=== PATIENT | female | born 1970 | race Hispanic/Latino ===

== ENCOUNTER 2017-08-30 21:19 | Emergency (ER) | payer SELFPAY ==
--- NOTE | 2017-08-30 22:02 | CT ---
CT HEAD WITHOUT IV CONTRAST 08/30/17 HISTORY: Slurred speech and headache. COMPARISON: 05/24/17 FINDINGS: There is no evidence of an acute infarction, hemorrhage, mass effect, or midline shift. Ventricular system is normal in size, shape and position. There has been no interval change from prior study. IMPRESSION: 1. No acute intracranial abnormality is demonstrated. 2. Above findings discussed with Dr. Marie in the Emergency Department on 08/30/17 at [address] POS: [facility]
[2017-08-30 22:06] LABS: Hematocrit 44.3 % (36.0-47.0); Mean Platelet Volume 7.4 fL (7.4-10.4); White Blood Cell (WBC) Count 9.4 thou/uL (4.8-10.8)
[2017-08-30 22:07] LABS: #Eosinphils 0.9 thou/uL (0.0-0.7); #Lymphocytes 4.4 thou/uL (1.20-3.40); #Monocytes 0.5 thou/uL (0.11-0.59); #Neutrophils 3.5 thou/uL (1.40-6.50); %Basophils 0.3 % (0.0-1.0); %Eosinophils 9.2 % (0.0-10.0); %Lymphocytes 47.3 % (21.0-51.0); %Monocytes 5.6 % (0.0-10.0)
[2017-08-30 22:15] LABS: PTT 26.3 SEC (22.9-36.1); Prothrombin Time 15.9 SEC (12.0-14.7)
[2017-08-30 23:18] LABS: Bilirubin Small (Negative); Blood, Urine Negative (Negative); Glucose, Urine (Dipstick) 500 mg/dL (Negative); Ketone, Urine Negative (Negative); Nitrite Negative (Negative); Protein, Urine (Dipstick) 30 mg/dL (Neg-Trace); Urobilinogen 0.2 mg/dL (0.2-1.0)
[2017-08-30 23:20] LABS: Bacteria/HPF 2+ HPF (None Seen); Hyaline Casts/LPF 4-6 HYALINE CAST LPF (0-3 Hyaline)
[2017-08-30 23:27] LABS: Amphetamine Not Detected (NotDetected); Methadone Not Detected (NotDetected); Methamphetamine Not Detected (NotDetected)
[2017-08-31 00:31] LABS: ALT (SGPT) 116 U/L (8-55); AST (SGOT) 52 U/L (5-34); Alkaline Phosphatase 203 U/L (40-150); Anion Gap 13 mmol/L (10-20); BUN (Urea Nitrogen) 14 mg/dL (7.0-18.7); Bilirubin, Total 0.4 mg/dL (0.2-1.2); Calc. Creatinine Clearance 0 mL/min (70-130); Calcium 9.8 mg/dL (7.8-10.44); Carbon Dioxide 30 mmol/L (22-29); Chloride 96 mmol/L (98-107); Estimated GFR-MDRD 76; Globulin 3.8 g/dL (2.4-3.5); Protein, Total 7.6 g/dL (6.0-8.3)
[2017-08-31 00:35] LABS: Troponin I Less than 0.010 ng/mL (< 0.028)
== END 2017-08-30 23:40 | disposition home or self-care (01) ==
LOC: ERS 21:19
DX: R53.83 Other fatigue (principal); R47.81 Slurred speech; E11.9 Type 2 diabetes mellitus without complications; M06.9 Rheumatoid arthritis, unspecified; F41.9 Anxiety disorder, unspecified; F32.9 Major depressive disorder, single episode, unspecified; Z79.01 Long term (current) use of anticoagulants; Z79.4 Long term (current) use of insulin; Z79.899 Other long term (current) drug therapy
CPT/HCPCS: 36415; 36416; 70450; 80053; 80306; 81003; 81015; 82553; 84484; 85025; 85610; 85730; 93005

== ENCOUNTER 2017-10-18 11:06 | Emergency (ER) | payer SELFPAY | END 2017-10-18 15:29 | disposition home or self-care (01) | LOC: ERS 11:06 | DX: T42.6X1A Poisoning by other antiepileptic and sedative-hypnotic drugs, accidental (unintentional), initial encounter (principal); T48.1X1A Poisoning by skeletal muscle relaxants [neuromuscular blocking agents], accidental (unintentional), initial encounter; T40.2X1A Poisoning by other opioids, accidental (unintentional), initial encounter; K04.7 Periapical abscess without sinus; E11.9 Type 2 diabetes mellitus without complications; M19.90 Unspecified osteoarthritis, unspecified site; F41.9 Anxiety disorder, unspecified; F32.9 Major depressive disorder, single episode, unspecified; M06.9 Rheumatoid arthritis, unspecified | CPT/HCPCS: 93005 ==

== ENCOUNTER 2017-11-09 15:42 | Emergency (ER) | payer SELFPAY | END 2017-11-09 17:40 | disposition home or self-care (01) | LOC: ERS 15:42 | DX: E11.65 Type 2 diabetes mellitus with hyperglycemia (principal); K02.9 Dental caries, unspecified; F41.9 Anxiety disorder, unspecified; F32.9 Major depressive disorder, single episode, unspecified; E78.00 Pure hypercholesterolemia, unspecified; M19.90 Unspecified osteoarthritis, unspecified site; M06.9 Rheumatoid arthritis, unspecified | CPT/HCPCS: 36416; 99284 ==

== ENCOUNTER 2020-02-08 18:24 | Emergency (ER) | payer SELFPAY ==
--- NOTE | 2020-02-08 19:16 | RAD ---
EXAM: Single view of the chest HISTORY: Hypoglycemia with cough and fever COMPARISON: 05/22/2017 FINDINGS: Single view of the chest shows a normal sized cardiomediastinal silhouette. There is no daniel dence of consolidation, mass, or pleural effusion. The bones are unremarkable. IMPRESSION: No evidence of acute cardiopulmonary disease
[2020-02-08 19:30] LABS: Bilirubin Negative (Negative); Blood, Urine Negative (Negative); Clarity Clear (Clear); Glucose, Urine (Dipstick) 500 mg/dL (Negative); Leukocyte 25 Leu/uL (Negative); Mucous/LPF Rare LPF (<2+); Nitrite Negative (Negative); Protein, Urine (Dipstick) 20 mg/dL (Neg-Trace); RBC/HPF 0-3 HPF (0-3); Urobilinogen Normal mg/dL (Less than 2)
[2020-02-08 19:32] LABS: Bacteria/HPF 1+ HPF (None Seen)
[2020-02-08 19:38] LABS: WBC/HPF 0-3 HPF (0-3)
[2020-02-08 20:29] LABS: #Basophils 0.1 thou/uL (0.0-0.2); #Eosinphils 0.5 thou/uL (0.0-0.7); #Lymphocytes 4.8 thou/uL (1.20-3.40); #Monocytes 0.5 thou/uL (0.11-0.59); #Neutrophils 5.6 thou/uL (1.40-6.50); %Basophils 0.9 % (0.0-1.0); %Eosinophils 4.6 % (0.0-10.0); %Lymphocytes 41.5 % (21.0-51.0); %Monocytes 4.4 % (0.0-10.0); %Neutrophils 48.7 % (42.0-75.0); Hemoglobin 13.9 g/dL (12.0-16.0); Mean Corpuscular HGB CONC 33.6 g/dL (32.0-36.0); Mean Corpuscular Hemoglobin 31.7 pg (27.0-31.0); Mean Corpuscular Volume 94.5 fL (78.0-98.0); Mean Platelet Volume 6.8 fL (7.4-10.4); Platelet Count 349 thou/uL (130-400); RBC Distribution Width 11.3 % (11.5-14.5); Red Blood Cell (RBC) Count 4.38 mill/uL (4.20-5.40); White Blood Cell (WBC) Count 11.6 thou/uL (4.8-10.8)
[2020-02-08 20:57] LABS: ALT (SGPT) 27 U/L (8-55); AST (SGOT) 21 U/L (5-34); Albumin 4.1 g/dL (3.5-5.0); Alkaline Phosphatase 152 U/L (40-110); Anion Gap 14 mmol/L (10-20); BUN (Urea Nitrogen) 10 mg/dL (7.0-18.7); Bilirubin, Total 0.3 mg/dL (0.2-1.2); Calc. Creatinine Clearance 0 mL/min (70-130); Calcium 9.6 mg/dL (7.8-10.44); Carbon Dioxide 23 mmol/L (22-29); Chloride 108 mmol/L (98-107); Estimated GFR-MDRD 75; Globulin 3.3 g/dL (2.4-3.5); Glucose 102 mg/dL (70-105); Potassium 3.9 mmol/L (3.5-5.1); Protein, Total 7.4 g/dL (6.0-8.3); Sodium 141 mmol/L (136-145)
[2020-02-08] MEDS ORDERED: Acetaminophen 500 MG TAB ONE (22:29)
== END 2020-02-09 00:11 | disposition home or self-care (01) ==
LOC: ERS 18:24
DX: E11.649 Type 2 diabetes mellitus with hypoglycemia without coma (principal); B37.3 Candidiasis of vulva and vagina; E78.00 Pure hypercholesterolemia, unspecified; F41.9 Anxiety disorder, unspecified; F32.9 Major depressive disorder, single episode, unspecified
CPT/HCPCS: 36415; 36416; 71045; 80053; 81003; 81015; 85025; 96360; 96361

== ENCOUNTER 2020-08-22 01:27 | Emergency (ER) | payer BC, OTHER ==
[2020-08-22 12:12] LABS: SARS-CoV-2 MS2 Positive; SARS-CoV-2 N Gene Negative; SARS-CoV-2 S Gene Negative; SARS-CoV-2 by NAA Not Detected (NotDetected); SARS-CoV-2 orf1ab Negative
--- NOTE | 2020-08-22 13:09 | RAD ---
PORTABLE CHEST: HISTORY: Fever and cough. COMPARISON: 02/08/2020 exam. FINDINGS: Heart size and mediastinum are within normal limits. The lungs appear clear of any infiltrative proc ess. IMPRESSION: No active intrathoracic disease. POS: [facility]
== END 2020-08-22 03:02 | disposition home or self-care (01) ==
LOC: ERS 01:27
DX: R50.9 Fever, unspecified (principal); R05 Cough; Z20.828 Contact with and (suspected) exposure to other viral communicable diseases; E11.9 Type 2 diabetes mellitus without complications; E78.5 Hyperlipidemia, unspecified; M79.7 Fibromyalgia; F41.9 Anxiety disorder, unspecified; F31.9 Bipolar disorder, unspecified; Z79.4 Long term (current) use of insulin; Z79.899 Other long term (current) drug therapy
CPT/HCPCS: 36416; 71045; 87635; U0003

== ENCOUNTER 2020-10-05 12:50 | Emergency (ER) | payer BC | END 2020-10-05 15:43 | disposition home or self-care (01) | LOC: ERS 12:50 | DX: M79.652 Pain in left thigh (principal); R20.2 Paresthesia of skin; E11.9 Type 2 diabetes mellitus without complications; E78.00 Pure hypercholesterolemia, unspecified; F41.9 Anxiety disorder, unspecified; F31.9 Bipolar disorder, unspecified; Z79.899 Other long term (current) drug therapy; Z79.4 Long term (current) use of insulin | CPT/HCPCS: 51798 ==

== ENCOUNTER 2020-11-22 18:32 | Emergency (ER) | payer BC ==
--- NOTE | 2020-11-22 19:56 | RAD ---
EXAM: CHEST ONE VIEW HISTORY: Generalized malaise, nausea, diarrhea, and cough. COMPARISON: 08/22/2020 FINDINGS: The cardiac silhouette and pulmonary vasculature are within normal limits. The lungs are clear. The o sseous structures are intact. Chest is stable compared to prior exam. IMPRESSION: No acute cardiopulmonary process.
[2020-11-23 02:08] LABS: SARS-CoV-2 MS2 Positive; SARS-CoV-2 N Gene Negative; SARS-CoV-2 S Gene Negative; SARS-CoV-2 by NAA Not Detected (NotDetected); SARS-CoV-2 orf1ab Negative
== END 2020-11-22 20:05 | disposition home or self-care (01) ==
LOC: ERS 18:32
DX: R53.81 Other malaise (principal); R19.7 Diarrhea, unspecified; R05 Cough; Z20.822 Contact with and (suspected) exposure to COVID-19; E11.9 Type 2 diabetes mellitus without complications; E78.00 Pure hypercholesterolemia, unspecified; Z79.4 Long term (current) use of insulin; Z79.899 Other long term (current) drug therapy
CPT/HCPCS: 71045; 87635; 87804; U0003

== ENCOUNTER 2020-12-27 17:43 | Emergency (ER) | payer BC ==
--- NOTE | 2020-12-27 18:43 | RAD ---
PORTABLE CHEST ONE VIEW: Date: 12-27-2020 Time: 6:38 p.m. History: Fever. Comparison: 11-22-2020 FINDINGS: The heart size is normal. No lobar consolidation, pneumothoraces, or pleural effusions are seen. IMPRESSION: No acute process. POS: [facility]
[2020-12-27 19:56] LABS: Hemoglobin 15.3 g/dL (12.0-16.0); Mean Corpuscular HGB CONC 33.2 g/dL (32.0-36.0); Mean Corpuscular Hemoglobin 31.6 pg (27.0-31.0); Mean Corpuscular Volume 95.4 fL (78.0-98.0); Platelet Count 435 thou/uL (130-400); RBC Distribution Width 12.4 % (11.5-14.5); Red Blood Cell (RBC) Count 4.84 mill/uL (4.20-5.40); White Blood Cell (WBC) Count 15.5 thou/uL (4.8-10.8)
[2020-12-27 20:08] LABS: Eosinophils 5 % (0-10); Lymphocytes 62 % (21-51); MDiff Complete? YES; Monocytes 2 % (0-10); Neutrophil 31 % (42-75); Platelet Morphology Comment Appears Increased; RBC Morphology Normal
[2020-12-27 21:10] LABS: ALT (SGPT) 12 U/L (8-55); AST (SGOT) 19 U/L (5-34); Albumin 4.1 g/dL (3.5-5.0); Alkaline Phosphatase 121 U/L (40-110); Anion Gap 20 mmol/L (10-20); BUN (Urea Nitrogen) 12 mg/dL (7.0-18.7); Bilirubin, Total 0.2 mg/dL (0.2-1.2); Calc. Creatinine Clearance 0 mL/min (70-130); Calcium 9.3 mg/dL (7.8-10.44); Carbon Dioxide 16 mmol/L (22-29); Chloride 108 mmol/L (98-107); Globulin 3.6 g/dL (2.4-3.5); Protein, Total 7.7 g/dL (6.0-8.3); Sodium 139 mmol/L (136-145)
[2020-12-27 21:24] LABS: Glucose 58 mg/dL (70-105)
[2020-12-27 23:33] LABS: Bilirubin Negative (Negative); Blood, Urine Negative (Negative); Clarity Clear (Clear); Glucose, Urine (Dipstick) 30 mg/dL (Negative); Ketone, Urine Negative (Negative); Leukocyte Negative Leu/uL (Negative); Nitrite Negative (Negative); Protein, Urine (Dipstick) Negative (Neg-Trace); Specific Gravity, Urine 1.013 (1.002-1.036); Urobilinogen Normal mg/dL (Less than 2)
[2020-12-28 04:56] LABS: SARS-CoV-2 PCR by NAA Not Detected (NotDetected)
== END 2020-12-27 23:52 | disposition home or self-care (01) ==
LOC: ERS 17:43
DX: B00.9 Herpesviral infection, unspecified (principal); E11.9 Type 2 diabetes mellitus without complications; E78.00 Pure hypercholesterolemia, unspecified; Z79.899 Other long term (current) drug therapy; Z79.4 Long term (current) use of insulin; Z20.822 Contact with and (suspected) exposure to COVID-19
CPT/HCPCS: 36415; 36416; 71045; 80053; 81003; 83690; 84484; 85025; 87086; 87635; 87804; 93005; U0003; U0005

== ENCOUNTER 2021-01-05 15:46 | Observation (INO) | payer BC ==
[~2021-01-05 15:46] MED LIST: Iopamidol-370 76% 500 ML 1 ML ONE
[2021-01-05] MEDS ORDERED: Morphine 2 MG/ML VIAL ONE ×2 (16:21→19:23)
[2021-01-05] MEDS ORDERED: Promethazine HCl 25 MG/ML VIAL ONE ×2 (16:23→19:23)
--- NOTE | 2021-01-05 17:14 | RAD ---
PORTABLE CHEST:: Indications: Shortness of breath. Comparison: 12-27-2020 FINDINGS: Lungs appear clear. No infiltrate identified. Heart and mediastinum unremarkable. IMPRESSION: No acute process. POS: [facility]
[2021-01-05 17:27] LABS: #Eosinphils 0.5 thou/uL (0.0-0.7); #Lymphocytes 3.9 thou/uL (1.20-3.40); #Monocytes 0.5 thou/uL (0.11-0.59); #Neutrophils 6.7 thou/uL (1.40-6.50); %Basophils 0.4 % (0.0-1.0); %Lymphocytes 33.7 % (21.0-51.0); %Monocytes 4.1 % (0.0-10.0); %Neutrophils 57.8 % (42.0-75.0); Hemoglobin 13.1 g/dL (12.0-16.0); Mean Corpuscular HGB CONC 32.9 g/dL (32.0-36.0); Mean Corpuscular Hemoglobin 31.5 pg (27.0-31.0); Mean Corpuscular Volume 95.7 fL (78.0-98.0); Mean Platelet Volume 6.6 fL (7.4-10.4); Platelet Count 347 thou/uL (130-400); RBC Distribution Width 12.6 % (11.5-14.5); Red Blood Cell (RBC) Count 4.17 mill/uL (4.20-5.40); White Blood Cell (WBC) Count 11.6 thou/uL (4.8-10.8)
[2021-01-05 17:52] LABS: ALT (SGPT) 16 U/L (8-55); AST (SGOT) 17 U/L (5-34); Albumin 4.1 g/dL (3.5-5.0); Alkaline Phosphatase 121 U/L (40-110); Anion Gap 15 mmol/L (10-20); BUN (Urea Nitrogen) 14 mg/dL (7.0-18.7); Bilirubin, Total 0.3 mg/dL (0.2-1.2); Calc. Creatinine Clearance 0 mL/min (70-130); Calcium 10.2 mg/dL (7.8-10.44); Carbon Dioxide 24 mmol/L (22-29); Chloride 107 mmol/L (98-107); Globulin 3.1 g/dL (2.4-3.5); Lipase 22 U/L (8-78); Magnesium 1.5 mg/dL (1.6-2.6); Potassium 3.7 mmol/L (3.5-5.1); Protein, Total 7.2 g/dL (6.0-8.3); Sodium 142 mmol/L (136-145)
[2021-01-05 18:03] LABS: Glucose 42 mg/dL (70-105)
[2021-01-05 20:06] LABS: SARS-CoV-2 NAA Rapid Test Not Detected (NotDetected)
[2021-01-05] MEDS ORDERED: Dextrose 50% Abboject 50 ML SYRINGE ONE (21:11)
--- NOTE | 2021-01-05 21:15 | CT ---
CTA CHEST WITH CONTRAST: Axial tomograms obtained following angio protocol with multiplanar reconstruction and 3D post process ing. Indications: Cough. Mental status change. Chest pain. FINDINGS: Pulmonary arteries are adequately enhanced although peripheral pulmonary arteries are degraded due to loss of enhancement and motion artifact. No evidence of proximal pulmonary embolus to the segmental level. Mediastinum unremarkable. No adenopathy. Thoracic aorta unremarkable. Lung justice appear clear of infiltrate. No effusion. Images through the upper abdomen again reveal a right adrenal nodule which has increased in size when compared to 2017. It measures 2.2 cm today where it previously measured 1.3 cm. It does have low att enuation and may represent benign adenoma but cannot be adequately characterized on this single phase study. The cyst mass in the left upper abdomen which was previously described as probable pancreatic in orig in is again seen and measures 3.4 cm today. This cystic mass is also increased in size when compared to 2017 at which time it measured approximately 2.4 cm. IMPRESSION: 1. No evidence of proximal pulmonary embolus. 2. No acute lung process 3. Enlarging right adrenal nodule. 4. Enlarging cystic mass in the left upper quadrant which has previously been described as proba aspen pancreatic origin. Enlargement of this mass is concerning for cystic pancreatic neoplasm although it was noted on the CT abdomen in 2016, but has significantly increased. The right adrenal nodule bloom s increased and was previously described as probable adenoma. 5. Recommend follow up elective CT abdomen with and without contrast following adrenal protocol. Both of these masses can be re-evaluated at that time. POS: [facility]
[2021-01-05] MEDS ORDERED: Dexamethasone 10 MG/ML VIAL ONE (21:20)
[2021-01-05] MEDS ORDERED: Dextrose 5% in Water 1,000 ML IV PRN (23:48)
[2021-01-05] MEDS ORDERED: Dextrose 50% Abboject 50 ML SYRINGE SLOW IVP PRN (23:48)
--- NOTE | 2021-01-06 00:06 | PDOC.HHP ---
Hospitalist HPI Confusion History of Present Illness: This is a 50-year-old female patient with a history of diabetes mellitus and ob esity who presents with ongoing confusion Allergies/Adverse Reactions: Allergy/AdvReac Type Severity Reaction Status Date / Time gabapentin Allergy Severe Verified 02/07/20 12:13 metoclopramide HCl Allergy Severe panic Verified 02/07/20 12:13 [From Reglan] attacks - severe penicillin G Allergy Severe swelling Verified 02/07/20 12:13 pregabalin [From Lyrica] Allergy Severe Verified 02/07/20 12:13 ketorolac tromethamine Allergy Intermediate Swollen Verified 02/07/20 12:13 [From Toradol] Lips prochlorperazine edisylate Allergy Intermediate Severe Verified 02/07/20 12:13 [From Compazine] Hives prochlorperazine maleate Allergy Intermediate Severe Verified 02/07/20 12:13 [From Compazine] Hives ondansetron Allergy Mild Verified 02/07/20 12:13 [From Zofran (as hydrochloride)] tramadol Allergy Mild Swollen Verified 02/07/20 12:13 Lips doxycycline Allergy Verified 02/07/20 12:13 NSAIDS (Non-Steroidal Allergy Swollen Verified 02/07/20 12:13 Anti-Inflamma Lips Home Medications: Medication Instructions Recorded Confirmed Type Atorvastatin Calcium [Lipitor] 40 mg PO HS 01/14/14 09/22/17 History Zolpidem Tartrate [Ambien] 12.5 mg PO HS 01/14/14 09/22/17 History Pantoprazole [Protonix] 40 mg PO BID 03/01/17 09/22/17 History Promethazine [Phenergan] 25 mg PO Q4HR PRN 04/08/17 09/22/17 History diphenhydrAMINE [Benadryl] 25 mg PO Q4HR PRN 04/08/17 09/22/17 History Cholecalciferol [Vitamin D3] 2,000 units PO HS #30 tab 04/10/17 09/22/17 Rx ALPRAZolam [Xanax] 2 mg PO BID 05/23/17 09/22/17 History HYDROcodone Bit/APAP 10/325 [[place]] 2 tab PO Q4HR PRN 05/23/17 09/22/17 History Pregabalin [Lyrica] 150 mg PO TID 05/23/17 09/22/17 History FLUoxetine HCl [Prozac] 40 mg PO DAILY 09/22/17 09/22/17 History Insulin Regular, Human [Humulin R 20 unit SQ ASDIR 09/22/17 09/22/17 History U-500 Kwikpen] Rivaroxaban [Xarelto] 20 mg PO DAILY 09/22/17 09/22/17 History Past History: PMHx: PSHx: FHx: Social: Hospitalist Results Result Diagrams: 01/05/21 17:06 01/05/21 17:06 Lab results: Laboratory Last Values WBC 11.6 thou/uL (4.8-10.8) H 01/05/21 17:06 RBC 4.17 mill/uL (4.20-5.40) L 01/05/21 17:06 Hgb 13.1 g/dL (12.0-16.0) 01/05/21 17:06 Hct 39.9 % (36.0-47.0) 01/05/21 17:06 MCV 95.7 fL (78.0-98.0) 01/05/21 17:06 MCH 31.5 pg (27.0-31.0) H 01/05/21 17:06 MCHC 32.9 g/dL (32.0-36.0) 01/05/21 17:06 RDW 12.6 % (11.5-14.5) 01/05/21 17:06 Plt Count 347 thou/uL (130-400) 01/05/21 17:06 MPV 6.6 fL (7.4-10.4) L 01/05/21 17:06 Neutrophils % 57.8 % (42.0-75.0) 01/05/21 17:06 Lymphocytes % 33.7 % (21.0-51.0) 01/05/21 17:06 Monocytes % 4.1 % (0.0-10.0) 01/05/21 17:06 Eosinophils % 4.0 % (0.0-10.0) 01/05/21 17:06 Basophils % 0.4 % (0.0-1.0) 01/05/21 17:06 Neutrophils # 6.7 thou/uL (1.40-6.50) H 01/05/21 17:06 Lymphocytes # 3.9 thou/uL (1.20-3.40) H 01/05/21 17:06 Monocytes # 0.5 thou/uL (0.11-0.59) 01/05/21 17:06 Eosinophils # 0.5 thou/uL (0.0-0.7) 01/05/21 17:06 Basophils # 0.0 thou/uL (0.0-0.2) 01/05/21 17:06 D-Dimer 1.06 *mcg/mL (0.27-0.43) H 01/05/21 17:06 Sodium 142 mmol/L (136-145) 01/05/21 17:06 Potassium 3.7 mmol/L (3.5-5.1) 01/05/21 17:06 Chloride 107 mmol/L (98-107) 01/05/21 17:06 Carbon Dioxide 24 mmol/L (22-29) 01/05/21 17:06 Anion Gap 15 mmol/L (10-20) 01/05/21 17:06 BUN 14 mg/dL (7.0-18.7) 01/05/21 17:06 Creatinine 0.77 mg/dL (0.6-1.1) 01/05/21 17:06 Estimated GFR (MDRD) 80 01/05/21 17:06 Glucose 42 mg/dL (70-105) L* 01/05/21 17:06 POC Glucose 97 mg/dL (70-100) 01/05/21 19:37 Lactic Acid 1.2 mmol/L (0.5-2.2) 01/05/21 17:06 Calcium 10.2 mg/dL (7.8-10.44) 01/05/21 17:06 Magnesium 1.5 mg/dL (1.6-2.6) L 01/05/21 17:06 Total Bilirubin 0.3 mg/dL (0.2-1.2) 01/05/21 17:06 AST 17 U/L (5-34) 01/05/21 17:06 ALT 16 U/L (8-55) 01/05/21 17:06 Alkaline Phosphatase 121 U/L (40-110) H 01/05/21 17:06 Troponin I Less than 0.010 ng/mL (< 0.028) 01/05/21 17:06 B-Natriuretic Peptide Less than 10.0 pg/mL (0-100) 01/05/21 17:06 Serum Total Protein 7.2 g/dL (6.0-8.3) 01/05/21 17:06 Albumin 4.1 g/dL (3.5-5.0) 01/05/21 17:06 Globulin 3.1 g/dL (2.4-3.5) 01/05/21 17:06 Albumin/Globulin Ratio 1.3 g/dL (1.2-2.2) 01/05/21 17:06 Lipase 22 U/L (8-78) 01/05/21 17:06 Influenza A RNA INAAT Not Detected (NotDetected) 01/05/21 19:09 Influenza B RNA INAAT Not Detected (NotDetected) 01/05/21 19:09 SARS-CoV-2 Rap RNA(RT-PCR) Not Detected (NotDetected) 01/05/21 19:09 Hospitalist H&P A/P Plan: This is a 50-year-old male patient with a history of diabetes mellitus who presents with worsening confusion noted to be ulcerations of hypoglycemia. She also has incidental enlarging pancreatic as well as adrenal glands. Hypoglycemia Unclear etiology possibly from insulin use Also concerns for pancreatic tumor We will have surgery assess for biopsy to characterize. Acute hypoxic respiratory failure Patient intubated for airway protection C3 of. We appreciate pulmonology input and management. Possible sepsis patient Patient has mild leukocytosis altered mental state No source currently noted however will cover with antibiotics We will continue monitoring. VT prophylaxis Lovenox CODE STATUSfull code
[2021-01-06] MEDS ORDERED: Acetaminophen 325 MG TAB ONE (01:34)
[2021-01-06] MEDS ORDERED: Zolpidem Tartrate 5 MG TAB PO PRN (01:57)
[2021-01-06] MEDS ORDERED: Gabapentin 400 MG CAP PO SCH (02:00)
[2021-01-06] MEDS ORDERED: Lithium Carbonate ER 450 mg Tablet PO SCH ×2 (02:00→08:00)
--- NOTE | 2021-01-06 02:16 | PDOC.HHP ---
Hospitalist HPI Altered mental status History of Present Illness: This is a 50-year-old female patient with a history of diabetes mellitus and obesity who presents with confusion. She notes having had episodes of cough and fever however those have improved and not worsened. She was feeling a bit confused alongside the symptoms however brought in by her family for further assessment. Patient notes that she was at home when she started feeling funny and generally confused. She also had some cough and diarrhea stools. Patient notes that most of her family members had Covid recently. She notes that her cough has been nonproductive however she admits to fever. She denies any chest pain wheezing. She denies any frequency and dysuria. On presentation blood pressure was 111/77, pulse 107, respirate 17 saturation 98% on room air. Labs showed WBC of 11.6, hemoglobin 13.1 and platelets 347. Chemistry showed hypoglycemia of 42 with magnesium at 1.5 and alkaline phosphatase 121. Lactate was 1.2. D-dimer was elevated at 1.06 Covid test was negative. Chest x-ray revealed no significant lab abnormalities and CTA revealed no pulmonary embolism. An enlarged cystic mass of the left upper quadrant was however noticed. Concerns may be from pancreatic origin.. Right adrenal gland also increased in size from previous probable adenoma. Follow-up abdominal imaging recommended. In the ED she was given ondansetron and dexamethasone and dextrose 50%. Also received Phenergan morphine and 1 L normal saline. Hospitalist team was consulted for admission. Allergies/Adverse Reactions: Allergy/AdvReac Type Severity Reaction Status Date / Time gabapentin Allergy Severe Verified 02/07/20 12:13 metoclopramide HCl Allergy Severe panic Verified 02/07/20 12:13 [From Reglan] attacks - severe penicillin G Allergy Severe swelling Verified 02/07/20 12:13 pregabalin [From Lyrica] Allergy Severe Verified 02/07/20 12:13 ketorolac tromethamine Allergy Intermediate Swollen Verified 02/07/20 12:13 [From Toradol] Lips prochlorperazine edisylate Allergy Intermediate Severe Verified 02/07/20 12:13 [From Compazine] Hives prochlorperazine maleate Allergy Intermediate Severe Verified 02/07/20 12:13 [From Compazine] Hives ondansetron Allergy Mild Verified 02/07/20 12:13 [From Zofran (as hydrochloride)] tramadol Allergy Mild Swollen Verified 02/07/20 12:13 Lips doxycycline Allergy Verified 02/07/20 12:13 NSAIDS (Non-Steroidal Allergy Swollen Verified 02/07/20 12:13 Anti-Inflamma Lips Home Medications: Medication Instructions Recorded Confirmed Type Atorvastatin Calcium [Lipitor] 40 mg PO HS 01/14/14 09/22/17 History Zolpidem Tartrate [Ambien] 12.5 mg PO HS 01/14/14 09/22/17 History Pantoprazole [Protonix] 40 mg PO BID 03/01/17 09/22/17 History Promethazine [Phenergan] 25 mg PO Q4HR PRN 04/08/17 09/22/17 History diphenhydrAMINE [Benadryl] 25 mg PO Q4HR PRN 04/08/17 09/22/17 History Cholecalciferol [Vitamin D3] 2,000 units PO HS #30 tab 04/10/17 09/22/17 Rx ALPRAZolam [Xanax] 2 mg PO BID 05/23/17 09/22/17 History HYDROcodone Bit/APAP 10/325 [[place]] 2 tab PO Q4HR PRN 05/23/17 09/22/17 History Pregabalin [Lyrica] 150 mg PO TID 05/23/17 09/22/17 History FLUoxetine HCl [Prozac] 40 mg PO DAILY 09/22/17 09/22/17 History Insulin Regular, Human [Humulin R 20 unit SQ ASDIR 09/22/17 09/22/17 History U-500 Kwikpen] Rivaroxaban [Xarelto] 20 mg PO DAILY 09/22/17 09/22/17 History Past History: PMHx: Diabetes mellitus, obesity PSHx:Cholecystectomy nephrectomy FHx: None of significance Social: Lives with family She does not drink smoke or use illicit drugs. Hospitalist RENETTA MCINTOSH Constitutional: reports: fever. denies: chills, sweats, weakness Respiratory: reports: cough. denies: shortness of breath, hemoptysis, SOB with excertion Cardiovascular: denies: chest pain, palpitations, orthopnea, paroxysmal noc. dyspnea Gastrointestinal: denies: nausea, vomiting, abdominal pain, diarrhea Genitourinary: denies: dysuria, frequency, incontinence Musculoskeletal: reports: back pain. denies: neck pain, shoulder pain, arm pain Neurological: denies: weakness, numbness, incoordination, change in speech All other systems reviewed; all pertinent +/- noted in HPI/Subj Hospitalist Exam General Appearance: awake alert General - other findings: Obese in no Acute distress Eye: PERRL, anicteric sclera ENT: normocephalic atraumatic Neck: supple, symmetric, no JVD Heart: RRR, no murmur, no gallops, no rubs, normal peripheral pulses Respiratory: CTAB, no wheezes, no rales, no ronchi Gastrointestinal: soft, non-tender, non-distended, normal bowel sounds Extremities: no cyanosis, no clubbing, no edema Neurological: cranial nerve grossly intact, no weakness, no focal deficits Psychiatric: normal affect, normal behavior, A&O x 3 Hospitalist Results Result Diagrams: 01/05/21 17:06 01/05/21 17:06 Lab results: Laboratory Last Values WBC 11.6 thou/uL (4.8-10.8) H 01/05/21 17:06 RBC 4.17 mill/uL (4.20-5.40) L 01/05/21 17:06 Hgb 13.1 g/dL (12.0-16.0) 01/05/21 17:06 Hct 39.9 % (36.0-47.0) 01/05/21 17:06 MCV 95.7 fL (78.0-98.0) 01/05/21 17:06 MCH 31.5 pg (27.0-31.0) H 01/05/21 17:06 MCHC 32.9 g/dL (32.0-36.0) 01/05/21 17:06 RDW 12.6 % (11.5-14.5) 01/05/21 17:06 Plt Count 347 thou/uL (130-400) 01/05/21 17:06 MPV 6.6 fL (7.4-10.4) L 01/05/21 17:06 Neutrophils % 57.8 % (42.0-75.0) 01/05/21 17:06 Lymphocytes % 33.7 % (21.0-51.0) 01/05/21 17:06 Monocytes % 4.1 % (0.0-10.0) 01/05/21 17:06 Eosinophils % 4.0 % (0.0-10.0) 01/05/21 17:06 Basophils % 0.4 % (0.0-1.0) 01/05/21 17:06 Neutrophils # 6.7 thou/uL (1.40-6.50) H 01/05/21 17:06 Lymphocytes # 3.9 thou/uL (1.20-3.40) H 01/05/21 17:06 Monocytes # 0.5 thou/uL (0.11-0.59) 01/05/21 17:06 Eosinophils # 0.5 thou/uL (0.0-0.7) 01/05/21 17:06 Basophils # 0.0 thou/uL (0.0-0.2) 01/05/21 17:06 D-Dimer 1.06 *mcg/mL (0.27-0.43) H 01/05/21 17:06 Sodium 142 mmol/L (136-145) 01/05/21 17:06 Potassium 3.7 mmol/L (3.5-5.1) 01/05/21 17:06 Chloride 107 mmol/L (98-107) 01/05/21 17:06 Carbon Dioxide 24 mmol/L (22-29) 01/05/21 17:06 Anion Gap 15 mmol/L (10-20) 01/05/21 17:06 BUN 14 mg/dL (7.0-18.7) 01/05/21 17:06 Creatinine 0.77 mg/dL (0.6-1.1) 01/05/21 17:06 Estimated GFR (MDRD) 80 01/05/21 17:06 Glucose 42 mg/dL (70-105) L* 01/05/21 17:06 POC Glucose 135 mg/dL (70-100) H 01/06/21 00:16 Lactic Acid 1.2 mmol/L (0.5-2.2) 01/05/21 17:06 Calcium 10.2 mg/dL (7.8-10.44) 01/05/21 17:06 Magnesium 1.5 mg/dL (1.6-2.6) L 01/05/21 17:06 Total Bilirubin 0.3 mg/dL (0.2-1.2) 01/05/21 17:06 AST 17 U/L (5-34) 01/05/21 17:06 ALT 16 U/L (8-55) 01/05/21 17:06 Alkaline Phosphatase 121 U/L (40-110) H 01/05/21 17:06 Troponin I Less than 0.010 ng/mL (< 0.028) 01/05/21 17:06 B-Natriuretic Peptide Less than 10.0 pg/mL (0-100) 01/05/21 17:06 Serum Total Protein 7.2 g/dL (6.0-8.3) 01/05/21 17:06 Albumin 4.1 g/dL (3.5-5.0) 01/05/21 17:06 Globulin 3.1 g/dL (2.4-3.5) 01/05/21 17:06 Albumin/Globulin Ratio 1.3 g/dL (1.2-2.2) 01/05/21 17:06 Lipase 22 U/L (8-78) 01/05/21 17:06 Influenza A RNA INAAT Not Detected (NotDetected) 01/05/21 19:09 Influenza B RNA INAAT Not Detected (NotDetected) 01/05/21 19:09 SARS-CoV-2 Rap RNA(RT-PCR) Not Detected (NotDetected) 01/05/21 19:09 Hospitalist H&P A/P Plan: This is a 50-year-old female patient with a history of diabetes mellitus and obesity who presents with confusion and noted to have hypoglycemia and incidental enlarging pancreatic mass. Hypoglycemia Patient glucose has been low however she has diabetes. We will monitor overnight. This may be from the pancreatic mass Monitor glucose q. 1 Surgery evaluation and possible biopsy in a.m. Cough This is occasional We will monitor. Adrenal incidentaloma History of serial imaging Pancreatic mass Unclear whether malignancy benign Consult surgery for possible biopsy Diabetes mellitus Correctional insulin Monitor glucose. VT prophylaxisLovenox CODE STATUSfull code
[2021-01-06] MEDS ORDERED: Zolpidem Tartrate 5 MG TAB ONE (02:35)
[2021-01-06 07:17] LABS: #Lymphocytes 1.3 thou/uL (1.20-3.40); #Neutrophils 7.7 thou/uL (1.40-6.50); %Basophils 0.1 % (0.0-1.0); %Eosinophils 0.1 % (0.0-10.0); %Monocytes 0.4 % (0.0-10.0); %Neutrophils 85.3 % (42.0-75.0); Hemoglobin 13.8 g/dL (12.0-16.0); Mean Corpuscular HGB CONC 32.4 g/dL (32.0-36.0); Mean Corpuscular Hemoglobin 31.5 pg (27.0-31.0); Mean Corpuscular Volume 97.1 fL (78.0-98.0); Mean Platelet Volume 6.7 fL (7.4-10.4); Platelet Count 337 thou/uL (130-400); RBC Distribution Width 12.6 % (11.5-14.5); White Blood Cell (WBC) Count 9.1 thou/uL (4.8-10.8)
[2021-01-06 07:36] LABS: Anion Gap 17 mmol/L (10-20); BUN (Urea Nitrogen) 15 mg/dL (7.0-18.7); Calc. Creatinine Clearance 0 mL/min (70-130); Calcium 10.2 mg/dL (7.8-10.44); Carbon Dioxide 23 mmol/L (22-29); Chloride 103 mmol/L (98-107); Glucose 321 mg/dL (70-105); Potassium 4.5 mmol/L (3.5-5.1); Sodium 138 mmol/L (136-145)
[2021-01-06] MEDS ORDERED: HumaLOG 300 UNITS/3 ML VIAL ONE (10:12)
[2021-01-06] MEDS ORDERED: Morphine 4 MG/ML VIAL SLOW IVP ONE (10:18)
[2021-01-06] MEDS: HumaLOG 300 UNITS/3 ML VIAL SC PRN ×2 (10:23→18:15)
[2021-01-06] MEDS ORDERED: Enoxaparin Sodium 40 MG/0.4 ML SYRINGE ONE (10:25)
[2021-01-06] MEDS: Gabapentin 400 MG CAP PO SCH ×4 (11:33→23:20)
[2021-01-06] MEDS ORDERED: Benztropine 1 MG TAB PO SCH (11:45)
[2021-01-06] MEDS: Enoxaparin Sodium 40 MG/0.4 ML SYRINGE SC SCH (12:13)
[2021-01-06] MEDS ORDERED: Insulin Glargine 10 UNITS in Pre-Filled Syringe SC SCH (12:15)
[2021-01-06 16:11] VITALS: BMI 40.7
[2021-01-06] MEDS ORDERED: Metoclopramide HCl 10 MG/2 ML VIAL IVP PRN (18:24)
[2021-01-06] MEDS ORDERED: ACETAMINOPHEN WITH CODEINE PO PRN (18:25)
[2021-01-06] MEDS ORDERED: diphenhydrAMINE 25 MG CAP PO PRN (18:25)
--- NOTE | 2021-01-06 18:36 | PDOC.HOSPP ---
- Subjective Encounter Date: 01/06/21 Subjective: Patient is well-appearing does report pain in her right upper quadrant area - Objective Vital Signs & Weight: Vital Signs (12 hours) Temp Pulse Resp BP Pulse Ox 01/06/21 16:11 98.3 F 105 H 20 136/91 H 99 Weight Weight 230 lb Result Diagrams: 01/06/21 07:04 01/06/21 07:04 Additional Labs: Accuchecks 01/06/21 01/06/21 01/06/21 12:32 09:54 06:42 POC Glucose 259 H 315 H 290 H 01/06/21 01/06/21 01/06/21 05:13 04:14 02:42 POC Glucose 336 H 381 H 225 H 01/06/21 01/06/21 01/05/21 01:39 00:16 21:04 POC Glucose 214 H 135 H 61 L 01/05/21 01/05/21 19:37 18:35 POC Glucose 97 60 L Radiology Reviewed by me: Yes Hospitalist ROS - Medication Medications: Active Medications Generic Name Dose Route Start Last Admin Trade Name Freq PRN Reason Stop Dose Admin Enoxaparin Sodium 40 mg 01/06/21 09:00 01/06/21 12:13 Enoxaparin Sodium 40 Mg/0.4 Ml Syringe SC 40 mg 0900 HALI Administration Gabapentin 800 mg 01/06/21 09:00 01/06/21 16:42 Gabapentin 400 Mg Cap PO 800 mg QID HALI Administration Insulin Human Lispro 0 units 01/05/21 23:48 01/06/21 18:15 Humalog 300 Units/3 Ml Vial SC 4 unit .MILD SLIDING SCALE PRN Administration Mild Correctional Scale [place] Carbonate 450 mg 01/06/21 08:00 01/06/21 08:09 [place] Carbonate Er 450 Mg Tablet PO 450 mg QAM-WM HALI Administration Zolpidem Tartrate 10 mg 01/06/21 01:57 01/06/21 02:37 Zolpidem Tartrate 5 Mg Tab PO 10 mg HSPRN PRN Administration Insomnia Hospitalist Exam Vitals: Vital Signs (12 hours) Temp Pulse Resp BP Pulse Ox 01/06/21 16:11 98.3 F 105 H 20 136/91 H 99 Weight Weight 230 lb General Appearance: NAD, awake alert Eye: PERRL, anicteric sclera ENT: normocephalic atraumatic Neck: supple, symmetric, no JVD Heart: RRR, no murmur, no gallops, no rubs Respiratory: CTAB, no wheezes, no rales, no ronchi Gastrointestinal: no rigidity, tender to palpation Extremities: no cyanosis, no clubbing Skin: normal turgor Hosp A/P (1) Hypoglycemia Code(s): E16.2 - HYPOGLYCEMIA, UNSPECIFIED Status: Acute (2) Conversion disorder with abnormal movement, acute episode Code(s): F44.4 - CONVERSION DISORDER WITH MOTOR SYMPTOM OR DEFICIT Status: Acute (3) Hyperglycemia Code(s): R73.9 - HYPERGLYCEMIA, UNSPECIFIED Status: Acute (4) Abdominal mass, left upper quadrant Code(s): R19.02 - LEFT UPPER QUADRANT ABDOMINAL SWELLING, MASS AND LUMP Status: Chronic (5) Anxiety and depression Code(s): F41.9 - ANXIETY DISORDER, UNSPECIFIED; F32.9 - MAJOR DEPRESSIVE DISORDER, SINGLE EPISODE, UNSPECIFIED Status: Chronic (6) HTN (hypertension) Code(s): I10 - ESSENTIAL (PRIMARY) HYPERTENSION Status: Chronic (7) Morbid obesity with BMI of 40.0-44.9, adult Code(s): E66.01 - MORBID (SEVERE) OBESITY DUE TO EXCESS CALORIES; Z68.41 - BODY MASS INDEX [BMI]40.0-44.9, ADULT Status: Chronic - Plan Neuro--- patient has history of bipolar/depression we will continue with her current psychiatric medication including lithium, benztropine. GI----CAT scan did show an enlarging pancreatic mass and adrenal mass significantly bigger than when it was seen in 2016, patient follows with Dr. Blackman, I spoke with him and he said that the patient is not following with him on a regular basis, I did speak with with whom I curb sided consulted him, his recommendation is for her to go to a hepatobiliary clinic, I did call the transfer center and initiated the transfer request awaiting for them to call me back. Endocrinology----patient has a constant glycemic monitor, she has been on 65 units of Lantus twice a day and Humalog 40 units before each meal, she mentioned that she received a steroid injection which made her diabetes worse hence the increased dose of Lantus and Humalog, she does not know why she became hypoglycemic yesterday, there was no recent change in her dosages. For now we will start her on Lantus 25 twice a day and on our sliding scale and she how she does with that. Patient did exhibit some drug-seeking behavior she was asking for her Tylenol No. 4 and something for pain, for now I will start her on IV morphine on as-need ed basis since we do not have Tylenol No. 4, I really will resume her home regimen of Neurontin. For DVT prophylaxis should be on Lovenox. Addendum at 7:14 PM I received a call from the gastroenterology at [facility] and they accepted her to be transferred. She can go on her current medications, a communication order to the nurse was placed.
[2021-01-06] MEDS: Morphine 2 MG/ML VIAL SLOW IVP PRN ×2 (19:09→23:09)
[2021-01-06] MEDS ORDERED: Atorvastatin Calcium 20 MG TAB PO SCH (21:00)
[2021-01-06] MEDS ORDERED: Zolpidem Tartrate 5 MG TAB PO SCH (21:00)
[2021-01-06] MEDS ORDERED: Mirtazapine 30 MG TAB PO SCH (21:00)
[2021-01-06] MEDS ORDERED: Insulin Glargine 10 UNITS in Pre-Filled Syringe 1 EACH SC SCH (21:00)
[2021-01-06] MEDS: Promethazine 25 MG TAB PO PRN (22:22)
[2021-01-06] MEDS: Benztropine 1 MG TAB PO SCH (23:20)
[2021-01-06] MEDS: Cyclobenzaprine 10 MG TAB PO SCH (23:21)
[2021-01-07] MEDS ORDERED: Lithium Carbonate ER 450 mg Tablet PO SCH ×2 (00:15→09:00)
[2021-01-07] MEDS ORDERED: Acetaminophen/Codeine 30-300mg Tablet PO PRN (00:15)
[2021-01-07] MEDS ORDERED: HumaLOG 300 UNITS/3 ML VIAL SC PRN (00:17)
[2021-01-07] MEDS: Morphine 2 MG/ML VIAL SLOW IVP PRN ×3 (03:46→14:55)
[2021-01-07] MEDS: HumaLOG 300 UNITS/3 ML VIAL SC PRN ×2 (05:58→14:04)
[2021-01-07 06:38] LABS: ALT (SGPT) 13 U/L (8-55); AST (SGOT) 19 U/L (5-34); Albumin 3.4 g/dL (3.5-5.0); Alkaline Phosphatase 105 U/L (40-110); Anion Gap 17 mmol/L (10-20); BUN (Urea Nitrogen) 18 mg/dL (7.0-18.7); Bilirubin, Total 0.3 mg/dL (0.2-1.2); Calc. Creatinine Clearance 118 mL/min (70-130); Calcium 8.9 mg/dL (7.8-10.44); Carbon Dioxide 20 mmol/L (22-29); Chloride 105 mmol/L (98-107); Globulin 3.5 g/dL (2.4-3.5); Glucose 361 mg/dL (70-105); Potassium 4.5 mmol/L (3.5-5.1); Protein, Total 6.9 g/dL (6.0-8.3); Sodium 137 mmol/L (136-145)
[2021-01-07] MEDS: Cyclobenzaprine 10 MG TAB PO SCH (08:10)
[2021-01-07] MEDS: Gabapentin 400 MG CAP PO SCH ×3 (08:10→16:26)
[2021-01-07] MEDS: Benztropine 1 MG TAB PO SCH (08:12)
[2021-01-07] MEDS: Enoxaparin Sodium 40 MG/0.4 ML SYRINGE SC SCH (08:12)
[2021-01-07] MEDS: Promethazine 25 MG TAB PO PRN ×2 (08:23→15:00)
[2021-01-07] MEDS ORDERED: Insulin Glargine 20 UNITS in Pre-Filled Syringe 1 EACH SC SCH ×2 (09:00→21:00)
--- NOTE | 2021-01-07 10:44 | PDOC.DS.DS ---
Provider Date of Admission: 01/05/21 23:48 Date of Discharge: 01/07/21 Admitting Provider: Miki Baig MD Consultations: General Surgery Primary Care Physician: Ashish Reynolds MD Course Hospital Course: This is a 50-year-old female patient with a history of diabetes mellitus and obesity who presents with confusion. She notes having had episodes of cough and fever however those have improved and not worsened. She was feeling a bit confused alongside the symptoms however brought in by her family for further assessment. Patient notes that she was at home when she started feeling funny and generally confused. She also had some cough and diarrhea stools. Patient notes that most of her family members had Covid recently. She notes that her cough has been nonproductive however she admits to fever. She denies any chest pain wheezing. She denies any frequency and dysuria. On presentation blood pressure was 111/77, pulse 107, respirate 17 saturation 98% on room air. Labs showed WBC of 11.6, hemoglobin 13.1 and platelets 347. Chemistry showed hypoglycemia of 42 with magnesium at 1.5 and alkaline phosphatase 121. Lactate was 1.2. D-dimer was elevated at 1.06 Covid test was negative. Chest x-ray revealed no significant lab abnormalities and CTA revealed no pulmonary embolism. An enlarged cystic mass of the left upper quadrant was however noticed. Concerns may be from pancreatic origin.. Right adrenal gland also increased in size from previous probable adenoma. Follow-up abdominal imaging recommended. In the ED she was given ondansetron and dexamethasone and dextrose 50%. Also received Phenergan morphine and 1 L normal saline. Hospital course Neuro--- patient has history of bipolar/depression she was continued with her current psychiatric medication including lithium, benztropine. GI----CAT scan did show an enlarging pancreatic mass and adrenal mass significan tly bigger than when it was seen in 2016, patient follows with Dr. Blackman, I spoke with him and he said that the patient is not following with him on a regular basis, I did speak with with whom I curb sided consulted him, his recommendation is for her to go to a hepatobiliary clinic, I did call the transfer center and initiated the transfer request and today the patient was accepted to go to [facility]. Endocrinology----she was started on Lantus and the dose is being uptitrated. Patient did exhibit some drug-seeking behavior she was asking for her Tylenol No. 4 and something for pain, for now I will start her on IV morphine on as- needed basis since we do not have Tylenol No. 4, I really will resume her home regimen of Neurontin. For DVT prophylaxis should be on Lovenox. Patient was accepted at [facility] by the hospitalist and the gastroenterology service she will be transferred to [facility]. Resuscitation Status: 01/05/21 23:48 Resuscitation Status Routine Resuscitation Status: FULL: Full Resuscitation Lab Results: 01/06/21 07:04 01/07/21 05:49 Abnormal Lab Results - Last 48 hrs 01/05/21 17:06: Magnesium 1.5 L, Alkaline Phosphatase 121 H 01/05/21 17:06: D-Dimer 1.06 H 01/05/21 17:06: WBC 11.6 H, RBC 4.17 L, MCH 31.5 H, MPV 6.6 L, Neutrophils # 6.7 H, Lymphocytes # 3.9 H 01/06/21 07:04: MCH 31.5 H, MPV 6.7 L, Neutrophils % 85.3 H, Lymphocytes % 14.0 L, Neutrophils # 7.7 H, Monocytes # 0.0 L 01/06/21 09:52: [place] 0.697 L 01/07/21 05:49: Carbon Dioxide 20 L, Albumin 3.4 L, Albumin/Globulin Ratio 1.0 L Vitals: Vital Signs (12 hours) Temp Pulse Resp BP BP Pulse Ox 01/07/21 07:46 98.5 F 112 H 20 113/71 96 01/07/21 05:36 98.1 F 102 H 20 110/75 95 01/07/21 01:09 98.2 F 105 H 20 134/83 96 Weight Weight 230 lb Physical Exam: The patient was seen and examined on the day of discharge. General Appearance: NAD, awake alert Eye: PERRL, anicteric sclera ENT: normocephalic atraumatic Neck: supple, symmetric Respiratory: CTAB, no wheezes, no rales Cardiovascular: RRR, no murmur Problem (1) Hypoglycemia Code(s): E16.2 - HYPOGLYCEMIA, UNSPECIFIED Status: Acute (2) Conversion disorder with abnormal movement, acute episode Code(s): F44.4 - CONVERSION DISORDER WITH MOTOR SYMPTOM OR DEFICIT Status: Acute (3) Hyperglycemia Code(s): R73.9 - HYPERGLYCEMIA, UNSPECIFIED Status: Acute (4) Abdominal mass, left upper quadrant Code(s): R19.02 - LEFT UPPER QUADRANT ABDOMINAL SWELLING, MASS AND LUMP Status: Chronic (5) Anxiety and depression Code(s): F41.9 - ANXIETY DISORDER, UNSPECIFIED; F32.9 - MAJOR DEPRESSIVE DISORDER, SINGLE EPISODE, UNSPECIFIED Status: Chronic (6) HTN (hypertension) Code(s): I10 - ESSENTIAL (PRIMARY) HYPERTENSION Status: Chronic (7) Morbid obesity with BMI of 40.0-44.9, adult Code(s): E66.01 - MORBID (SEVERE) OBESITY DUE TO EXCESS CALORIES; Z68.41 - BODY MASS INDEX [BMI]40.0-44.9, ADULT Status: Chronic Time Spent in discharge related activities (mins): 45 Plan Home Medications: Medication Instructions Recorded Confirmed Type Acetaminophen With Codeine 1 tab PO Q4H PRN 01/06/21 01/06/21 History [Acetaminophen/Codeine #4] Atorvastatin Calcium [Lipitor] 20 mg PO HS 01/06/21 01/06/21 History Cyclobenzaprine [Flexeril] 10 mg PO BID 01/06/21 01/06/21 History [place] Carbonate [[place] 450 mg PO BID 01/06/21 01/06/21 History Carbonate ER] Lurasidone HCl [Latuda] 40 mg PO HS 01/06/21 01/06/21 History Mirtazapine [Remeron] 50 mg PO HS 01/06/21 01/06/21 History Pantoprazole [Protonix] 40 mg PO BID 01/06/21 01/06/21 History Promethazine [Phenergan] 25 mg PO Q4HR PRN 01/06/21 01/06/21 History diphenhydrAMINE [Benadryl] 50 mg PO HS PRN 01/06/21 01/06/21 History hydrOXYzine HCl [Hydroxyzine HCl] 100 mg PO QID 01/06/21 01/06/21 History Acetaminophen W/ Codeine 1 tab PO Q4H PRN tab 01/07/21 Rx [Acetaminophen/Codeine #3] Enoxaparin Sodium [Lovenox] 40 mg SC 0900 syringe 01/07/21 Rx Gabapentin [Neurontin] 800 mg PO QID cap 01/07/21 Rx Insulin Glargine [Lantus Vial] 20 units SC QAM vial 01/07/21 Rx Insulin Glargine [Lantus] 20 units SC HS vial 01/07/21 Rx Morphine 2 mg SLOW IVP Q4H PRN vial 01/07/21 Rx Zolpidem Tartrate [Ambien] 10 mg PO HSPRN PRN tab 01/07/21 Rx Allergies: gabapentin Allergy (Severe, Verified 02/07/20 12:13) closes her throat metoclopramide HCl [From Reglan] Allergy (Severe, Verified 02/07/20 12:13) panic attacks - severe penicillin G Allergy (Severe, Verified 02/07/20 12:13) swelling Pt reports intubation after reaction pregabalin [From Lyrica] Allergy (Severe, Verified 02/07/20 12:13) STATED IT CAUSES KETOACIDOSIS ketorolac tromethamine [From Toradol] Allergy (Intermediate, Verified 02/07/20 12:13) Swollen Lips prochlorperazine edisylate [From Compazine] Allergy (Intermediate, Verified 02/07/20 12:13) Severe Hives prochlorperazine maleate [From Compazine] Allergy (Intermediate, Verified 02/07/20 12:13) Severe Hives ondansetron [From Zofran (as hydrochloride)] Allergy (Mild, Verified 02/07/20 12:13) PT STATES TO GIVE BENADRYL FIRST AND SHE WILL DO FINE tramadol Allergy (Mild, Verified 02/07/20 12:13) Swollen Lips doxycycline Allergy (Verified 02/07/20 12:13) SWOLLEN NSAIDS (Non-Steroidal Anti-Inflamma Allergy (Verified 02/07/20 12:13) Swollen Lips Referrals: Ashish Reynolds MD [Primary Care Provider] - Disposition: OTHER HOSPITAL INPT Quality CORE MEASURES:: N/A
[2021-01-07 11:32] VITALS: TEMP 98.4
[2021-01-07 16:32] VITALS: BP 135/83
--- NOTE | 2021-01-09 15:54 | EKG ---
Test Reason : Blood Pressure : / mmHG Vent. Rate : 105 BPM Atrial Rate : 105 BPM P-R Int : 162 ms QRS Dur : 088 ms QT Int : 322 ms P-R-T Axes : 031 -04 038 degrees QTc Int : 425 ms Sinus tachycardia Cannot rule out Anterior infarct , age undetermined Abnormal ECG Confirmed by JANICE BUSTAMANTE ([id number]), supervising editor news reel NENITA PATHAK ([id number]) on 01/09/2021 3:54:16 PM Referred By: Confirmed By:JANICE BUSTAMANTE
== END 2021-01-07 16:50 | disposition short-term general hospital (02) ==
LOC: ERS 15:46 → ERHOLD 23:48 → T4-A 01-06 16:04
PROVIDERS: ADMIT Student in an Organized Health Care Education/Training Program; ATTEND Internal Medicine
DX: E11.649 Type 2 diabetes mellitus with hypoglycemia without coma (principal); R05 Cough; K86.89 Other specified diseases of pancreas; E27.8 Other specified disorders of adrenal gland; E78.00 Pure hypercholesterolemia, unspecified; M79.7 Fibromyalgia; F41.9 Anxiety disorder, unspecified; F31.9 Bipolar disorder, unspecified; F43.10 Post-traumatic stress disorder, unspecified; F44.4 Conversion disorder with motor symptom or deficit; I10 Essential (primary) hypertension; E11.65 Type 2 diabetes mellitus with hyperglycemia; E66.01 Morbid (severe) obesity due to excess calories; Z68.41 Body mass index [BMI] 40.0-44.9, adult; Z79.01 Long term (current) use of anticoagulants; Z79.4 Long term (current) use of insulin; Z79.899 Other long term (current) drug therapy; Z88.0 Allergy status to penicillin; Z88.1 Allergy status to other antibiotic agents; Z88.5 Allergy status to narcotic agent; Z88.6 Allergy status to analgesic agent; Z88.8 Allergy status to other drugs, medicaments and biological substances; Z20.822 Contact with and (suspected) exposure to COVID-19
CPT/HCPCS: 0240U; 36415; 36416; 71045; 71275; 80048; 80053; 80178; 83605; 83690; 83735; 83880; 84484; 85025; 85379; 93005; 96365; 96372; 96375; 96376; G0378; J1100; J1650; J1815; J2270; J2550; Q0169; Q9967

== ENCOUNTER 2021-02-01 15:57 | Emergency (ER) | payer BC ==
[2021-02-01] MEDS ORDERED: Promethazine HCl 25 MG/ML VIAL ONE (17:16)
[2021-02-01 17:55] LABS: #Eosinphils 0.4 thou/uL (0.0-0.7); #Lymphocytes 2.6 thou/uL (1.20-3.40); #Monocytes 0.5 thou/uL (0.11-0.59); #Neutrophils 8.4 thou/uL (1.40-6.50); %Basophils 0.4 % (0.0-1.0); %Eosinophils 3.7 % (0.0-10.0); %Lymphocytes 21.9 % (21.0-51.0); %Monocytes 4.2 % (0.0-10.0); %Neutrophils 69.9 % (42.0-75.0); Hemoglobin 13.6 g/dL (12.0-16.0); Mean Corpuscular HGB CONC 33.3 g/dL (32.0-36.0); Mean Corpuscular Hemoglobin 32.5 pg (27.0-31.0); Mean Corpuscular Volume 97.7 fL (78.0-98.0); Platelet Count 297 thou/uL (130-400); RBC Distribution Width 12.4 % (11.5-14.5); Red Blood Cell (RBC) Count 4.17 mill/uL (4.20-5.40)
[2021-02-01 18:14] LABS: ALT (SGPT) 13 U/L (8-55); AST (SGOT) 17 U/L (5-34); Alkaline Phosphatase 136 U/L (40-110); Anion Gap 15 mmol/L (10-20); BUN (Urea Nitrogen) 8 mg/dL (7.0-18.7); Bilirubin, Total 0.4 mg/dL (0.2-1.2); CK (CPK) 31 U/L (29-168); Calc. Creatinine Clearance 0 mL/min (70-130); Calcium 9.1 mg/dL (7.8-10.44); Carbon Dioxide 24 mmol/L (22-29); Chloride 105 mmol/L (98-107); Globulin 3.1 g/dL (2.4-3.5); Glucose 118 mg/dL (70-105); Potassium 3.9 mmol/L (3.5-5.1); Protein, Total 7.1 g/dL (6.0-8.3); Sodium 140 mmol/L (136-145)
== END 2021-02-01 19:15 | disposition home or self-care (01) ==
LOC: ERS 15:57
DX: E11.649 Type 2 diabetes mellitus with hypoglycemia without coma (principal); R11.2 Nausea with vomiting, unspecified; E78.00 Pure hypercholesterolemia, unspecified; Z79.899 Other long term (current) drug therapy; Z79.4 Long term (current) use of insulin
CPT/HCPCS: 36415; 36416; 80053; 82550; 84484; 85025; 93005; 96372; J2550

== ENCOUNTER 2021-02-07 21:04 | Emergency (ER) | payer BC ==
[2021-02-07] MEDS ORDERED: Fluconazole 100 MG TAB PO SCH (22:15)
== END 2021-02-07 22:47 | disposition home or self-care (01) ==
LOC: ERS 21:04
DX: E11.649 Type 2 diabetes mellitus with hypoglycemia without coma (principal); B37.2 Candidiasis of skin and nail; L30.8 Other specified dermatitis; Z79.899 Other long term (current) drug therapy; Z79.4 Long term (current) use of insulin; E78.00 Pure hypercholesterolemia, unspecified
CPT/HCPCS: 36416; 99284

== ENCOUNTER 2021-02-21 20:38 | Emergency (ER) | payer BC | END 2021-02-21 23:50 | disposition home or self-care (01) | LOC: ERS 20:38 | DX: E11.649 Type 2 diabetes mellitus with hypoglycemia without coma (principal); E78.00 Pure hypercholesterolemia, unspecified; M79.7 Fibromyalgia; Z79.4 Long term (current) use of insulin; Z79.899 Other long term (current) drug therapy | CPT/HCPCS: 36416; 99285 ==

== ENCOUNTER 2021-02-28 03:28 | Emergency (ER) | payer BC, SELFPAY ==
[2021-02-28 04:50] LABS: #Basophils 0.1 thou/uL (0.0-0.2); #Eosinphils 0.6 thou/uL (0.0-0.7); #Lymphocytes 4.3 thou/uL (1.20-3.40); #Monocytes 0.6 thou/uL (0.11-0.59); #Neutrophils 6.9 thou/uL (1.40-6.50); %Basophils 0.8 % (0.0-1.0); %Eosinophils 4.9 % (0.0-10.0); %Lymphocytes 34.5 % (21.0-51.0); %Neutrophils 54.8 % (42.0-75.0); Mean Corpuscular HGB CONC 32.9 g/dL (32.0-36.0); Mean Corpuscular Hemoglobin 32.6 pg (27.0-31.0); Mean Corpuscular Volume 99.1 fL (78.0-98.0); Mean Platelet Volume 6.9 fL (7.4-10.4); Platelet Count 335 thou/uL (130-400); Red Blood Cell (RBC) Count 3.98 mill/uL (4.20-5.40); White Blood Cell (WBC) Count 12.5 thou/uL (4.8-10.8)
[2021-02-28 05:13] LABS: ALT (SGPT) 21 U/L (8-55); AST (SGOT) 12 U/L (5-34); Albumin 3.6 g/dL (3.5-5.0); Alkaline Phosphatase 145 U/L (40-110); Anion Gap 14 mmol/L (10-20); BUN (Urea Nitrogen) 11 mg/dL (7.0-18.7); Bilirubin, Total 0.2 mg/dL (0.2-1.2); Calc. Creatinine Clearance 0 mL/min (70-130); Carbon Dioxide 24 mmol/L (22-29); Chloride 107 mmol/L (98-107); Globulin 3.3 g/dL (2.4-3.5); Lipase 13 U/L (8-78); Potassium 3.7 mmol/L (3.5-5.1); Protein, Total 6.9 g/dL (6.0-8.3); Sodium 141 mmol/L (136-145)
[2021-02-28] MEDS ORDERED: Acetaminophen 500 MG TAB ONE (05:27)
[2021-02-28 05:31] LABS: Glucose 57 mg/dL (70-105)
== END 2021-02-28 07:03 | disposition home or self-care (01) ==
LOC: ERS 03:28
DX: E11.649 Type 2 diabetes mellitus with hypoglycemia without coma (principal); E78.00 Pure hypercholesterolemia, unspecified; Z79.4 Long term (current) use of insulin; Z79.899 Other long term (current) drug therapy
CPT/HCPCS: 36415; 36416; 71045; 80053; 83690; 84484; 85025; 93005

== ENCOUNTER 2021-03-01 20:52 | Emergency (ER) | payer BC ==
[2021-03-01] MEDS ORDERED: Promethazine 25 MG TAB ONE (21:19)
== END 2021-03-01 21:24 | disposition home or self-care (01) ==
LOC: ERS 20:52
DX: E11.649 Type 2 diabetes mellitus with hypoglycemia without coma (principal); E78.00 Pure hypercholesterolemia, unspecified; Z79.899 Other long term (current) drug therapy; Z79.4 Long term (current) use of insulin
CPT/HCPCS: 36416; 99285; Q0169

== ENCOUNTER 2021-03-11 14:42 | Emergency (ER) | payer BC ==
[~2021-03-11 14:42] MED LIST changes: +Iopamidol 370 76% 100 ML VIAL ONE; -Iopamidol-370 76% 500 ML 1 ML ONE
[2021-03-11] MEDS ORDERED: Ondansetron PF 4 MG/2 ML Vial ONE (16:26)
[2021-03-11 16:38] LABS: #Basophils 0.1 thou/uL (0.0-0.2); #Eosinphils 0.4 thou/uL (0.0-0.7); #Lymphocytes 2.6 thou/uL (1.20-3.40); #Monocytes 0.4 thou/uL (0.11-0.59); #Neutrophils 9.3 thou/uL (1.40-6.50); %Basophils 0.5 % (0.0-1.0); %Eosinophils 3.3 % (0.0-10.0); %Lymphocytes 20.3 % (21.0-51.0); %Monocytes 3.4 % (0.0-10.0); %Neutrophils 72.6 % (42.0-75.0); Hemoglobin 12.2 g/dL (12.0-16.0); Mean Corpuscular Hemoglobin 31.5 pg (27.0-31.0); Mean Corpuscular Volume 98.4 fL (78.0-98.0); Mean Platelet Volume 6.7 fL (7.4-10.4); Platelet Count 363 thou/uL (130-400); RBC Distribution Width 11.9 % (11.5-14.5); Red Blood Cell (RBC) Count 3.86 mill/uL (4.20-5.40); White Blood Cell (WBC) Count 12.8 thou/uL (4.8-10.8)
[2021-03-11] MEDS ORDERED: Promethazine HCl 25 MG/ML VIAL ONE (16:58)
[2021-03-11] MEDS ORDERED: Fentanyl 100 MCG/2 ML VIAL ONE (16:58)
[2021-03-11 17:01] LABS: ALT (SGPT) 8 U/L (8-55); AST (SGOT) 11 U/L (5-34); Albumin 3.6 g/dL (3.5-5.0); Alkaline Phosphatase 152 U/L (40-110); Anion Gap 14 mmol/L (10-20); BUN (Urea Nitrogen) 10 mg/dL (7.0-18.7); Bilirubin, Total 0.4 mg/dL (0.2-1.2); Calc. Creatinine Clearance 0 mL/min (70-130); Calcium 9.5 mg/dL (7.8-10.44); Carbon Dioxide 24 mmol/L (22-29); Chloride 104 mmol/L (98-107); Globulin 3.4 g/dL (2.4-3.5); Glucose 204 mg/dL (70-105); Lipase 7 U/L (8-78); Magnesium 1.7 mg/dL (1.6-2.6); Potassium 3.9 mmol/L (3.5-5.1); Sodium 138 mmol/L (136-145)
[2021-03-11 19:08] LABS: Bilirubin Negative (Negative); Blood, Urine Negative (Negative); Clarity Clear (Clear); Glucose, Urine (Dipstick) Normal (Negative); Ketone, Urine Negative (Negative); Leukocyte Negative Leu/uL (Negative); Nitrite Negative (Negative); Protein, Urine (Dipstick) Negative (Neg-Trace); Urobilinogen Normal mg/dL (Less than 2); pH, Urine 6.5 (5.0-9.0)
[2021-03-11 19:09] LABS: Specific Gravity, Urine 1.043 (1.002-1.036)
== END 2021-03-11 19:57 | disposition home or self-care (01) ==
LOC: ERS 14:42
DX: R07.89 Other chest pain (principal); E11.649 Type 2 diabetes mellitus with hypoglycemia without coma; E78.00 Pure hypercholesterolemia, unspecified; Z79.4 Long term (current) use of insulin; Z79.899 Other long term (current) drug therapy
CPT/HCPCS: 36416; 71045; 71275; 80053; 81003; 83690; 83735; 84484; 85025; 85379; 93005; 96374; 96375; J2405; J2550; J3010; Q9967

== ENCOUNTER 2021-04-30 00:44 | Emergency (ER) | payer BC ==
[2021-04-30 02:04] LABS: #Eosinphils 0.5 thou/uL (0.0-0.7); #Lymphocytes 2.9 thou/uL (1.20-3.40); #Monocytes 0.6 thou/uL (0.11-0.59); #Neutrophils 8.6 thou/uL (1.40-6.50); %Basophils 0.1 % (0.0-1.0); %Eosinophils 4.2 % (0.0-10.0); %Lymphocytes 22.9 % (21.0-51.0); %Monocytes 4.7 % (0.0-10.0); %Neutrophils 68.1 % (42.0-75.0); Hemoglobin 12.8 g/dL (12.0-16.0); Mean Corpuscular HGB CONC 33.6 g/dL (32.0-36.0); Mean Corpuscular Hemoglobin 32.8 pg (27.0-31.0); Mean Corpuscular Volume 97.4 fL (78.0-98.0); Mean Platelet Volume 6.9 fL (7.4-10.4); Platelet Count 296 thou/uL (130-400); RBC Distribution Width 11.8 % (11.5-14.5); Red Blood Cell (RBC) Count 3.91 mill/uL (4.20-5.40); White Blood Cell (WBC) Count 12.7 thou/uL (4.8-10.8)
[2021-04-30 02:22] LABS: ALT (SGPT) 10 U/L (8-55); AST (SGOT) 11 U/L (5-34); Albumin 3.6 g/dL (3.5-5.0); Alkaline Phosphatase 118 U/L (40-110); Anion Gap 11 mmol/L (10-20); BUN (Urea Nitrogen) 13 mg/dL (7.0-18.7); Bilirubin, Total 0.2 mg/dL (0.2-1.2); Calc. Creatinine Clearance 0 mL/min (70-130); Calcium 9.3 mg/dL (7.8-10.44); Carbon Dioxide 25 mmol/L (22-29); Chloride 107 mmol/L (98-107); Globulin 3.3 g/dL (2.4-3.5); Glucose 78 mg/dL (70-105); Lipase 16 U/L (8-78); Potassium 3.3 mmol/L (3.5-5.1); Protein, Total 6.9 g/dL (6.0-8.3); Sodium 140 mmol/L (136-145)
== END 2021-04-30 03:19 | disposition home or self-care (01) ==
LOC: ERS 00:44
DX: E11.649 Type 2 diabetes mellitus with hypoglycemia without coma (principal); R11.10 Vomiting, unspecified; R10.11 Right upper quadrant pain; Z79.899 Other long term (current) drug therapy; Z79.4 Long term (current) use of insulin
CPT/HCPCS: 36415; 36416; 80053; 83690; 84484; 85025; 99284

== ENCOUNTER 2021-07-03 16:09 | Emergency (ER) | payer BC ==
[2021-07-03 17:25] LABS: #Basophils 0.1 thou/uL (0.0-0.2); #Eosinphils 0.4 thou/uL (0.0-0.7); #Lymphocytes 3.3 thou/uL (1.20-3.40); #Monocytes 0.5 thou/uL (0.11-0.59); #Neutrophils 7.9 thou/uL (1.40-6.50); %Basophils 0.8 % (0.0-1.0); %Eosinophils 3.5 % (0.0-10.0); %Lymphocytes 26.8 % (21.0-51.0); %Monocytes 4.4 % (0.0-10.0); %Neutrophils 64.5 % (42.0-75.0); Mean Corpuscular HGB CONC 33.7 g/dL (32.0-36.0); Mean Corpuscular Hemoglobin 32.4 pg (27.0-31.0); Mean Corpuscular Volume 96.2 fL (78.0-98.0); Mean Platelet Volume 6.7 fL (7.4-10.4); Platelet Count 354 thou/uL (130-400); RBC Distribution Width 12.2 % (11.5-14.5); Red Blood Cell (RBC) Count 4.31 mill/uL (4.20-5.40); White Blood Cell (WBC) Count 12.2 thou/uL (4.8-10.8)
[2021-07-03 17:44] LABS: ALT (SGPT) 35 U/L (8-55); AST (SGOT) 28 U/L (5-34); Albumin 4.1 g/dL (3.5-5.0); Alkaline Phosphatase 158 U/L (40-110); Anion Gap 16 mmol/L (10-20); BUN (Urea Nitrogen) 7 mg/dL (7.0-18.7); Bilirubin, Total 0.9 mg/dL (0.2-1.2); Calc. Creatinine Clearance 0 mL/min (70-130); Calcium 9.9 mg/dL (7.8-10.44); Carbon Dioxide 21 mmol/L (22-29); Chloride 106 mmol/L (98-107); Globulin 3.7 g/dL (2.4-3.5); Glucose 192 mg/dL (70-105); Magnesium 1.8 mg/dL (1.6-2.6); Protein, Total 7.8 g/dL (6.0-8.3); Sodium 139 mmol/L (136-145)
[2021-07-03 19:21] LABS: BHCG - Serum Negative (NEGATIVE); Pregs Control Background? CLEAR/WHITE (CLR/WHITE); Pregs Control Bar Appear? YES (CONTROL BAR)
[2021-07-03] MEDS ORDERED: Promethazine HCl 25 MG/ML VIAL ONE ×2 (20:15→20:49)
[2021-07-03] MEDS ORDERED: Promethazine HCl 12.5 MG SUPP ONE (20:16)
[2021-07-03] MEDS ORDERED: Lidocaine Viscous Sol 2% 15 ml UD Cup ONE (21:31)
[2021-07-03 22:31] LABS: Bacteria/HPF 2+ HPF (None Seen); Bilirubin Negative (Negative); Blood, Urine Negative (Negative); Clarity Clear (Clear); Glucose, Urine (Dipstick) Normal (Negative); Ketone, Urine Negative (Negative); Leukocyte Negative Leu/uL (Negative); Nitrite Negative (Negative); Protein, Urine (Dipstick) 30 mg/dL (Neg-Trace); RBC/HPF 0-3 HPF (0-3); Specific Gravity, Urine 1.029 (1.002-1.036); Urobilinogen Normal mg/dL (Less than 2); pH, Urine 6.5 (5.0-9.0)
== END 2021-07-03 22:50 | disposition home or self-care (01) ==
LOC: ERS 16:09
DX: R11.2 Nausea with vomiting, unspecified (principal); R19.7 Diarrhea, unspecified; E11.9 Type 2 diabetes mellitus without complications; E78.00 Pure hypercholesterolemia, unspecified; Z77.22 Contact with and (suspected) exposure to environmental tobacco smoke (acute) (chronic); Z79.4 Long term (current) use of insulin; Z79.899 Other long term (current) drug therapy
CPT/HCPCS: 36415; 80053; 81003; 81015; 83605; 83690; 83735; 84443; 84484; 84703; 85025; 96372; 99284; J2550

== ENCOUNTER 2021-09-27 23:28 | Inpatient (IN) | payer BC, SELFPAY ==
[2021-09-27] MEDS ORDERED: Dextrose 50% Abboject 50 ML SYRINGE ONE (23:46)
[2021-09-28] MEDS ORDERED: Dextrose 50% Abboject 50 ML SYRINGE ONE ×2 (00:53→04:47)
[2021-09-28 01:08] LABS: #Eosinphils 0.5 thou/uL (0.0-0.7); #Lymphocytes 4.4 thou/uL (1.20-3.40); #Monocytes 0.5 thou/uL (0.11-0.59); #Neutrophils 8.6 thou/uL (1.40-6.50); %Basophils 0.3 % (0.0-1.0); %Eosinophils 3.3 % (0.0-10.0); %Lymphocytes 31.4 % (21.0-51.0); %Monocytes 3.6 % (0.0-10.0); %Neutrophils 61.4 % (42.0-75.0); Mean Corpuscular HGB CONC 33.9 g/dL (32.0-36.0); Mean Corpuscular Hemoglobin 33.5 pg (27.0-31.0); Mean Corpuscular Volume 98.8 fL (78.0-98.0); Mean Platelet Volume 6.4 fL (7.4-10.4); Platelet Count 387 thou/uL (130-400); RBC Distribution Width 12.1 % (11.5-14.5); Red Blood Cell (RBC) Count 3.89 mill/uL (4.20-5.40)
[2021-09-28 01:28] LABS: ALT (SGPT) 17 U/L (8-55); AST (SGOT) 14 U/L (5-34); Albumin 3.9 g/dL (3.5-5.0); Alkaline Phosphatase 111 U/L (40-110); Anion Gap 12 mmol/L (10-20); BUN (Urea Nitrogen) 13 mg/dL (7.0-18.7); Bilirubin, Total 0.3 mg/dL (0.2-1.2); Calc. Creatinine Clearance 0 mL/min (70-130); Calcium 10.2 mg/dL (7.8-10.44); Carbon Dioxide 26 mmol/L (22-29); Chloride 106 mmol/L (98-107); Globulin 3.6 g/dL (2.4-3.5); Potassium 3.6 mmol/L (3.5-5.1); Protein, Total 7.5 g/dL (6.0-8.3); Sodium 140 mmol/L (136-145)
[2021-09-28 01:46] LABS: Glucose 50 mg/dL (70-105)
[2021-09-28] MEDS ORDERED: HumaLOG 300 UNITS/3 ML VIAL SC PRN ×2 (03:04)
[2021-09-28] MEDS ORDERED: Dextrose 50% Abboject 50 ML SYRINGE SLOW IVP PRN (03:04)
[2021-09-28] MEDS ORDERED: Acetaminophen 650 MG Suppository PR PRN (03:04)
[2021-09-28] MEDS ORDERED: Ondansetron ODT 4 MG TAB PO PRN (03:04)
[2021-09-28] MEDS ORDERED: Acetaminophen 325 MG TAB PO PRN (03:04)
[2021-09-28] MEDS ORDERED: Ondansetron PF 4 MG/2 ML Vial IVP PRN (03:04)
[2021-09-28] MEDS ORDERED: Dextrose 5% in Water 1,000 ML IV PRN (03:04)
[2021-09-28 03:21] LABS: Actual Bicarbonate (HCO3a) 21.9 mEq/L (22-28); Analyzer IN Cardio ER; Base Excess (BEa) -1.7 mEq/L (-2.0 to +3.0); CO2 Tension 33.4 mmHg (35.0-45.0); Calcium, Ionized (arterial) 1.21 mmol/L (1.12-1.30); Carboxyhemoglobin (COHb) 0.6 gm% (0.0-3.0); Hemoglobin (Hb) 12.7 g/dL (12.0-16.0); O2 Tension (PaO2), arterial 89.4 mmHg (80.0-100.0); Potassium - ABG Lab 3.69 mmol/L (3.70-5.30); pH, Arterial 7.43 (7.35-7.45)
[2021-09-28 03:22] LABS: Puncture Site RRA
[2021-09-28] MEDS ORDERED: Cefepime 2 GM in Sodium Chloride 0.9% 100 ML IVPB SCH (03:30)
[2021-09-28] MEDS ORDERED: Vancomycin 1 GM/200 ML BAG ONE (03:45)
[2021-09-28] MEDS ORDERED: Cefepime 2 GM VIAL ONE (03:46)
[2021-09-28 05:48] LABS: Magnesium 1.6 mg/dL (1.6-2.6)
[2021-09-28] MEDS ORDERED: D5 1/2 NS w/20 mEq KCL 0 ML ONE (06:09)
[2021-09-28] MEDS ORDERED: Magnesium 2 GM/50 ML 2 GM in Premix Bag 1 BAG IVPB SCH (07:30)
[2021-09-28 07:51] LABS: Amphetamine Not Detected (NotDetected); Barbiturates Screen Not Detected (NotDetected); Benzodiazepine Screen Not Detected (NotDetected); Cocaine Metabolite Screen Not Detected (NotDetected); Methadone Not Detected (NotDetected); Methamphetamine Not Detected (NotDetected); Opiate Screen Not Detected (NotDetected); Oxycodone Screen Not Detected (NotDetected); Phencyclidine (PCP) Not Detected (NotDetected); THC/Cannabinoid Screen Not Detected (NotDetected); Tricyclic Screen Not Detected (NotDetected)
[2021-09-28 08:01] LABS: Acetaminophen Less than 6.0 mcg/mL (10.0-30.0); Alcohol Less than 10 mg/dL (Less than 10); Salicylate Less than 8.0 mg/dL (15.0-30.0)
[2021-09-28 08:08] LABS: Anion Gap 14 mmol/L (10-20); BUN (Urea Nitrogen) 12 mg/dL (7.0-18.7); Calc. Creatinine Clearance 0 mL/min (70-130); Calcium 8.7 mg/dL (7.8-10.44); Carbon Dioxide 20 mmol/L (22-29); Chloride 111 mmol/L (98-107); Glucose 182 mg/dL (70-105); Potassium 4.3 mmol/L (3.5-5.1); Sodium 141 mmol/L (136-145)
[2021-09-28 08:54] LABS: Lactic Acid 1.2 mmol/L (0.5-2.2)
[2021-09-28] MEDS: Dextrose 10% in Water 1,000 ML IV SCH ×2 (08:54→20:53)
[2021-09-28] MEDS ORDERED: Enoxaparin Sodium 40 MG/0.4 ML SYRINGE ONE (08:57)
[2021-09-28] MEDS ORDERED: Magnesium 2 GM/50 ML BAG (IN WATER) ONE (08:57)
[2021-09-28] MEDS: Enoxaparin Sodium 40 MG/0.4 ML SYRINGE SC SCH (09:42)
[2021-09-28] MEDS ORDERED: HYDROcodone/Acetaminophen 5/325 mg Tablet PO SCH (10:00)
[2021-09-28 11:10] LABS: SARS-CoV-2 NAA Rapid Test Not Detected (NotDetected)
[2021-09-28] MEDS ORDERED: HYDROcodone/Acetaminophen 5/325 mg Tablet ONE (13:14)
[2021-09-28] MEDS: Gabapentin 400 MG CAP PO SCH ×3 (13:24→20:47)
[2021-09-28] MEDS ORDERED: Vancomycin HCl 1.25 GM in Sodium Chloride 0.9% 250 ML 250 ML IVPB SCH (16:00)
[2021-09-28] MEDS: Cefepime 2 GM in Sodium Chloride 0.9% 100 ML IVPB SCH (17:51)
[2021-09-28] MEDS ORDERED: Cyclobenzaprine 10 MG TAB PO PRN (20:06)
[2021-09-28] MEDS ORDERED: Acetaminophen/Codeine 30-300mg Tablet PO PRN (20:06)
[2021-09-28] MEDS: Morphine 4 MG/ML VIAL SLOW IVP PRN (20:47)
[2021-09-28] MEDS ORDERED: Mirtazapine 30 MG TAB PO SCH (21:00)
[2021-09-28] MEDS: Atorvastatin Calcium 20 MG TAB PO SCH (21:51)
[2021-09-28] MEDS: hydrOXYzine 25 MG TAB PO SCH (21:51)
[2021-09-28] MEDS: diphenhydrAMINE 25 MG CAP PO SCH (21:51)
[2021-09-28] MEDS: Zolpidem Tartrate 5 MG TAB PO PRN (22:59)
[2021-09-29] MEDS: Cefepime 2 GM in Sodium Chloride 0.9% 100 ML IVPB SCH (03:47)
[2021-09-29] MEDS ORDERED: Vancomycin HCl 1.25 GM in Sodium Chloride 0.9% 250 ML 250 ML IVPB SCH ×2 (04:00→09:00)
[2021-09-29 05:45] LABS: #Eosinphils 0.6 thou/uL (0.0-0.7); #Lymphocytes 3.6 thou/uL (1.20-3.40); #Monocytes 0.5 thou/uL (0.11-0.59); #Neutrophils 6.2 thou/uL (1.40-6.50); %Basophils 0.3 % (0.0-1.0); %Eosinophils 5.1 % (0.0-10.0); %Lymphocytes 32.9 % (21.0-51.0); %Monocytes 4.4 % (0.0-10.0); %Neutrophils 57.3 % (42.0-75.0); Mean Platelet Volume 6.7 fL (7.4-10.4); Platelet Count 314 thou/uL (130-400); RBC Distribution Width 12.1 % (11.5-14.5); Red Blood Cell (RBC) Count 3.76 mill/uL (4.20-5.40); White Blood Cell (WBC) Count 10.8 thou/uL (4.8-10.8)
[2021-09-29 06:41] LABS: ALT (SGPT) 20 U/L (8-55); AST (SGOT) 27 U/L (5-34); Albumin 3.3 g/dL (3.5-5.0); Alkaline Phosphatase 102 U/L (40-110); Anion Gap 12 mmol/L (10-20); BUN (Urea Nitrogen) 10 mg/dL (7.0-18.7); Bilirubin, Total 0.4 mg/dL (0.2-1.2); Calc. Creatinine Clearance 165 mL/min (70-130); Carbon Dioxide 20 mmol/L (22-29); Chloride 108 mmol/L (98-107); Globulin 3.2 g/dL (2.4-3.5); Magnesium 1.7 mg/dL (1.6-2.6); Potassium 3.9 mmol/L (3.5-5.1); Protein, Total 6.5 g/dL (6.0-8.3); Sodium 136 mmol/L (136-145)
[2021-09-29 06:45] LABS: Glucose 44 mg/dL (70-105)
[2021-09-29] MEDS: Morphine 4 MG/ML VIAL SLOW IVP PRN (07:31)
[2021-09-29] MEDS ORDERED: Magnesium 2 GM/50 ML 2 GM in Premix Bag 1 BAG IVPB SCH (08:15)
[2021-09-29] MEDS: diphenhydrAMINE 25 MG CAP PO SCH ×2 (09:14→20:55)
[2021-09-29] MEDS: hydrOXYzine 25 MG TAB PO SCH ×4 (09:14→20:53)
[2021-09-29] MEDS: Gabapentin 400 MG CAP PO SCH ×4 (09:15→20:51)
[2021-09-29] MEDS: Enoxaparin Sodium 40 MG/0.4 ML SYRINGE SC SCH (09:16)
[2021-09-29] MEDS: Dextrose 10% in Water 1,000 ML IV SCH (09:16)
[2021-09-29] MEDS: Benztropine 1 MG TAB PO SCH ×2 (12:54→20:51)
[2021-09-29] MEDS: HYDROcodone/Acetaminophen 5/325 mg Tablet PO PRN ×2 (14:33→20:53)
[2021-09-29] MEDS: cefTRIAXone\\ROCEPHIN 1 GM in Sodium Chloride 0.9% 100 ML IVPB SCH (14:34)
[2021-09-29] MEDS ORDERED: Calcium Carbonate 500 MG ChewTAB PO SCH (19:00)
[2021-09-29] MEDS: Zolpidem Tartrate 5 MG TAB PO PRN (20:54)
[2021-09-29] MEDS: Atorvastatin Calcium 20 MG TAB PO SCH (20:55)
[2021-09-30] MEDS: HYDROcodone/Acetaminophen 5/325 mg Tablet PO PRN ×3 (01:56→15:50)
[2021-09-30 04:13] LABS: #Eosinphils 0.7 thou/uL (0.0-0.7); #Lymphocytes 3.6 thou/uL (1.20-3.40); #Monocytes 0.5 thou/uL (0.11-0.59); #Neutrophils 4.4 thou/uL (1.40-6.50); %Basophils 0.2 % (0.0-1.0); %Eosinophils 7.3 % (0.0-10.0); %Lymphocytes 39.1 % (21.0-51.0); %Monocytes 5.1 % (0.0-10.0); %Neutrophils 48.3 % (42.0-75.0); Mean Corpuscular HGB CONC 33.2 g/dL (32.0-36.0); Mean Corpuscular Hemoglobin 33.1 pg (27.0-31.0); Mean Corpuscular Volume 99.6 fL (78.0-98.0); Mean Platelet Volume 7.3 fL (7.4-10.4); Platelet Count 240 thou/uL (130-400); Red Blood Cell (RBC) Count 3.62 mill/uL (4.20-5.40); White Blood Cell (WBC) Count 9.1 thou/uL (4.8-10.8)
[2021-09-30 04:39] LABS: Anion Gap 13 mmol/L (10-20); BUN (Urea Nitrogen) 9 mg/dL (7.0-18.7); Calc. Creatinine Clearance 169 mL/min (70-130); Calcium 9.1 mg/dL (7.8-10.44); Carbon Dioxide 20 mmol/L (22-29); Chloride 109 mmol/L (98-107); Glucose 167 mg/dL (70-105); Potassium 4.4 mmol/L (3.5-5.1); Sodium 138 mmol/L (136-145)
[2021-09-30 06:11] VITALS: BMI 43.7
[2021-09-30] MEDS ORDERED: Benztropine 1 MG TAB PO SCH (07:30)
[2021-09-30] MEDS: diphenhydrAMINE 25 MG CAP PO SCH (10:05)
[2021-09-30] MEDS: Benztropine 1 MG TAB PO SCH ×2 (10:05→16:00)
[2021-09-30] MEDS: Gabapentin 400 MG CAP PO SCH ×2 (10:06→15:50)
[2021-09-30] MEDS: Enoxaparin Sodium 40 MG/0.4 ML SYRINGE SC SCH (10:08)
[2021-09-30] MEDS: hydrOXYzine 25 MG TAB PO SCH ×2 (10:08→15:51)
[2021-09-30 15:35] VITALS: BP 132/68; TEMP 98.8
[2021-09-30] MEDS: cefTRIAXone\\ROCEPHIN 1 GM in Sodium Chloride 0.9% 100 ML IVPB SCH (16:00)
== END 2021-09-30 16:48 | disposition home or self-care (01) | DRG 871 ==
LOC: ERS 23:28 → ERHOLD 09-28 01:21 → 2NO 09-28 14:08
PROVIDERS: ADMIT Student in an Organized Health Care Education/Training Program; ATTEND Internal Medicine
DX: A41.9 Sepsis, unspecified organism (principal); G93.41 Metabolic encephalopathy; N39.0 Urinary tract infection, site not specified; Z68.41 Body mass index [BMI] 40.0-44.9, adult; T38.3X1A Poisoning by insulin and oral hypoglycemic [antidiabetic] drugs, accidental (unintentional), initial encounter; E11.649 Type 2 diabetes mellitus with hypoglycemia without coma; E78.00 Pure hypercholesterolemia, unspecified; M32.9 Systemic lupus erythematosus, unspecified; F41.9 Anxiety disorder, unspecified; F31.9 Bipolar disorder, unspecified; F43.10 Post-traumatic stress disorder, unspecified; K21.9 Gastro-esophageal reflux disease without esophagitis; G89.4 Chronic pain syndrome; M19.90 Unspecified osteoarthritis, unspecified site; E66.01 Morbid (severe) obesity due to excess calories; Z20.822 Contact with and (suspected) exposure to COVID-19; Z88.8 Allergy status to other drugs, medicaments and biological substances; Y92.9 Unspecified place or not applicable; Y92.009 Unspecified place in unspecified non-institutional (private) residence as the place of occurrence of the external cause; Z88.0 Allergy status to penicillin; Z88.5 Allergy status to narcotic agent; Z79.899 Other long term (current) drug therapy; Z79.4 Long term (current) use of insulin
CPT/HCPCS: 36415; 36416; 36600; 71045; 80048; 80053; 80178; 80306; 80307; 82140; 82805; 83036; 83605; 83735; 84443; 85025; 93005; J0692; J0696; J1610; J1650; J2270; J3370; J3475; J3480; J3490; J7050; U0002

== ENCOUNTER 2021-10-20 19:32 | Observation (INO) | payer SELFPAY ==
[2021-10-20] MEDS ORDERED: Dextrose 50% Abboject 50 ML SYRINGE ONE (19:59)
[2021-10-20 21:09] LABS: #Eosinphils 0.3 thou/uL (0.0-0.7); #Lymphocytes 2.2 thou/uL (1.20-3.40); #Monocytes 0.6 thou/uL (0.11-0.59); #Neutrophils 12.1 thou/uL (1.40-6.50); %Basophils 0.2 % (0.0-1.0); %Lymphocytes 14.3 % (21.0-51.0); %Monocytes 3.9 % (0.0-10.0); %Neutrophils 79.6 % (42.0-75.0); Mean Corpuscular Hemoglobin 33.8 pg (27.0-31.0); Mean Corpuscular Volume 99.3 fL (78.0-98.0); Mean Platelet Volume 6.8 fL (7.4-10.4); Platelet Count 298 thou/uL (130-400); RBC Distribution Width 11.7 % (11.5-14.5); Red Blood Cell (RBC) Count 3.85 mill/uL (4.20-5.40); White Blood Cell (WBC) Count 15.2 thou/uL (4.8-10.8)
[2021-10-20 21:29] LABS: ALT (SGPT) 14 U/L (8-55); AST (SGOT) 24 U/L (5-34); Albumin 3.7 g/dL (3.5-5.0); Alkaline Phosphatase 121 U/L (40-110); Anion Gap 12 mmol/L (10-20); BUN (Urea Nitrogen) 7 mg/dL (7.0-18.7); Bilirubin, Total 0.3 mg/dL (0.2-1.2); Calc. Creatinine Clearance 0 mL/min (70-130); Calcium 9.7 mg/dL (7.8-10.44); Carbon Dioxide 26 mmol/L (22-29); Chloride 104 mmol/L (98-107); Globulin 3.4 g/dL (2.4-3.5); Glucose 170 mg/dL (70-105); Potassium 3.5 mmol/L (3.5-5.1); Protein, Total 7.1 g/dL (6.0-8.3); Sodium 138 mmol/L (136-145)
[2021-10-20 22:12] LABS: Bilirubin Negative (Negative); Blood, Urine Negative (Negative); Clarity Clear (Clear); Glucose, Urine (Dipstick) Normal (Negative); Ketone, Urine Negative (Negative); Leukocyte Negative Leu/uL (Negative); Nitrite Negative (Negative); Protein, Urine (Dipstick) Negative (Neg-Trace); Specific Gravity, Urine 1.007 (1.002-1.036); Urobilinogen Normal mg/dL (Less than 2)
[2021-10-21] MEDS ORDERED: Acetaminophen 325 MG TAB PO PRN (00:43)
[2021-10-21] MEDS ORDERED: Dextrose 50% Abboject 50 ML SYRINGE SLOW IVP PRN (00:46)
[2021-10-21] MEDS ORDERED: Dextrose 5% in Water 1,000 ML IV PRN (00:46)
[2021-10-21] MEDS ORDERED: Promethazine HCl 25 MG/ML VIAL ONE (01:34)
[2021-10-21] MEDS: Promethazine HCl 12.5 MG in Sodium Chloride 0.9% 50 ML IVPB PRN ×3 (01:44→22:28)
[2021-10-21 03:57] LABS: SARS-CoV-2 NAA Rapid Test Not Detected (NotDetected)
[2021-10-21 05:29] LABS: Anion Gap 15 mmol/L (10-20); BUN (Urea Nitrogen) 6 mg/dL (7.0-18.7); Calc. Creatinine Clearance 0 mL/min (70-130); Calcium 9.2 mg/dL (7.8-10.44); Carbon Dioxide 20 mmol/L (22-29); Chloride 103 mmol/L (98-107); Glucose 141 mg/dL (70-105); Potassium 3.5 mmol/L (3.5-5.1); Sodium 134 mmol/L (136-145)
[2021-10-21 07:59] LABS: #Eosinphils 0.4 thou/uL (0.0-0.7); #Lymphocytes 3.9 thou/uL (1.20-3.40); #Monocytes 0.6 thou/uL (0.11-0.59); #Neutrophils 7.8 thou/uL (1.40-6.50); %Basophils 0.4 % (0.0-1.0); %Lymphocytes 31.1 % (21.0-51.0); %Monocytes 4.4 % (0.0-10.0); %Neutrophils 61.2 % (42.0-75.0); Hemoglobin 12.5 g/dL (12.0-16.0); Mean Corpuscular HGB CONC 32.6 g/dL (32.0-36.0); Mean Corpuscular Hemoglobin 32.3 pg (27.0-31.0); Mean Corpuscular Volume 99.1 fL (78.0-98.0); Platelet Count 326 thou/uL (130-400); RBC Distribution Width 11.8 % (11.5-14.5); Red Blood Cell (RBC) Count 3.86 mill/uL (4.20-5.40); White Blood Cell (WBC) Count 12.7 thou/uL (4.8-10.8)
[2021-10-21] MEDS ORDERED: Famotidine 20 MG TAB ONE (09:34)
[2021-10-21] MEDS ORDERED: Enoxaparin Sodium 40 MG/0.4 ML SYRINGE ONE (09:34)
[2021-10-21] MEDS: Famotidine 20 MG TAB PO SCH ×2 (09:44→20:04)
[2021-10-21] MEDS: Enoxaparin Sodium 40 MG/0.4 ML SYRINGE SC SCH (09:44)
[2021-10-21 11:29] VITALS: BMI 44.5
[2021-10-21 13:57] LABS: Hemoglobin A1c 5.8 % (4.0-6.0)
[2021-10-21] MEDS: hydrOXYzine 25 MG TAB PO SCH ×2 (14:15→20:04)
[2021-10-21] MEDS: Gabapentin 400 MG CAP PO SCH ×3 (14:16→20:04)
[2021-10-21] MEDS: Benztropine 1 MG TAB PO SCH (20:05)
[2021-10-21] MEDS ORDERED: Atorvastatin Calcium 20 MG TAB PO SCH (21:00)
[2021-10-21] MEDS ORDERED: Zolpidem Tartrate 5 MG TAB PO PRN (21:10)
[2021-10-21] MEDS: HYDROcodone/Acetaminophen 5/325 mg Tablet PO PRN (21:52)
[2021-10-22 05:47] LABS: #Eosinphils 0.5 thou/uL (0.0-0.7); #Lymphocytes 3.4 thou/uL (1.20-3.40); #Monocytes 0.5 thou/uL (0.11-0.59); #Neutrophils 4.6 thou/uL (1.40-6.50); %Basophils 0.4 % (0.0-1.0); %Eosinophils 5.1 % (0.0-10.0); %Lymphocytes 37.9 % (21.0-51.0); %Monocytes 5.7 % (0.0-10.0); Mean Corpuscular HGB CONC 32.3 g/dL (32.0-36.0); Mean Corpuscular Hemoglobin 32.6 pg (27.0-31.0); Platelet Count 293 thou/uL (130-400); RBC Distribution Width 11.8 % (11.5-14.5); Red Blood Cell (RBC) Count 3.68 mill/uL (4.20-5.40); White Blood Cell (WBC) Count 9.1 thou/uL (4.8-10.8)
[2021-10-22 06:07] LABS: Anion Gap 11 mmol/L (10-20); BUN (Urea Nitrogen) 7 mg/dL (7.0-18.7); Calc. Creatinine Clearance 142 mL/min (70-130); Calcium 9.5 mg/dL (7.8-10.44); Carbon Dioxide 26 mmol/L (22-29); Chloride 105 mmol/L (98-107); Glucose 281 mg/dL (70-105); Potassium 3.7 mmol/L (3.5-5.1); Sodium 138 mmol/L (136-145)
[2021-10-22] MEDS: Gabapentin 400 MG CAP PO SCH ×2 (08:28→13:19)
[2021-10-22] MEDS: Benztropine 1 MG TAB PO SCH (08:28)
[2021-10-22] MEDS: hydrOXYzine 25 MG TAB PO SCH (08:28)
[2021-10-22] MEDS: Famotidine 20 MG TAB PO SCH (08:28)
[2021-10-22] MEDS: Enoxaparin Sodium 40 MG/0.4 ML SYRINGE SC SCH (08:29)
[2021-10-22] MEDS: HYDROcodone/Acetaminophen 5/325 mg Tablet PO PRN (09:03)
[2021-10-22] MEDS: Promethazine HCl 12.5 MG in Sodium Chloride 0.9% 50 ML IVPB PRN (09:59)
[2021-10-22 12:11] VITALS: BP 134/84; TEMP 98.3
== END 2021-10-22 13:30 | disposition home or self-care (01) ==
LOC: ERS 19:32 → ERHOLD 23:47 → 2SW 10-21 11:08
PROVIDERS: ADMIT Internal Medicine; ATTEND Internal Medicine
DX: E11.649 Type 2 diabetes mellitus with hypoglycemia without coma (principal); R19.7 Diarrhea, unspecified; D72.829 Elevated white blood cell count, unspecified; M79.7 Fibromyalgia; M32.9 Systemic lupus erythematosus, unspecified; E66.01 Morbid (severe) obesity due to excess calories; Z68.41 Body mass index [BMI] 40.0-44.9, adult; Z79.4 Long term (current) use of insulin; Z79.899 Other long term (current) drug therapy; Z88.1 Allergy status to other antibiotic agents; Z88.5 Allergy status to narcotic agent; Z88.6 Allergy status to analgesic agent; Z88.8 Allergy status to other drugs, medicaments and biological substances; Z20.822 Contact with and (suspected) exposure to COVID-19
CPT/HCPCS: 36415; 36416; 74177; 80048; 80053; 81003; 83036; 85025; 87045; 87046; 87086; 87324; 87427; 87449; 96372; 96374; 96376; 99285; G0378; J1610; J1650; J2550; U0002

== ENCOUNTER 2021-10-29 04:59 | Emergency (ER) | payer SELFPAY ==
[2021-10-29] MEDS ORDERED: Dextrose 50% Abboject 50 ML SYRINGE ONE (05:49)
[2021-10-29] MEDS ORDERED: Ondansetron ODT 4 MG TAB ONE (08:39)
== END 2021-10-29 09:58 | disposition home or self-care (01) ==
LOC: ERS 04:59
DX: E11.649 Type 2 diabetes mellitus with hypoglycemia without coma (principal); E78.00 Pure hypercholesterolemia, unspecified
CPT/HCPCS: 36416; 99284; Q0162

== ENCOUNTER 2021-11-06 16:05 | Emergency (ER) | payer SELFPAY ==
[2021-11-06] MEDS ORDERED: Promethazine 25 MG TAB ONE (16:45)
[2021-11-06 17:37] LABS: #Basophils 0.1 thou/uL (0.0-0.2); #Eosinphils 0.5 thou/uL (0.0-0.7); #Lymphocytes 3.6 thou/uL (1.20-3.40); #Monocytes 0.4 thou/uL (0.11-0.59); #Neutrophils 5.8 thou/uL (1.40-6.50); %Basophils 0.6 % (0.0-1.0); %Eosinophils 4.9 % (0.0-10.0); %Lymphocytes 34.7 % (21.0-51.0); %Monocytes 3.6 % (0.0-10.0); %Neutrophils 56.1 % (42.0-75.0); Hemoglobin 13.8 g/dL (12.0-16.0); Mean Corpuscular HGB CONC 32.2 g/dL (32.0-36.0); Mean Corpuscular Hemoglobin 32.7 pg (27.0-31.0); Mean Platelet Volume 6.3 fL (7.4-10.4); Platelet Count 337 thou/uL (130-400); RBC Distribution Width 12.1 % (11.5-14.5); Red Blood Cell (RBC) Count 4.22 mill/uL (4.20-5.40); White Blood Cell (WBC) Count 10.3 thou/uL (4.8-10.8)
[2021-11-06 17:58] LABS: ALT (SGPT) 24 U/L (8-55); AST (SGOT) 23 U/L (5-34); Albumin 3.7 g/dL (3.5-5.0); Alkaline Phosphatase 119 U/L (40-110); Anion Gap 13 mmol/L (10-20); BUN (Urea Nitrogen) 5 mg/dL (7.0-18.7); Bilirubin, Total 0.4 mg/dL (0.2-1.2); Calc. Creatinine Clearance 0 mL/min (70-130); Calcium 9.3 mg/dL (7.8-10.44); Carbon Dioxide 25 mmol/L (22-29); Chloride 108 mmol/L (98-107); Glucose 87 mg/dL (70-105); Potassium 3.8 mmol/L (3.5-5.1); Protein, Total 6.7 g/dL (6.0-8.3); Sodium 142 mmol/L (136-145)
[2021-11-06 19:18] LABS: Bilirubin Negative (Negative); Blood, Urine Negative (Negative); Clarity Turbid (Clear); Glucose, Urine (Dipstick) Normal (Negative); Ketone, Urine Negative (Negative); Leukocyte Negative Leu/uL (Negative); Nitrite Negative (Negative); Protein, Urine (Dipstick) Negative (Neg-Trace); Specific Gravity, Urine 1.011 (1.002-1.036); Urobilinogen Normal mg/dL (Less than 2)
[2021-11-06 19:23] LABS: Pregnancy Test - Urine (BHCG) Negative (Negative); Pregu Control Background? CLEAR/WHITE (CLR/WHITE); Pregu Control Bar Appear? YES (CONTROL BAR); Specific Gravity 1.011 (1.002-1.036)
== END 2021-11-06 20:11 | disposition home or self-care (01) ==
LOC: ERS 16:05
DX: E11.649 Type 2 diabetes mellitus with hypoglycemia without coma (principal); E78.00 Pure hypercholesterolemia, unspecified; Z77.22 Contact with and (suspected) exposure to environmental tobacco smoke (acute) (chronic); Z79.899 Other long term (current) drug therapy
CPT/HCPCS: 36415; 36416; 80053; 81003; 81025; 84484; 85025; 93005; Q0169

== ENCOUNTER 2021-11-20 02:46 | Emergency (ER) | payer SELFPAY ==
[2021-11-20 03:31] LABS: #Basophils 0.1 thou/uL (0.0-0.2); #Eosinphils 0.6 thou/uL (0.0-0.7); #Lymphocytes 4.8 thou/uL (1.20-3.40); #Monocytes 0.8 thou/uL (0.11-0.59); #Neutrophils 8.4 thou/uL (1.40-6.50); %Basophils 0.6 % (0.0-1.0); %Eosinophils 3.9 % (0.0-10.0); %Monocytes 5.2 % (0.0-10.0); %Neutrophils 57.3 % (42.0-75.0); Hemoglobin 14.2 g/dL (12.0-16.0); Mean Corpuscular HGB CONC 33.2 g/dL (32.0-36.0); Mean Corpuscular Hemoglobin 33.4 pg (27.0-31.0); Mean Platelet Volume 6.4 fL (7.4-10.4); Platelet Count 371 thou/uL (130-400); Red Blood Cell (RBC) Count 4.27 mill/uL (4.20-5.40); White Blood Cell (WBC) Count 14.6 thou/uL (4.8-10.8)
[2021-11-20 03:46] LABS: ALT (SGPT) 18 U/L (8-55); AST (SGOT) 17 U/L (5-34); Albumin 4.2 g/dL (3.5-5.0); Alkaline Phosphatase 154 U/L (40-110); Anion Gap 13 mmol/L (10-20); BUN (Urea Nitrogen) 6 mg/dL (7.0-18.7); Bilirubin, Total 0.2 mg/dL (0.2-1.2); Calc. Creatinine Clearance 0 mL/min (70-130); Calcium 10.6 mg/dL (7.8-10.44); Carbon Dioxide 25 mmol/L (22-29); Chloride 108 mmol/L (98-107); Globulin 3.8 g/dL (2.4-3.5); Potassium 3.3 mmol/L (3.5-5.1); Sodium 143 mmol/L (136-145)
[2021-11-20 03:50] LABS: Glucose 42 mg/dL (70-105)
[2021-11-20] MEDS ORDERED: Dextrose 50% Abboject 50 ML SYRINGE ONE ×2 (03:59→04:32)
== END 2021-11-20 06:19 | disposition home or self-care (01) ==
LOC: ERS 02:46
DX: E11.649 Type 2 diabetes mellitus with hypoglycemia without coma (principal); E78.00 Pure hypercholesterolemia, unspecified; Z79.899 Other long term (current) drug therapy
CPT/HCPCS: 36415; 36416; 80053; 85025; 96374

== ENCOUNTER 2021-12-02 23:31 | Observation (INO) | payer SELFPAY ==
[2021-12-02] MEDS ORDERED: Promethazine 25 MG TAB ONE (23:54)
[2021-12-03] MEDS ORDERED: Promethazine 25 MG TAB ONE (01:01)
[2021-12-03 01:43] LABS: #Basophils 0.1 thou/uL (0.0-0.2); #Eosinphils 0.6 thou/uL (0.0-0.7); #Lymphocytes 4.1 thou/uL (1.20-3.40); #Monocytes 0.5 thou/uL (0.11-0.59); #Neutrophils 6.3 thou/uL (1.40-6.50); %Basophils 1.2 % (0.0-1.0); %Eosinophils 5.4 % (0.0-10.0); %Lymphocytes 35.1 % (21.0-51.0); %Monocytes 4.2 % (0.0-10.0); %Neutrophils 54.1 % (42.0-75.0); Hemoglobin 13.6 g/dL (12.0-16.0); Mean Corpuscular Hemoglobin 32.6 pg (27.0-31.0); Mean Corpuscular Volume 98.9 fL (78.0-98.0); Mean Platelet Volume 6.4 fL (7.4-10.4); Platelet Count 404 thou/uL (130-400); RBC Distribution Width 11.9 % (11.5-14.5); Red Blood Cell (RBC) Count 4.15 mill/uL (4.20-5.40); White Blood Cell (WBC) Count 11.7 thou/uL (4.8-10.8)
[2021-12-03] MEDS ORDERED: Dextrose 50% Abboject 50 ML SYRINGE ONE (01:52)
[2021-12-03] MEDS ORDERED: Haloperidol Lactate 5 MG/ML VIAL ONE (01:52)
[2021-12-03 02:04] LABS: ALT (SGPT) 29 U/L (8-55); AST (SGOT) 33 U/L (5-34); Albumin 4.1 g/dL (3.5-5.0); Alkaline Phosphatase 128 U/L (40-110); Anion Gap 16 mmol/L (10-20); BUN (Urea Nitrogen) 11 mg/dL (7.0-18.7); Bilirubin, Total 0.3 mg/dL (0.2-1.2); Calc. Creatinine Clearance 0 mL/min (70-130); Calcium 10.1 mg/dL (7.8-10.44); Carbon Dioxide 22 mmol/L (22-29); Chloride 105 mmol/L (98-107); Globulin 3.8 g/dL (2.4-3.5); Potassium 3.5 mmol/L (3.5-5.1); Protein, Total 7.9 g/dL (6.0-8.3); Sodium 139 mmol/L (136-145)
[2021-12-03 02:09] LABS: Glucose 45 mg/dL (70-105)
[2021-12-03 05:45] VITALS: BMI 48.3
[2021-12-03] MEDS ORDERED: Dextrose 5% in Water 1,000 ML IV SCH (05:45)
[2021-12-03] MEDS ORDERED: HumaLOG 300 UNITS/3 ML VIAL SC PRN (07:52)
[2021-12-03] MEDS ORDERED: Dextrose 50% Abboject 50 ML SYRINGE SLOW IVP PRN (07:52)
[2021-12-03] MEDS ORDERED: Acetaminophen 325 MG TAB PO PRN (07:52)
[2021-12-03] MEDS ORDERED: Promethazine 25 MG TAB PO PRN (07:52)
[2021-12-03] MEDS ORDERED: Dextrose 5% in Water 1,000 ML IV PRN (07:52)
[2021-12-03] MEDS ORDERED: Gabapentin 400 MG CAP PO SCH (09:00)
[2021-12-03 09:27] LABS: Troponin I Less than 0.010 ng/mL (< 0.028)
[2021-12-03] MEDS: Benztropine 1 MG TAB PO SCH ×2 (12:16→21:31)
[2021-12-03] MEDS: Gabapentin 300 MG CAP PO SCH ×4 (12:17→21:31)
[2021-12-03] MEDS: Cyclobenzaprine 10 MG TAB PO SCH ×2 (12:17→21:32)
[2021-12-03] MEDS: HYDROcodone/Acetaminophen 5/325 mg Tablet PO PRN (12:18)
[2021-12-03] MEDS: Baclofen 10 MG TAB PO SCH ×2 (12:19→21:32)
[2021-12-03] MEDS: HumaLOG 300 UNITS/3 ML VIAL SC PRN ×2 (12:41→17:35)
[2021-12-03 16:52] LABS: SARS-CoV-2 PCR by NAA Not Detected (NotDetected)
[2021-12-03] MEDS ORDERED: Zolpidem Tartrate 5 MG TAB PO PRN (22:20)
[2021-12-04 07:32] VITALS: TEMP 98.4
[2021-12-04] MEDS: Benztropine 1 MG TAB PO SCH (08:38)
[2021-12-04] MEDS: Cyclobenzaprine 10 MG TAB PO SCH (08:38)
[2021-12-04] MEDS: Baclofen 10 MG TAB PO SCH (08:38)
[2021-12-04] MEDS: Gabapentin 300 MG CAP PO SCH (08:38)
[2021-12-04] MEDS: HYDROcodone/Acetaminophen 5/325 mg Tablet PO PRN ×2 (08:40→16:31)
[2021-12-04 10:38] LABS: #Basophils 0.1 thou/uL (0.0-0.2); #Eosinphils 0.6 thou/uL (0.0-0.7); #Monocytes 0.5 thou/uL (0.11-0.59); #Neutrophils 5.5 thou/uL (1.40-6.50); %Eosinophils 5.9 % (0.0-10.0); %Monocytes 4.9 % (0.0-10.0); %Neutrophils 57.2 % (42.0-75.0); Hemoglobin 13.1 g/dL (12.0-16.0); Mean Corpuscular HGB CONC 32.7 g/dL (32.0-36.0); Mean Corpuscular Hemoglobin 33.6 pg (27.0-31.0); Mean Platelet Volume 7.7 fL (7.4-10.4); Platelet Count 319 thou/uL (130-400); RBC Distribution Width 12.1 % (11.5-14.5); White Blood Cell (WBC) Count 9.6 thou/uL (4.8-10.8)
[2021-12-04 11:10] LABS: Anion Gap 16 mmol/L (10-20); BUN (Urea Nitrogen) 11 mg/dL (7.0-18.7); Calc. Creatinine Clearance 165 mL/min (70-130); Calcium 9.7 mg/dL (7.8-10.44); Carbon Dioxide 19 mmol/L (22-29); Chloride 105 mmol/L (98-107); Glucose 192 mg/dL (70-105); Potassium 5.2 mmol/L (3.5-5.1); Sodium 135 mmol/L (136-145)
[2021-12-04] MEDS: HumaLOG 300 UNITS/3 ML VIAL SC PRN (11:17)
[2021-12-04] MEDS: Gabapentin 400 MG CAP PO SCH ×2 (14:15→16:31)
[2021-12-04 15:13] LABS: Potassium 5.6 mmol/L (3.5-5.1)
[2021-12-04 15:54] VITALS: BP 114/70
== END 2021-12-04 18:10 | disposition home or self-care (01) ==
LOC: ERS 23:31 → 2NO 12-03 02:33
PROVIDERS: ADMIT Internal Medicine; ATTEND Internal Medicine
DX: T38.3X1A Poisoning by insulin and oral hypoglycemic [antidiabetic] drugs, accidental (unintentional), initial encounter (principal); E11.649 Type 2 diabetes mellitus with hypoglycemia without coma; F43.10 Post-traumatic stress disorder, unspecified; M79.7 Fibromyalgia; R07.89 Other chest pain; R11.2 Nausea with vomiting, unspecified; E11.22 Type 2 diabetes mellitus with diabetic chronic kidney disease; N18.2 Chronic kidney disease, stage 2 (mild); E87.5 Hyperkalemia; E87.1 Hypo-osmolality and hyponatremia; I34.0 Nonrheumatic mitral (valve) insufficiency; Z79.4 Long term (current) use of insulin; Z79.899 Other long term (current) drug therapy; Z88.1 Allergy status to other antibiotic agents; Z88.5 Allergy status to narcotic agent; Z88.6 Allergy status to analgesic agent; Z88.8 Allergy status to other drugs, medicaments and biological substances; Z20.822 Contact with and (suspected) exposure to COVID-19
CPT/HCPCS: 36415; 36416; 71045; 80048; 80053; 80178; 84484; 85025; 93005; 93306; 96374; 96375; G0378; J1630; J1815; Q0169; U0003; U0005

== ENCOUNTER 2022-06-07 18:52 | Inpatient (IN) | payer BC, SELFPAY ==
[2022-06-07 19:56] LABS: #Eosinphils 0.1 thou/uL (0.0-0.7); #Lymphocytes 1.4 thou/uL (1.20-3.40); #Monocytes 0.5 thou/uL (0.11-0.59); #Neutrophils 7.5 thou/uL (1.40-6.50); %Basophils 0.2 % (0.0-1.0); %Eosinophils 1.4 % (0.0-10.0); %Monocytes 5.5 % (0.0-10.0); Hemoglobin 13.7 g/dL (12.0-16.0); Mean Corpuscular HGB CONC 33.9 g/dL (32.0-36.0); Mean Corpuscular Hemoglobin 35.3 pg (27.0-31.0); Mean Platelet Volume 7.8 fL (7.4-10.4); Platelet Count 303 thou/uL (130-400); RBC Distribution Width 11.4 % (11.5-14.5); Red Blood Cell (RBC) Count 3.88 mill/uL (4.20-5.40); White Blood Cell (WBC) Count 9.6 thou/uL (4.8-10.8)
[2022-06-07] MEDS ORDERED: cefTRIAXone\\ROCEPHIN 1 GM VIAL ONE (20:03)
[2022-06-07 20:21] LABS: Bacteria/HPF None Seen HPF (None Seen); Bilirubin Negative (Negative); Blood, Urine Negative (Negative); Clarity Clear (Clear); Glucose, Urine (Dipstick) Normal (Negative); Ketone, Urine Negative (Negative); Leukocyte 500 Leu/uL (Negative); Nitrite Negative (Negative); Protein, Urine (Dipstick) 50 mg/dL (Neg-Trace); RBC/HPF 0-3 HPF (0-3); Specific Gravity, Urine 1.011 (1.002-1.036); Squamous Epithelial 0-3 HPF (0-3); Urobilinogen Normal mg/dL (Less than 2); WBC/HPF 21-50 HPF (0-3); pH, Urine 6.5 (5.0-9.0)
[2022-06-07] MEDS ORDERED: HumaLOG 300 UNITS/3 ML VIAL SC PRN (21:37)
[2022-06-07] MEDS ORDERED: Dextrose 5% in Water 1,000 ML IV PRN (21:37)
[2022-06-07] MEDS ORDERED: Dextrose 50% Abboject 50 ML SYRINGE SLOW IVP PRN (21:37)
[2022-06-07] MEDS ORDERED: Vancomycin 1 GM/200 ML BAG ONE (21:39)
[2022-06-07] MEDS ORDERED: Senokot S 8.6-50 MG TAB PO PRN (21:40)
[2022-06-07] MEDS ORDERED: Ondansetron PF 4 MG/2 ML Vial IVP PRN (21:40)
[2022-06-07] MEDS ORDERED: Acetaminophen 325 MG TAB PO PRN (21:40)
[2022-06-07] MEDS ORDERED: Ondansetron ODT 4 MG TAB PO PRN (21:40)
[2022-06-07 21:56] LABS: ALT (SGPT) 14 U/L (8-55); AST (SGOT) 12 U/L (5-34); Albumin 3.8 g/dL (3.5-5.0); Alkaline Phosphatase 105 U/L (40-110); Anion Gap 12 mmol/L (10-20); BUN (Urea Nitrogen) 7 mg/dL (7.0-18.7); Bilirubin, Total 0.3 mg/dL (0.2-1.2); Calc. Creatinine Clearance 0 mL/min (70-130); Calcium 9.4 mg/dL (7.8-10.44); Carbon Dioxide 24 mmol/L (22-29); Chloride 105 mmol/L (98-107); Estimated GFR 68; Globulin 2.8 g/dL (2.4-3.5); Glucose 128 mg/dL (70-105); Lipase 117 U/L (8-78); Magnesium 2.2 mg/dL (1.6-2.6); Potassium 3.2 mmol/L (3.5-5.1); Protein, Total 6.6 g/dL (6.0-8.3); Sodium 138 mmol/L (136-145)
[2022-06-07] MEDS ORDERED: Potassium Chloride 20 MEQ TAB PO SCH (22:02)
[2022-06-07 23:00] LABS: Lactic Acid 0.7 mmol/L (0.5-2.2)
[2022-06-07] MEDS ORDERED: cefTRIAXone\\ROCEPHIN 1 GM in Sodium Chloride 0.9% 100 ML IVPB SCH (23:00)
[2022-06-08] MEDS: Sodium Chloride 0.9% 1,000 ML IV SCH ×2 (00:55→08:57)
[2022-06-08 06:41] VITALS: BMI 40.6
[2022-06-08 06:47] LABS: Hemoglobin A1c 5.9 % (4.0-6.0)
[2022-06-08 06:51] LABS: Anion Gap 13 mmol/L (10-20); BUN (Urea Nitrogen) 6 mg/dL (7.0-18.7); Calc. Creatinine Clearance 124 mL/min (70-130); Carbon Dioxide 18 mmol/L (22-29); Chloride 109 mmol/L (98-107); Estimated GFR 78; Glucose 193 mg/dL (70-105); Potassium 3.3 mmol/L (3.5-5.1); Sodium 137 mmol/L (136-145)
[2022-06-08 07:18] LABS: #Eosinphils 0.3 thou/uL (0.0-0.7); #Lymphocytes 3.1 thou/uL (1.20-3.40); #Monocytes 0.7 thou/uL (0.11-0.59); #Neutrophils 5.7 thou/uL (1.40-6.50); %Basophils 0.3 % (0.0-1.0); %Eosinophils 2.9 % (0.0-10.0); %Lymphocytes 31.7 % (21.0-51.0); %Monocytes 6.9 % (0.0-10.0); %Neutrophils 58.2 % (42.0-75.0); Hemoglobin 11.5 g/dL (12.0-16.0); Mean Corpuscular HGB CONC 31.8 g/dL (32.0-36.0); Mean Corpuscular Hemoglobin 34.3 pg (27.0-31.0); Mean Platelet Volume 7.3 fL (7.4-10.4); Platelet Count 324 thou/uL (130-400); RBC Distribution Width 11.4 % (11.5-14.5); Red Blood Cell (RBC) Count 3.36 mill/uL (4.20-5.40); White Blood Cell (WBC) Count 9.7 thou/uL (4.8-10.8)
[2022-06-08] MEDS: Enoxaparin Sodium 40 MG/0.4 ML SYRINGE SC SCH (08:55)
[2022-06-08] MEDS: Insulin Glargine 30 UNITS/0.3 ML VIAL SC SCH ×2 (08:55→21:53)
[2022-06-08] MEDS: HumaLOG 300 UNITS/3 ML VIAL SC PRN (12:19)
[2022-06-08] MEDS ORDERED: Morphine 2 MG/ML VIAL SLOW IVP SCH (14:30)
[2022-06-08] MEDS: cefTRIAXone\\ROCEPHIN 2 GM in Sodium Chloride 0.9% 100 ML IVPB SCH (21:51)
[2022-06-08] MEDS: Atorvastatin Calcium 20 MG TAB PO SCH (21:52)
[2022-06-08] MEDS ORDERED: VANCOMYCIN 2 GRAM/500 ML BAG 2 GM in Premix Bag 1 BAG IVPB SCH (23:30)
[2022-06-08] MEDS: Zolpidem Tartrate 5 MG TAB PO PRN (23:32)
[2022-06-08] MEDS: HYDROcodone/Acetaminophen 5/325 mg Tablet PO PRN (23:32)
[2022-06-09] MEDS: HYDROcodone/Acetaminophen 5/325 mg Tablet PO PRN (05:28)
[2022-06-09] MEDS: HumaLOG 300 UNITS/3 ML VIAL SC PRN ×2 (06:08→12:44)
[2022-06-09 06:15] LABS: Band 1 % (5-11); Elliptocytes SLIGHT = 2-5 cells (100X) (0-1/hpf); Hemoglobin 10.2 g/dL (12.0-16.0); Hypochromia SLIGHT = 6-15 cells (100X) (0-5/hpf); Lymphocytes 12 % (21-51); MDiff Complete? YES; Macrocytosis SLIGHT = 6-15 cells (100X) (0-5/hpf); Mean Corpuscular HGB CONC 27.1 g/dL (32.0-36.0); Mean Platelet Volume 7.9 fL (7.4-10.4); Monocytes 7 % (0-10); Neutrophil 80 % (42-75); Ovalocytes SLIGHT = 2-5 cells (100X) (0-1/hpf); Platelet Count 244 thou/uL (130-400); Platelet Morphology Comment Appears Adequate; Polychromasia SLIGHT = 2-3 cells (100X) (0-2/hpf); RBC Distribution Width 11.5 % (11.5-14.5); Red Blood Cell (RBC) Count 3.51 mill/uL (4.20-5.40); White Blood Cell (WBC) Count 7.6 thou/uL (4.8-10.8)
[2022-06-09 06:24] LABS: Anion Gap 13 mmol/L (10-20); BUN (Urea Nitrogen) 4 mg/dL (7.0-18.7); Calc. Creatinine Clearance 136 mL/min (70-130); Calcium 9.1 mg/dL (7.8-10.44); Carbon Dioxide 21 mmol/L (22-29); Chloride 111 mmol/L (98-107); Estimated GFR 88; Glucose 165 mg/dL (70-105); Potassium 3.7 mmol/L (3.5-5.1); Sodium 141 mmol/L (136-145)
[2022-06-09] MEDS ORDERED: Vancomycin HCl 1.5 GM in Sodium Chloride 0.9% 250 ML 300 ML IVPB SCH (09:00)
[2022-06-09] MEDS: Insulin Glargine 30 UNITS/0.3 ML VIAL SC SCH ×2 (10:44→21:25)
[2022-06-09] MEDS: Enoxaparin Sodium 40 MG/0.4 ML SYRINGE SC SCH (10:46)
[2022-06-09] MEDS: VANCOMYCIN 1.25 GM/250 ML BAG 1.25 GM in Premix Bag 1 BAG IVPB SCH (11:00)
[2022-06-09] MEDS ORDERED: Promethazine HCl 25 MG in Sodium Chloride 0.9% 50 ML IVPB PRN (14:31)
[2022-06-09] MEDS: cefTRIAXone\\ROCEPHIN 2 GM in Sodium Chloride 0.9% 100 ML IVPB SCH (21:24)
[2022-06-09] MEDS: Atorvastatin Calcium 20 MG TAB PO SCH (21:25)
[2022-06-10] MEDS: VANCOMYCIN 1.25 GM/250 ML BAG 1.25 GM in Premix Bag 1 BAG IVPB SCH ×2 (00:34→12:20)
[2022-06-10] MEDS: HYDROcodone/Acetaminophen 5/325 mg Tablet PO PRN ×2 (05:26→12:43)
[2022-06-10 06:26] LABS: #Eosinphils 0.3 thou/uL (0.0-0.7); #Lymphocytes 1.9 thou/uL (1.20-3.40); #Monocytes 0.4 thou/uL (0.11-0.59); #Neutrophils 5.4 thou/uL (1.40-6.50); %Basophils 0.1 % (0.0-1.0); %Eosinophils 4.3 % (0.0-10.0); %Lymphocytes 23.9 % (21.0-51.0); %Monocytes 5.1 % (0.0-10.0); %Neutrophils 66.6 % (42.0-75.0); Hemoglobin 11.2 g/dL (12.0-16.0); Mean Corpuscular HGB CONC 32.4 g/dL (32.0-36.0); Mean Corpuscular Hemoglobin 34.7 pg (27.0-31.0); Mean Platelet Volume 6.8 fL (7.4-10.4); Platelet Count 360 thou/uL (130-400); RBC Distribution Width 11.4 % (11.5-14.5); Red Blood Cell (RBC) Count 3.22 mill/uL (4.20-5.40); White Blood Cell (WBC) Count 8.1 thou/uL (4.8-10.8)
[2022-06-10 06:51] LABS: Anion Gap 11 mmol/L (10-20); BUN (Urea Nitrogen) Less than 4 mg/dL (7.0-18.7); Calc. Creatinine Clearance 142 mL/min (70-130); Calcium 9.4 mg/dL (7.8-10.44); Carbon Dioxide 22 mmol/L (22-29); Chloride 111 mmol/L (98-107); Estimated GFR 92; Glucose 170 mg/dL (70-105); Potassium 3.2 mmol/L (3.5-5.1); Sodium 141 mmol/L (136-145)
[2022-06-10] MEDS: Enoxaparin Sodium 40 MG/0.4 ML SYRINGE SC SCH (09:01)
[2022-06-10] MEDS: Insulin Glargine 30 UNITS/0.3 ML VIAL SC SCH ×2 (09:02→20:15)
[2022-06-10] MEDS ORDERED: Potassium Chloride 20 MEQ TAB PO SCH (12:15)
[2022-06-10] MEDS: HumaLOG 300 UNITS/3 ML VIAL SC PRN (12:38)
[2022-06-10] MEDS: cefTRIAXone\\ROCEPHIN 2 GM in Sodium Chloride 0.9% 100 ML IVPB SCH (20:14)
[2022-06-10] MEDS: Atorvastatin Calcium 20 MG TAB PO SCH (20:15)
[2022-06-10] MEDS ORDERED: Multivit, Therapeutic 1 TAB PO SCH (21:00)
[2022-06-10] MEDS ORDERED: LURASIDONE HCL 60 MG PO SCH (21:00)
[2022-06-10] MEDS ORDERED: Cyanocobalamin (Vitamin B-12) 1,000 MCG TAB PO SCH (21:00)
[2022-06-10] MEDS ORDERED: Folic Acid 1 MG TAB PO SCH (21:00)
[2022-06-10] MEDS: Zolpidem Tartrate 5 MG TAB PO PRN (23:29)
[2022-06-11 00:02] LABS: Vancomycin, Trough 17.7 ug/mL
[2022-06-11] MEDS: VANCOMYCIN 1.25 GM/250 ML BAG 1.25 GM in Premix Bag 1 BAG IVPB SCH ×2 (00:23→11:08)
[2022-06-11 06:25] LABS: #Eosinphils 0.2 thou/uL (0.0-0.7); #Lymphocytes 2.1 thou/uL (1.20-3.40); #Monocytes 0.5 thou/uL (0.11-0.59); #Neutrophils 6.2 thou/uL (1.40-6.50); %Basophils 0.1 % (0.0-1.0); %Eosinophils 2.6 % (0.0-10.0); %Lymphocytes 23.1 % (21.0-51.0); %Monocytes 5.7 % (0.0-10.0); %Neutrophils 68.6 % (42.0-75.0); Hemoglobin 11.2 g/dL (12.0-16.0); Mean Corpuscular HGB CONC 32.5 g/dL (32.0-36.0); Platelet Count 367 thou/uL (130-400); RBC Distribution Width 11.4 % (11.5-14.5); Red Blood Cell (RBC) Count 3.21 mill/uL (4.20-5.40)
[2022-06-11 06:39] LABS: ALT (SGPT) 12 U/L (8-55); AST (SGOT) 10 U/L (5-34); Albumin 3.4 g/dL (3.5-5.0); Alkaline Phosphatase 125 U/L (40-110); Anion Gap 10 mmol/L (10-20); BUN (Urea Nitrogen) Less than 4 mg/dL (7.0-18.7); Bilirubin, Total 0.5 mg/dL (0.2-1.2); CRP (Inflammatory) 1.07 mg/dL (= or < 0.5); Calc. Creatinine Clearance 138 mL/min (70-130); Calcium 9.5 mg/dL (7.8-10.44); Carbon Dioxide 24 mmol/L (22-29); Chloride 112 mmol/L (98-107); Estimated GFR 89; Globulin 2.6 g/dL (2.4-3.5); Glucose 183 mg/dL (70-105); Magnesium 1.8 mg/dL (1.6-2.6); Phosphorus 3.1 mg/dL (2.3-4.7); Potassium 3.4 mmol/L (3.5-5.1); Sodium 143 mmol/L (136-145)
[2022-06-11] MEDS ORDERED: Electrolyte Replacement Protocol 1 EACH FS SCH (08:45)
[2022-06-11] MEDS ORDERED: Benztropine 1 MG TAB PO SCH ×2 (09:00→13:00)
[2022-06-11] MEDS: Enoxaparin Sodium 40 MG/0.4 ML SYRINGE SC SCH (09:22)
[2022-06-11] MEDS: Insulin Glargine 30 UNITS/0.3 ML VIAL SC SCH (09:22)
[2022-06-11] MEDS ORDERED: Potassium Chloride 20 MEQ TAB PO SCH (11:00)
[2022-06-11] MEDS ORDERED: Magnesium 2 GM/50 ML(in water) 2 GM in Premix Bag 1 BAG IVPB SCH (11:00)
[2022-06-11] MEDS: HumaLOG 300 UNITS/3 ML VIAL SC PRN ×2 (11:13→16:44)
[2022-06-11] MEDS ORDERED: cefTRIAXone\\ROCEPHIN 2 GM in Sodium Chloride 0.9% 100 ML IVPB SCH (16:00)
[2022-06-11 16:45] VITALS: BP 134/90; TEMP 98.1
[2022-06-11] MEDS ORDERED: LURASIDONE HCL 60 MG PO SCH (17:00)
== END 2022-06-11 18:30 | disposition home or self-care (01) | DRG 871 ==
LOC: ERS 18:52 → SJJU 21:11
PROVIDERS: ADMIT Student in an Organized Health Care Education/Training Program; ATTEND Internal Medicine
PROC: 3E03329 Introduction of Other Anti-infective into Peripheral Vein, Percutaneous Approach (ICD-10-PCS; principal; 2022-06-07)
PROC: 05H533Z Insertion of Infusion Device into Right Subclavian Vein, Percutaneous Approach (ICD-10-PCS; 2022-06-08)
PROC: 3E03329 Introduction of Other Anti-infective into Peripheral Vein, Percutaneous Approach (ICD-10-PCS; 2022-06-08)
PROC: 02HV33Z Insertion of Infusion Device into Superior Vena Cava, Percutaneous Approach (ICD-10-PCS; 2022-06-10)
PROC: B5181ZA Fluoroscopy of Superior Vena Cava using Low Osmolar Contrast, Guidance (ICD-10-PCS; 2022-06-10)
PROC: B548ZZA Ultrasonography of Superior Vena Cava, Guidance (ICD-10-PCS; 2022-06-10)
DX: A41.51 Sepsis due to Escherichia coli [E. coli] (principal); G93.41 Metabolic encephalopathy; E87.2 Acidosis; Z68.41 Body mass index [BMI] 40.0-44.9, adult; N12 Tubulo-interstitial nephritis, not specified as acute or chronic; R65.20 Severe sepsis without septic shock; Z20.822 Contact with and (suspected) exposure to COVID-19; E87.6 Hypokalemia; F31.9 Bipolar disorder, unspecified; M79.7 Fibromyalgia; E66.01 Morbid (severe) obesity due to excess calories; K21.9 Gastro-esophageal reflux disease without esophagitis; M54.30 Sciatica, unspecified side; E78.00 Pure hypercholesterolemia, unspecified; G89.4 Chronic pain syndrome; I08.1 Rheumatic disorders of both mitral and tricuspid valves; E11.9 Type 2 diabetes mellitus without complications; M32.9 Systemic lupus erythematosus, unspecified; F41.9 Anxiety disorder, unspecified; F43.10 Post-traumatic stress disorder, unspecified; E83.42 Hypomagnesemia; Z79.4 Long term (current) use of insulin; Z88.8 Allergy status to other drugs, medicaments and biological substances; Z88.1 Allergy status to other antibiotic agents; Z79.899 Other long term (current) drug therapy; Z90.710 Acquired absence of both cervix and uterus; Z90.49 Acquired absence of other specified parts of digestive tract; Z83.3 Family history of diabetes mellitus; Z88.6 Allergy status to analgesic agent; Z98.51 Tubal ligation status
CPT/HCPCS: 36415; 36416; 36569; 70450; 71045; 80048; 80053; 80202; 81003; 81015; 83036; 83605; 83690; 83735; 84100; 84443; 84484; 85025; 86140; 87040; 87077; 87086; 87149; 87186; 93005; 93306; C1751; J0696; J1650; J1815; J2270; J2550; J3370; J3475; J3490; J7050; U0003; U0005

== ENCOUNTER 2022-06-13 16:48 | Emergency (ER) | payer MEDICAID, SELFPAY ==
[2022-06-13 17:32] LABS: #Basophils 0.1 thou/uL (0.0-0.2); #Eosinphils 0.4 thou/uL (0.0-0.7); #Monocytes 0.4 thou/uL (0.11-0.59); #Neutrophils 6.1 thou/uL (1.40-6.50); %Eosinophils 3.5 % (0.0-10.0); %Lymphocytes 36.4 % (21.0-51.0); %Monocytes 3.7 % (0.0-10.0); %Neutrophils 55.5 % (42.0-75.0); Hemoglobin 12.3 g/dL (12.0-16.0); Mean Corpuscular HGB CONC 32.3 g/dL (32.0-36.0); Mean Corpuscular Hemoglobin 34.5 pg (27.0-31.0); Mean Platelet Volume 6.9 fL (7.4-10.4); Platelet Count 382 thou/uL (130-400); RBC Distribution Width 11.5 % (11.5-14.5); Red Blood Cell (RBC) Count 3.56 mill/uL (4.20-5.40); White Blood Cell (WBC) Count 11.1 thou/uL (4.8-10.8)
[2022-06-13 17:53] LABS: ALT (SGPT) 11 U/L (8-55); AST (SGOT) 8 U/L (5-34); Albumin 4.1 g/dL (3.5-5.0); Alkaline Phosphatase 127 U/L (40-110); Anion Gap 13 mmol/L (10-20); BUN (Urea Nitrogen) Less than 4 mg/dL (7.0-18.7); Bilirubin, Total 0.5 mg/dL (0.2-1.2); Calc. Creatinine Clearance 0 mL/min (70-130); Calcium 9.9 mg/dL (7.8-10.44); Carbon Dioxide 24 mmol/L (22-29); Chloride 103 mmol/L (98-107); Estimated GFR 66; Globulin 2.6 g/dL (2.4-3.5); Glucose 217 mg/dL (70-105); Potassium 3.6 mmol/L (3.5-5.1); Protein, Total 6.7 g/dL (6.0-8.3); Sodium 136 mmol/L (136-145)
[2022-06-13 18:15] LABS: INR-International Normal Ratio 1.1; PTT 24.7 sec (22.9-36.1); Prothrombin Time 14.7 sec (12.0-14.7)
== END 2022-06-13 20:14 | disposition home or self-care (01) ==
LOC: ERS 16:48
DX: R53.1 Weakness (principal); E11.9 Type 2 diabetes mellitus without complications; E78.00 Pure hypercholesterolemia, unspecified; Z79.4 Long term (current) use of insulin; Z79.899 Other long term (current) drug therapy
CPT/HCPCS: 36415; 80053; 83605; 85025; 85610; 85730; 87040; 93005

== ENCOUNTER 2022-11-16 12:11 | Emergency (ER) | payer BC, OTHER ==
[2022-11-16 13:03] LABS: #Eosinphils 0.4 thou/uL (0.0-0.7); #Lymphocytes 3.3 thou/uL (1.20-3.40); #Monocytes 0.3 thou/uL (0.11-0.59); #Neutrophils 6.6 thou/uL (1.40-6.50); %Basophils 0.2 % (0.0-1.0); %Eosinophils 3.9 % (0.0-10.0); %Lymphocytes 31.1 % (21.0-51.0); %Neutrophils 61.8 % (42.0-75.0); Hemoglobin 13.6 g/dL (12.0-16.0); Mean Corpuscular Hemoglobin 34.6 pg (27.0-31.0); Mean Platelet Volume 7.4 fL (7.4-10.4); Platelet Count 362 10x3/uL (130-400); Red Blood Cell (RBC) Count 3.92 mill/uL (4.20-5.40); White Blood Cell (WBC) Count 10.6 10x3/uL (4.8-10.8)
[2022-11-16 13:20] LABS: ALT (SGPT) 13 U/L (8-55); AST (SGOT) 11 U/L (5-34); Albumin 4.1 g/dL (3.5-5.0); Alkaline Phosphatase 192 U/L (40-110); Anion Gap 13 mmol/L (10-20); BUN (Urea Nitrogen) 9 mg/dL (7.0-18.7); Bilirubin, Total 0.3 mg/dL (0.2-1.2); Calc. Creatinine Clearance 0 mL/min (70-130); Calcium 9.6 mg/dL (7.8-10.44); Carbon Dioxide 22 mmol/L (22-29); Chloride 107 mmol/L (98-107); Estimated GFR 73; Globulin 3.4 g/dL (2.4-3.5); Glucose 309 mg/dL (70-105); Potassium 3.8 mmol/L (3.5-5.1); Protein, Total 7.5 g/dL (6.0-8.3); Sodium 138 mmol/L (136-145)
[2022-11-16 13:21] LABS: Bacteria/HPF 1+ HPF (None Seen); Bilirubin Negative (Negative); Blood, Urine Negative (Negative); Clarity Turbid (Clear); Glucose, Urine (Dipstick) >=1000 mg/dL (Negative); Ketone, Urine Negative (Negative); Leukocyte 500 Leu/uL (Negative); Nitrite Negative (Negative); Protein, Urine (Dipstick) Negative (Neg-Trace); RBC/HPF 0-3 HPF (0-3); Specific Gravity, Urine 1.003 (1.002-1.036); Squamous Epithelial None Seen HPF (0-3); Urobilinogen Normal mg/dL (Less than 2); WBC/HPF Greater than 50 HPF (0-3); pH, Urine 7.5 (5.0-9.0)
[2022-11-16 13:23] LABS: Actual Bicarbonate (HCO3v) 26 mEq/L (22-28); Base Excess -0.1 mEq/L (-2.0 to +3.0); Chloride (VBG) 106 mmol/L (98-106); Hemoglobin (Hb) 13.2 g/dL (11.7-16.0); Sodium 140.6 mmol/L (133-146); pH (venous) 7.36 (7.32-7.43)
[2022-11-16] MEDS ORDERED: cefTRIAXone\\ROCEPHIN 2 GM VIAL ONE (14:45)
[2022-11-16] MEDS ORDERED: Promethazine HCl 25 MG in Sodium Chloride 0.9% 50 ML IVPB SCH (16:00)
== END 2022-11-16 18:17 | disposition home or self-care (01) ==
LOC: ERS 12:11
DX: T38.3X1A Poisoning by insulin and oral hypoglycemic [antidiabetic] drugs, accidental (unintentional), initial encounter (principal); N39.0 Urinary tract infection, site not specified; E11.9 Type 2 diabetes mellitus without complications; E78.00 Pure hypercholesterolemia, unspecified; Z77.22 Contact with and (suspected) exposure to environmental tobacco smoke (acute) (chronic); Z79.4 Long term (current) use of insulin
CPT/HCPCS: 36415; 36416; 80053; 81003; 81015; 82010; 82805; 85025; 87077; 87086; 87186; 93005; 96365; 96367; J0696; J2550

== ENCOUNTER 2022-11-17 18:25 | Emergency (ER) | payer OTHER ==
[2022-11-17 20:08] LABS: #Eosinphils 0.5 thou/uL (0.0-0.7); #Lymphocytes 3.6 thou/uL (1.20-3.40); #Monocytes 0.4 thou/uL (0.11-0.59); #Neutrophils 4.7 thou/uL (1.40-6.50); %Basophils 0.4 % (0.0-1.0); %Eosinophils 5.4 % (0.0-10.0); %Monocytes 4.2 % (0.0-10.0); Hemoglobin 12.8 g/dL (12.0-16.0); Mean Corpuscular HGB CONC 34.2 g/dL (32.0-36.0); Mean Corpuscular Hemoglobin 35.6 pg (27.0-31.0); Mean Platelet Volume 7.4 fL (7.4-10.4); Platelet Count 334 10x3/uL (130-400); RBC Distribution Width 10.9 % (11.5-14.5); White Blood Cell (WBC) Count 9.1 10x3/uL (4.8-10.8)
[2022-11-17 20:39] LABS: ALT (SGPT) 11 U/L (8-55); AST (SGOT) 10 U/L (5-34); Alkaline Phosphatase 166 U/L (40-110); Anion Gap 15 mmol/L (10-20); BUN (Urea Nitrogen) 9 mg/dL (7.0-18.7); Bilirubin, Total 0.4 mg/dL (0.2-1.2); CK (CPK) 32 U/L (29-168); Calc. Creatinine Clearance 0 mL/min (70-130); Calcium 9.4 mg/dL (7.8-10.44); Carbon Dioxide 25 mmol/L (22-29); Chloride 104 mmol/L (98-107); Estimated GFR 62; Globulin 2.7 g/dL (2.4-3.5); Lipase 24 U/L (8-78); Protein, Total 6.7 g/dL (6.0-8.3)
[2022-11-17 20:45] LABS: Sodium 140 mmol/L (136-145)
[2022-11-17 20:49] LABS: Glucose 418 mg/dL (70-105)
[2022-11-17 20:50] LABS: SARS-CoV-2 NAA Rapid Test Not Detected (NotDetected)
== END 2022-11-17 21:22 | disposition home or self-care (01) ==
LOC: ERS 18:25
DX: E11.65 Type 2 diabetes mellitus with hyperglycemia (principal); E78.00 Pure hypercholesterolemia, unspecified; Z20.822 Contact with and (suspected) exposure to COVID-19; Z77.22 Contact with and (suspected) exposure to environmental tobacco smoke (acute) (chronic); Z79.4 Long term (current) use of insulin
CPT/HCPCS: 36415; 36416; 71045; 80053; 82010; 82550; 83605; 83690; 84484; 85025; 87040; 93005; 96360

== ENCOUNTER 2023-01-20 15:17 | Emergency (ER) | payer OTHER, SELFPAY | END 2023-01-20 17:38 | disposition left against medical advice (07) | LOC: ERS 15:17 | DX: Z53.21 Procedure and treatment not carried out due to patient leaving prior to being seen by health care provider (principal) | CPT/HCPCS: 36416; 93005 ==

== ENCOUNTER 2023-01-22 17:57 | Inpatient (IN) | payer OTHER ==
[2023-01-22 19:03] LABS: #Eosinphils 0.5 thou/uL (0.0-0.7); #Lymphocytes 2.8 thou/uL (1.20-3.40); #Monocytes 0.3 thou/uL (0.11-0.59); #Neutrophils 4.6 thou/uL (1.40-6.50); %Basophils 0.1 % (0.0-1.0); %Eosinophils 5.9 % (0.0-10.0); %Lymphocytes 34.5 % (21.0-51.0); %Neutrophils 55.5 % (42.0-75.0); Hemoglobin 11.5 g/dL (12.0-16.0); Mean Corpuscular HGB CONC 34.1 g/dL (32.0-36.0); Mean Corpuscular Hemoglobin 35.1 pg (27.0-31.0); Mean Platelet Volume 6.6 fL (7.4-10.4); Platelet Count 319 10x3/uL (130-400); RBC Distribution Width 11.7 % (11.5-14.5); Red Blood Cell (RBC) Count 3.26 mill/uL (4.20-5.40); White Blood Cell (WBC) Count 8.2 10x3/uL (4.8-10.8)
[2023-01-22 19:45] LABS: ALT (SGPT) Less than 7 U/L (8-55); AST (SGOT) 9 U/L (5-34); Albumin 3.7 g/dL (3.5-5.0); Alkaline Phosphatase 119 U/L (40-110); Anion Gap 13 mmol/L (10-20); BUN (Urea Nitrogen) 14 mg/dL (7.0-18.7); Bilirubin, Total 0.2 mg/dL (0.2-1.2); Calc. Creatinine Clearance 0 mL/min (70-130); Calcium 9.2 mg/dL (7.8-10.44); Carbon Dioxide 24 mmol/L (22-29); Chloride 110 mmol/L (98-107); Estimated GFR 82; Globulin 2.5 g/dL (2.4-3.5); Glucose 64 mg/dL (70-105); Potassium 3.5 mmol/L (3.5-5.1); Protein, Total 6.2 g/dL (6.0-8.3); Sodium 143 mmol/L (136-145)
[2023-01-22 19:48] LABS: Bilirubin Negative (Negative); Blood, Urine Negative (Negative); Clarity Clear (Clear); Glucose, Urine (Dipstick) Normal (Negative); Ketone, Urine Negative (Negative); Leukocyte Negative Leu/uL (Negative); Nitrite Negative (Negative); Protein, Urine (Dipstick) Negative (Neg-Trace); Specific Gravity, Urine 1.005 (1.002-1.036); Urobilinogen Normal mg/dL (Less than 2)
[2023-01-22 20:55] LABS: SARS-CoV-2 NAA Rapid Test Not Detected (NotDetected)
[2023-01-22] MEDS ORDERED: Sodium Chloride 77 MEQ, Potassium Chloride 20 MEQ in Dextrose 10% in Water 1,000 ML IV SCH (21:00)
[2023-01-22] MEDS ORDERED: Ondansetron ODT 4 MG TAB PO PRN (22:06)
[2023-01-22] MEDS ORDERED: Dextrose 5% in Water 1,000 ML IV PRN (22:06)
[2023-01-22] MEDS ORDERED: Ondansetron PF 4 MG/2 ML Vial IVP PRN (22:06)
[2023-01-22] MEDS ORDERED: Acetaminophen 325 MG TAB PO PRN (22:06)
[2023-01-22] MEDS ORDERED: Dextrose 50% Abboject 50 ML SYRINGE SLOW IVP PRN (22:06)
[2023-01-22] MEDS ORDERED: Cyclobenzaprine 10 MG TAB PO PRN (22:49)
[2023-01-22] MEDS ORDERED: diphenhydrAMINE 25 MG CAP PO SCH (23:00)
[2023-01-22] MEDS ORDERED: Dextrose 5 %-0.45 % NaCl 1,000 ML IV SCH (23:00)
[2023-01-23 00:29] LABS: Hemoglobin A1c 6.1 % (4.0-6.0)
[2023-01-23 01:24] VITALS: BMI 43.7
[2023-01-23] MEDS ORDERED: Benztropine 1 MG TAB PO SCH (01:30)
[2023-01-23] MEDS ORDERED: Gabapentin 400 MG CAP PO SCH (01:45)
[2023-01-23] MEDS: Gabapentin 400 MG CAP PO SCH ×4 (09:13→20:58)
[2023-01-23] MEDS: Benztropine 1 MG TAB PO SCH ×2 (09:13→20:59)
[2023-01-23] MEDS: Insulin Glargine 30 UNITS/0.3 ML VIAL SC SCH ×2 (09:14→20:59)
[2023-01-23 10:15] LABS: #Eosinphils 0.4 thou/uL (0.0-0.7); #Lymphocytes 2.9 thou/uL (1.20-3.40); #Monocytes 0.4 thou/uL (0.11-0.59); #Neutrophils 4.8 thou/uL (1.40-6.50); %Basophils 0.4 % (0.0-1.0); %Lymphocytes 33.7 % (21.0-51.0); %Monocytes 4.3 % (0.0-10.0); %Neutrophils 56.6 % (42.0-75.0); Hemoglobin 10.8 g/dL (12.0-16.0); Mean Corpuscular HGB CONC 31.8 g/dL (32.0-36.0); Mean Platelet Volume 6.8 fL (7.4-10.4); Platelet Count 331 10x3/uL (130-400); RBC Distribution Width 11.7 % (11.5-14.5); Red Blood Cell (RBC) Count 3.27 mill/uL (4.20-5.40); White Blood Cell (WBC) Count 8.5 10x3/uL (4.8-10.8)
[2023-01-23 10:39] LABS: Alcohol Less than 10 mg/dL (Less than 10); Anion Gap 10 mmol/L (10-20); BUN (Urea Nitrogen) 13 mg/dL (7.0-18.7); Calc. Creatinine Clearance 142 mL/min (70-130); Calcium 9.1 mg/dL (7.8-10.44); Carbon Dioxide 25 mmol/L (22-29); Chloride 110 mmol/L (98-107); Estimated GFR 85; Glucose 156 mg/dL (70-105); Sodium 141 mmol/L (136-145)
[2023-01-23 12:50] LABS: Amphetamine Not Detected (NotDetected); Barbiturates Screen Not Detected (NotDetected); Benzodiazepine Screen Not Detected (NotDetected); Cocaine Metabolite Screen Not Detected (NotDetected); Methadone Not Detected (NotDetected); Methamphetamine Not Detected (NotDetected); Opiate Screen Not Detected (NotDetected); Oxycodone Screen Not Detected (NotDetected); Phencyclidine (PCP) Not Detected (NotDetected); THC/Cannabinoid Screen Not Detected (NotDetected); Tricyclic Screen Not Detected (NotDetected)
[2023-01-23] MEDS ORDERED: Lurasidone 20 MG TABLET PO SCH (17:00)
[2023-01-23] MEDS: HumaLOG 300 UNITS/3 ML VIAL SC PRN (18:01)
[2023-01-23] MEDS ORDERED: Atorvastatin Calcium 20 MG TAB PO SCH (21:00)
[2023-01-23] MEDS ORDERED: diphenhydrAMINE 50 MG CAP PO SCH (23:59)
[2023-01-24] MEDS ORDERED: VANCOMYCIN 2 GRAM/500 ML BAG 2 GM in Premix Bag 1 BAG IVPB SCH (01:15)
[2023-01-24] MEDS: HumaLOG 300 UNITS/3 ML VIAL SC PRN (06:04)
[2023-01-24 08:57] LABS: #Eosinphils 0.4 thou/uL (0.0-0.7); #Lymphocytes 2.9 thou/uL (1.20-3.40); #Monocytes 0.5 thou/uL (0.11-0.59); #Neutrophils 5.1 thou/uL (1.40-6.50); %Basophils 0.3 % (0.0-1.0); %Lymphocytes 33.1 % (21.0-51.0); %Monocytes 5.6 % (0.0-10.0); Hemoglobin 10.9 g/dL (12.0-16.0); Mean Corpuscular HGB CONC 32.2 g/dL (32.0-36.0); Mean Corpuscular Hemoglobin 33.3 pg (27.0-31.0); Mean Platelet Volume 6.8 fL (7.4-10.4); Platelet Count 302 10x3/uL (130-400); RBC Distribution Width 11.7 % (11.5-14.5); Red Blood Cell (RBC) Count 3.27 mill/uL (4.20-5.40); White Blood Cell (WBC) Count 8.9 10x3/uL (4.8-10.8)
[2023-01-24 09:07] LABS: Anion Gap 11 mmol/L (10-20); BUN (Urea Nitrogen) 12 mg/dL (7.0-18.7); Calc. Creatinine Clearance 143 mL/min (70-130); Calcium 9.1 mg/dL (7.8-10.44); Carbon Dioxide 23 mmol/L (22-29); Chloride 110 mmol/L (98-107); Estimated GFR 86; Glucose 158 mg/dL (70-105); Potassium 3.9 mmol/L (3.5-5.1); Sodium 140 mmol/L (136-145)
[2023-01-24] MEDS: Benztropine 1 MG TAB PO SCH (09:18)
[2023-01-24] MEDS: Gabapentin 400 MG CAP PO SCH (09:19)
[2023-01-24] MEDS: Insulin Glargine 30 UNITS/0.3 ML VIAL SC SCH (09:19)
[2023-01-24 12:32] VITALS: BP 139/71; TEMP 98
[2023-01-24] MEDS ORDERED: VANCOMYCIN 1.25 GM/250 ML BAG 1.25 GM in Premix Bag 1 BAG IVPB SCH (14:00)
== END 2023-01-24 15:00 | disposition home or self-care (01) | DRG 638 ==
LOC: ERS 17:57 → 2NO 22:05
PROVIDERS: ADMIT Student in an Organized Health Care Education/Training Program; ATTEND Internal Medicine
PROC: 06HY33Z Insertion of Infusion Device into Lower Vein, Percutaneous Approach (ICD-10-PCS; principal; 2023-01-22)
DX: E11.649 Type 2 diabetes mellitus with hypoglycemia without coma (principal); Z68.41 Body mass index [BMI] 40.0-44.9, adult; F31.9 Bipolar disorder, unspecified; E78.5 Hyperlipidemia, unspecified; M79.7 Fibromyalgia; F41.9 Anxiety disorder, unspecified; Z20.822 Contact with and (suspected) exposure to COVID-19; E66.01 Morbid (severe) obesity due to excess calories; K21.9 Gastro-esophageal reflux disease without esophagitis; Z90.710 Acquired absence of both cervix and uterus; Z90.49 Acquired absence of other specified parts of digestive tract; Z88.8 Allergy status to other drugs, medicaments and biological substances; Z79.4 Long term (current) use of insulin; Z79.899 Other long term (current) drug therapy; Z98.890 Other specified postprocedural states
CPT/HCPCS: 36415; 36416; 70450; 71045; 80048; 80053; 80178; 80306; 80307; 81003; 83036; 83605; 84443; 84484; 85025; 87040; 87149; 93005; J1650; J1815; J3370; J7042

== ENCOUNTER 2023-07-19 01:00 | Emergency (ER) | payer OTHER ==
[2023-07-19 01:58] LABS: #Eosinphils 0.1 thou/uL (0.0-0.7); #Monocytes 0.4 thou/uL (0.11-0.59); #Neutrophils 6.5 thou/uL (1.40-6.50); %Basophils 0.3 % (0.0-1.0); %Eosinophils 1.2 % (0.0-10.0); %Lymphocytes 32.1 % (21.0-51.0); %Monocytes 4.1 % (0.0-10.0); Hematocrit 41.7 % (36.0-47.0); Hemoglobin 14.4 g/dL (12.0-16.0); Mean Corpuscular HGB CONC 34.5 g/dL (32.0-36.0); Mean Corpuscular Hemoglobin 31.9 pg (27.0-31.0); Mean Corpuscular Volume 92.3 fl (78.0-98.0); Mean Platelet Volume 9.7 fL (7.4-10.4); Platelet Count 401 10x3/uL (130-400); RBC Distribution Width 12.1 % (11.5-14.5); Red Blood Cell (RBC) Count 4.52 mill/uL (4.20-5.40); White Blood Cell (WBC) Count 10.4 10x3/uL (4.8-10.8)
[2023-07-19 02:13] LABS: Bacteria/HPF 4+ HPF (None Seen); Bilirubin Negative (Negative); Blood, Urine 3+ (Negative); CAUTI Indications for Culture Pelvic or flank pain; Clarity Turbid (Clear); Glucose, Urine (Dipstick) 50 mg/dL (Negative); Ketone, Urine Trace mg/dL (Negative); Leukocyte 250 Leu/uL (Negative); Nitrite Negative (Negative); Protein, Urine (Dipstick) 100 mg/dL (Neg-Trace); RBC/HPF Greater than 50 HPF (0-3); Specific Gravity, Urine 1.026 (1.002-1.036); Urobilinogen Normal mg/dL (Less than 2); WBC/HPF 21-50 HPF (0-3)
[2023-07-19 02:19] LABS: Urine Culture Reflex Yes Yes
[2023-07-19 02:24] LABS: ALT (SGPT) 22 U/L (8-55); AST (SGOT) 22 U/L (5-34); Albumin 4.5 g/dL (3.5-5.0); Alkaline Phosphatase 158 U/L (40-110); Anion Gap 17 mmol/L (10-20); BUN (Urea Nitrogen) 10 mg/dL (7.0-18.7); Bilirubin, Total 0.5 mg/dL (0.2-1.2); Calc. Creatinine Clearance 0 mL/min (70-130); Calcium 10.4 mg/dL (7.8-10.44); Carbon Dioxide 20 mmol/L (22-29); Chloride 101 mmol/L (98-107); Estimated GFR 64; Globulin 3.8 g/dL (2.4-3.5); Glucose 174 mg/dL (70-105); Potassium 3.4 mmol/L (3.5-5.1); Protein, Total 8.3 g/dL (6.0-8.3); Sodium 135 mmol/L (136-145)
[2023-07-19] MEDS ORDERED: Promethazine HCl 12.5 MG in Sodium Chloride 0.9% 50 ML IVPB SCH (05:00)
[2023-07-19] MEDS ORDERED: Promethazine HCl 25 MG/ML VIAL IM SCH (05:00)
[2023-07-19] MEDS ORDERED: fentaNYL 50 mcg/mL 1 mL Vial ONE (05:05)
[2023-07-19] MEDS ORDERED: Nitrofurantoin Monohyd/M-Cryst 100 MG CAP PO SCH (07:30)
== END 2023-07-19 07:04 | disposition home or self-care (01) ==
LOC: ERS 01:00
DX: N39.0 Urinary tract infection, site not specified (principal); E11.9 Type 2 diabetes mellitus without complications; E78.5 Hyperlipidemia, unspecified; E03.9 Hypothyroidism, unspecified; Z79.4 Long term (current) use of insulin; Z79.899 Other long term (current) drug therapy
CPT/HCPCS: 36415; 36416; 74176; 80053; 81001; 82010; 85025; 87086; 96372; J2550; J3010

== ENCOUNTER 2023-09-11 20:06 | Observation (INO) | payer OTHER ==
[2023-09-11 21:03] LABS: Actual Bicarbonate (HCO3v) 20.8 mEq/L (22-28); Analyzer IN Cardio ER; Calcium, Ionized (venous) 1.07 mmol/L (1.16-1.32); Chloride (VBG) 99 mmol/L (98-106); Hematocrit-VBG 53 % (36.0-47.0); Hemoglobin (Hb) 17.9 g/dL (11.7-16.0); Potassium (VBG) 4.63 mmol/L (3.70-5.30); Sodium 139 mmol/L (133-146); pH (venous) 7.361 (7.32-7.43)
[2023-09-11 21:07] LABS: #Eosinphils 0.2 thou/uL (0.0-0.7); #Monocytes 0.4 thou/uL (0.11-0.59); #Neutrophils 2.1 thou/uL (1.40-6.50); %Basophils 0.7 % (0.0-1.0); %Eosinophils 3.7 % (0.0-10.0); %Lymphocytes 49.9 % (21.0-51.0); %Monocytes 7.2 % (0.0-10.0); %Neutrophils 38.3 % (42.0-75.0); Hematocrit 52.2 % (36.0-47.0); Hemoglobin 16.9 g/dL (12.0-16.0); Mean Corpuscular HGB CONC 32.4 g/dL (32.0-36.0); Mean Corpuscular Hemoglobin 31.3 pg (27.0-31.0); Mean Corpuscular Volume 96.7 fl (78.0-98.0); Mean Platelet Volume 10.4 fL (7.4-10.4); Platelet Count 276 10x3/uL (130-400); RBC Distribution Width 12.5 % (11.5-14.5); White Blood Cell (WBC) Count 5.5 10x3/uL (4.8-10.8)
[2023-09-11 21:45] LABS: Phosphorus 3.7 mg/dL (2.3-4.7)
[2023-09-11 21:48] LABS: ALT (SGPT) 28 U/L (8-55); AST (SGOT) 38 U/L (5-34); Alkaline Phosphatase 154 U/L (40-110); Anion Gap 23 mmol/L (10-20); BUN (Urea Nitrogen) 9 mg/dL (9.8-20.1); Bilirubin, Total 0.4 mg/dL (0.2-1.2); Calc. Creatinine Clearance 0 mL/min (70-130); Calcium 10.1 mg/dL (7.8-10.44); Carbon Dioxide 18 mmol/L (22-29); Chloride 99 mmol/L (98-107); Estimated GFR 37; Globulin 4.2 g/dL (2.4-3.5); Glucose 439 mg/dL (70-105); Magnesium 1.8 mg/dL (1.6-2.6); Potassium 5.1 mmol/L (3.5-5.1); Protein, Total 9.2 g/dL (6.0-8.3); Sodium 135 mmol/L (136-145)
[2023-09-12 01:30] LABS: SARS-CoV-2 NAA Rapid Test Not Detected (NotDetected)
[2023-09-12 02:22] LABS: Troponin I Less than 0.010 ng/mL (< 0.028)
[2023-09-12] MEDS ORDERED: Promethazine HCl 12.5 MG in Sodium Chloride 0.9% 50 ML IVPB PRN (04:19)
[2023-09-12 04:25] LABS: Bacteria/HPF None Seen HPF (None Seen); Bilirubin Negative (Negative); Blood, Urine Negative (Negative); CAUTI Indications for Culture Pelvic or flank pain; Clarity Clear (Clear); Glucose, Urine (Dipstick) Greater than 1000 mg/dL (Negative); Ketone, Urine 20 mg/dL (Negative); Leukocyte Negative Leu/uL (Negative); Nitrite 2+ (Negative); Protein, Urine (Dipstick) Negative (Neg-Trace); Squamous Epithelial 0-3 HPF (0-3); Urobilinogen Normal mg/dL (Less than 2); WBC/HPF 0-3 HPF (0-3); pH, Urine 5.5 (5.0-9.0)
[2023-09-12 04:26] LABS: RBC/HPF 0-3 HPF (0-3)
[2023-09-12 04:27] LABS: Urine Culture Reflex No No
[2023-09-12 04:29] LABS: Specific Gravity, Urine 1.053 (1.002-1.036)
[2023-09-12] MEDS ORDERED: Promethazine 25 MG TAB PO PRN (04:35)
[2023-09-12 04:44] LABS: Anion Gap 17 mmol/L (10-20); BUN (Urea Nitrogen) 9 mg/dL (9.8-20.1); Calc. Creatinine Clearance 0 mL/min (70-130); Calcium 8.8 mg/dL (7.8-10.44); Carbon Dioxide 23 mmol/L (22-29); Chloride 100 mmol/L (98-107); Estimated GFR 53; Glucose 380 mg/dL (70-105); Potassium 3.6 mmol/L (3.5-5.1); Sodium 136 mmol/L (136-145)
[2023-09-12] MEDS ORDERED: Glucagon 1 MG/ML KIT IM PRN (05:28)
[2023-09-12] MEDS ORDERED: HumaLOG 300 UNITS/3 ML VIAL SC PRN (05:28)
[2023-09-12] MEDS ORDERED: Dextrose 50% Abboject 50 ML SYRINGE SLOW IVP PRN (05:28)
[2023-09-12] MEDS ORDERED: Dextrose 5% in Water 1,000 ML IV PRN (05:28)
[2023-09-12] MEDS: Insulin Glargine 30 UNITS/0.3 ML VIAL SC SCH (09:46)
[2023-09-12] MEDS: Sodium Chloride 0.9% 1,000 ML IV SCH ×2 (09:47→20:04)
[2023-09-12] MEDS: Oseltamivir 75 MG CAP PO SCH ×2 (09:47→20:03)
[2023-09-12 09:51] VITALS: BMI 39.8
[2023-09-12] MEDS: Acetaminophen 325 MG TAB PO PRN ×2 (13:00→20:50)
[2023-09-12] MEDS: HumaLOG 300 UNITS/3 ML VIAL SC PRN ×2 (13:07→18:19)
[2023-09-12] MEDS ORDERED: Iopamidol 370 76% 100 ML VIAL ONE (13:20)
[2023-09-12] MEDS ORDERED: Zolpidem Tartrate 5 MG TAB PO PRN (19:45)
[2023-09-12] MEDS ORDERED: Lurasidone 40 MG TAB PO SCH (21:00)
[2023-09-12] MEDS ORDERED: Lurasidone 20 MG TABLET PO SCH (21:00)
[2023-09-13 00:45] VITALS: TEMP 98.8
[2023-09-13] MEDS: Sodium Chloride 0.9% 1,000 ML IV SCH (06:05)
[2023-09-13] MEDS: HumaLOG 300 UNITS/3 ML VIAL SC PRN (06:26)
[2023-09-13] MEDS: Acetaminophen 325 MG TAB PO PRN (06:43)
[2023-09-13 07:48] LABS: Anion Gap 13 mmol/L (10-20); BUN (Urea Nitrogen) 6 mg/dL (9.8-20.1); Calc. Creatinine Clearance 129 mL/min (70-130); Calcium 8.7 mg/dL (7.8-10.44); Carbon Dioxide 23 mmol/L (22-29); Chloride 103 mmol/L (98-107); Estimated GFR 85; Glucose 284 mg/dL (70-105); Potassium 2.9 mmol/L (3.5-5.1); Sodium 136 mmol/L (136-145)
[2023-09-13 08:21] VITALS: BP 132/90
[2023-09-13 08:44] LABS: #Eosinphils 0.2 thou/uL (0.0-0.7); #Monocytes 0.2 thou/uL (0.11-0.59); #Neutrophils 1.4 thou/uL (1.40-6.50); %Basophils 0.6 % (0.0-1.0); %Eosinophils 4.5 % (0.0-10.0); %Lymphocytes 50.6 % (21.0-51.0); %Monocytes 5.4 % (0.0-10.0); %Neutrophils 38.6 % (42.0-75.0); Hematocrit 44.3 % (36.0-47.0); Hemoglobin 14.7 g/dL (12.0-16.0); Mean Corpuscular HGB CONC 33.2 g/dL (32.0-36.0); Mean Corpuscular Hemoglobin 31.2 pg (27.0-31.0); Mean Corpuscular Volume 94.1 fl (78.0-98.0); Mean Platelet Volume 10.6 fL (7.4-10.4); RBC Distribution Width 12.3 % (11.5-14.5); Red Blood Cell (RBC) Count 4.71 mill/uL (4.20-5.40); White Blood Cell (WBC) Count 3.5 10x3/uL (4.8-10.8)
[2023-09-13 08:48] LABS: Platelet Count 110 10x3/uL (130-400)
[2023-09-13] MEDS ORDERED: Non-Formulary Item 1 EACH (Lurasidone Hcl [Latuda] 60 MG Tablet) PO SCH (09:00)
[2023-09-13] MEDS: Insulin Glargine 30 UNITS/0.3 ML VIAL SC SCH (09:43)
[2023-09-13] MEDS: Oseltamivir 75 MG CAP PO SCH (09:43)
== END 2023-09-13 12:37 | disposition home or self-care (01) ==
LOC: ERS 20:06 → T4-A 09-12 06:06
PROVIDERS: ADMIT Internal Medicine; ATTEND Emergency Medicine
DX: E11.10 Type 2 diabetes mellitus with ketoacidosis without coma (principal); N17.9 Acute kidney failure, unspecified; J10.1 Influenza due to other identified influenza virus with other respiratory manifestations; I72.8 Aneurysm of other specified arteries; E27.9 Disorder of adrenal gland, unspecified; I10 Essential (primary) hypertension; E03.9 Hypothyroidism, unspecified; F41.9 Anxiety disorder, unspecified; F32.A Depression, unspecified; E66.01 Morbid (severe) obesity due to excess calories; Z68.39 Body mass index [BMI] 39.0-39.9, adult; Z88.1 Allergy status to other antibiotic agents; Z88.6 Allergy status to analgesic agent; Z88.8 Allergy status to other drugs, medicaments and biological substances; Z88.5 Allergy status to narcotic agent; Z90.710 Acquired absence of both cervix and uterus; Z90.49 Acquired absence of other specified parts of digestive tract; Z79.4 Long term (current) use of insulin; Z79.899 Other long term (current) drug therapy
CPT/HCPCS: 36415; 36416; 71046; 74177; 80048; 80053; 81001; 82010; 82805; 83690; 83735; 83930; 84100; 84484; 85025; 93005; 96361; 96365; G0378; J1815; J2550; J7050; Q9967

== ENCOUNTER 2023-10-13 23:13 | Inpatient (IN) | payer OTHER ==
[2023-10-14] MEDS ORDERED: Promethazine 25 MG TAB ONE (01:55)
[2023-10-14 02:28] LABS: #Eosinphils 0.3 thou/uL (0.0-0.7); #Monocytes 0.5 thou/uL (0.11-0.59); #Neutrophils 5.5 thou/uL (1.40-6.50); %Basophils 0.3 % (0.0-1.0); %Eosinophils 3.2 % (0.0-10.0); %Lymphocytes 39.9 % (21.0-51.0); %Monocytes 4.7 % (0.0-10.0); %Neutrophils 51.3 % (42.0-75.0); Hematocrit 39.6 % (36.0-47.0); Hemoglobin 13.1 g/dL (12.0-16.0); Mean Corpuscular HGB CONC 33.1 g/dL (32.0-36.0); Mean Corpuscular Hemoglobin 31.4 pg (27.0-31.0); Mean Platelet Volume 10.2 fL (7.4-10.4); Platelet Count 297 10x3/uL (130-400); Red Blood Cell (RBC) Count 4.17 mill/uL (4.20-5.40); White Blood Cell (WBC) Count 10.7 10x3/uL (4.8-10.8)
[2023-10-14 02:57] LABS: ALT (SGPT) 13 U/L (8-55); AST (SGOT) 12 U/L (5-34); Albumin 3.6 g/dL (3.5-5.0); Alkaline Phosphatase 122 U/L (40-110); Anion Gap 15 mmol/L (10-20); BUN (Urea Nitrogen) 15 mg/dL (9.8-20.1); Bilirubin, Total 0.2 mg/dL (0.2-1.2); Calc. Creatinine Clearance 0 mL/min (70-130); Carbon Dioxide 23 mmol/L (22-29); Chloride 107 mmol/L (98-107); Estimated GFR 64; Globulin 3.2 g/dL (2.4-3.5); Glucose 59 mg/dL (70-105); Potassium 2.9 mmol/L (3.5-5.1); Protein, Total 6.8 g/dL (6.0-8.3); Sodium 142 mmol/L (136-145)
[2023-10-14] MEDS ORDERED: Dextrose 50% Abboject 50 ML SYRINGE SLOW IVP PRN (03:32)
[2023-10-14] MEDS ORDERED: Acetaminophen 650 MG Suppository PR PRN (03:32)
[2023-10-14] MEDS ORDERED: Glucagon 1 MG/ML KIT IM PRN (03:32)
[2023-10-14] MEDS ORDERED: Dextrose 5% in Water 1,000 ML IV PRN (03:32)
[2023-10-14] MEDS ORDERED: Dextrose 10% in Water 250 ML ONE (03:55)
[2023-10-14] MEDS ORDERED: Electrolyte Replacement Protocol 1 EACH FS SCH (06:00)
[2023-10-14] MEDS ORDERED: Potassium Chloride 20 MEQ TAB ONE ×2 (08:11→13:58)
[2023-10-14] MEDS ORDERED: Acetaminophen 325 MG TAB ONE (08:11)
[2023-10-14] MEDS: Potassium Chloride 20 MEQ TAB PO SCH ×2 (08:33→14:09)
[2023-10-14] MEDS: Sodium Chloride 0.9% 1,000 ML IV SCH ×2 (08:34→21:46)
[2023-10-14] MEDS: Acetaminophen 325 MG TAB PO PRN ×2 (08:34→16:57)
[2023-10-14 08:45] LABS: Chloride 106 mmol/L (98-107); Sodium 139 mmol/L (136-145)
[2023-10-14 08:46] LABS: Calcium 8.8 mg/dL (7.8-10.44); Glucose 192 mg/dL (70-105)
[2023-10-14 08:48] LABS: Anion Gap 16 mmol/L (10-20); Carbon Dioxide 22 mmol/L (22-29)
[2023-10-14 08:50] LABS: Calc. Creatinine Clearance 0 mL/min (70-130); Estimated GFR 68
[2023-10-14 08:51] LABS: BUN (Urea Nitrogen) 15 mg/dL (9.8-20.1)
[2023-10-14] MEDS: Lurasidone 20 MG TABLET PO SCH (08:51)
[2023-10-14 08:52] LABS: Magnesium 1.4 mg/dL (1.6-2.6)
[2023-10-14] MEDS ORDERED: Non-Formulary Item 1 EACH (Gabapentin [Gabapentin] 800 MG Tablet) PO SCH (09:00)
[2023-10-14] MEDS ORDERED: Non-Formulary Item 1 EACH (Lurasidone Hcl [Latuda] 60 MG Tablet) PO SCH (09:00)
[2023-10-14 09:19] LABS: Potassium 4.9 mmol/L (3.5-5.1)
[2023-10-14] MEDS ORDERED: Magnesium Sulfate In Water 4 GM in Premix 1 BAG IVPB SCH (11:00)
[2023-10-14] MEDS ORDERED: Atorvastatin Calcium 20 MG TAB ONE (11:11)
[2023-10-14] MEDS ORDERED: ALPRAZolam 0.25 MG TAB ONE (11:11)
[2023-10-14] MEDS: Atorvastatin Calcium 20 MG TAB PO SCH (11:12)
[2023-10-14] MEDS: Benztropine 1 MG TAB PO SCH ×2 (11:12→21:38)
[2023-10-14] MEDS: ALPRAZolam 0.25 MG TAB PO PRN ×2 (11:13→20:26)
[2023-10-14 13:07] LABS: Potassium 4.3 mmol/L (3.5-5.1)
[2023-10-14] MEDS ORDERED: Gabapentin 400 MG CAP ONE (13:58)
[2023-10-14] MEDS: Gabapentin 400 MG CAP PO SCH ×3 (14:09→21:45)
[2023-10-14 16:25] VITALS: BMI 41.0
[2023-10-14 17:03] LABS: Hemoglobin A1c 10.6 % (4.0-6.0)
[2023-10-14 18:33] LABS: Anion Gap 14 mmol/L (10-20); BUN (Urea Nitrogen) 14 mg/dL (9.8-20.1); Calc. Creatinine Clearance 110 mL/min (70-130); Calcium 8.9 mg/dL (7.8-10.44); Carbon Dioxide 20 mmol/L (22-29); Chloride 106 mmol/L (98-107); Estimated GFR 68; Glucose 282 mg/dL (70-105); Potassium 4.7 mmol/L (3.5-5.1); Sodium 135 mmol/L (136-145)
[2023-10-14] MEDS: HumaLOG 300 UNITS/3 ML VIAL SC PRN (18:38)
[2023-10-14] MEDS ORDERED: Promethazine 25 MG TAB PO SCH (20:30)
[2023-10-14] MEDS ORDERED: Insulin NPH Human Isophane 100 UNITS/ML (10 ML VIAL) SC SCH (21:00)
[2023-10-14] MEDS: HYDROcodone/Acetaminophen 10/325 mg Tablet PO PRN (21:45)
[2023-10-14] MEDS: Zolpidem Tartrate 5 MG TAB PO PRN (21:46)
[2023-10-15 04:13] LABS: #Eosinphils 0.3 thou/uL (0.0-0.7); #Monocytes 0.3 thou/uL (0.11-0.59); #Neutrophils 2.5 thou/uL (1.40-6.50); %Basophils 0.4 % (0.0-1.0); %Eosinophils 4.4 % (0.0-10.0); %Lymphocytes 55.7 % (21.0-51.0); %Monocytes 4.1 % (0.0-10.0); %Neutrophils 35.1 % (42.0-75.0); Hemoglobin 12.7 g/dL (12.0-16.0); Mean Corpuscular HGB CONC 31.8 g/dL (32.0-36.0); Mean Corpuscular Volume 97.6 fl (78.0-98.0); Mean Platelet Volume 10.3 fL (7.4-10.4); Platelet Count 246 10x3/uL (130-400); White Blood Cell (WBC) Count 7.2 10x3/uL (4.8-10.8)
[2023-10-15] MEDS: HumaLOG 300 UNITS/3 ML VIAL SC PRN ×3 (04:18→21:24)
[2023-10-15 04:31] LABS: Anion Gap 12 mmol/L (10-20); BUN (Urea Nitrogen) 17 mg/dL (9.8-20.1); Calc. Creatinine Clearance 121 mL/min (70-130); Calcium 9.1 mg/dL (7.8-10.44); Carbon Dioxide 23 mmol/L (22-29); Chloride 106 mmol/L (98-107); Estimated GFR 76; Glucose 296 mg/dL (70-105); Magnesium 1.7 mg/dL (1.6-2.6); Potassium 4.3 mmol/L (3.5-5.1); Sodium 137 mmol/L (136-145)
[2023-10-15] MEDS ORDERED: Magnesium 2 GM/50 ML(in water) 2 GM in Premix 1 BAG IVPB SCH (08:00)
[2023-10-15] MEDS: Benztropine 1 MG TAB PO SCH ×2 (08:27→21:22)
[2023-10-15] MEDS: Insulin Glargine 30 UNITS/0.3 ML VIAL SC SCH (08:27)
[2023-10-15] MEDS: Gabapentin 400 MG CAP PO SCH ×4 (08:28→21:22)
[2023-10-15] MEDS: Atorvastatin Calcium 20 MG TAB PO SCH (08:28)
[2023-10-15] MEDS: HYDROcodone/Acetaminophen 10/325 mg Tablet PO PRN ×2 (08:34→21:22)
[2023-10-15] MEDS: Lurasidone 20 MG TABLET PO SCH (11:55)
[2023-10-15] MEDS: ALPRAZolam 0.25 MG TAB PO PRN ×2 (13:17→17:34)
[2023-10-15] MEDS ORDERED: Promethazine HCl 25 MG in Sodium Chloride 0.9% 50 ML IVPB SCH (13:45)
[2023-10-15 14:23] LABS: ALT (SGPT) 10 U/L (8-55); AST (SGOT) 10 U/L (5-34); Albumin 3.6 g/dL (3.5-5.0); Alkaline Phosphatase 140 U/L (40-110); Bilirubin, Direct 0.1 mg/dL (0.1-0.3); Bilirubin, Total 0.3 mg/dL (0.2-1.2); Lipase 33 U/L (8-78); Protein, Total 6.4 g/dL (6.0-8.3)
[2023-10-15] MEDS: Promethazine 25 MG TAB PO PRN (19:44)
[2023-10-15] MEDS: Zolpidem Tartrate 5 MG TAB PO PRN (21:22)
[2023-10-16] MEDS: HumaLOG 300 UNITS/3 ML VIAL SC PRN ×4 (00:12→20:35)
[2023-10-16 08:02] LABS: #Eosinphils 0.3 thou/uL (0.0-0.7); #Monocytes 0.4 thou/uL (0.11-0.59); #Neutrophils 2.8 thou/uL (1.40-6.50); %Basophils 0.4 % (0.0-1.0); %Eosinophils 3.7 % (0.0-10.0); %Lymphocytes 50.4 % (21.0-51.0); %Monocytes 5.3 % (0.0-10.0); %Neutrophils 40.1 % (42.0-75.0); Hematocrit 43.8 % (36.0-47.0); Hemoglobin 13.6 g/dL (12.0-16.0); Mean Corpuscular HGB CONC 31.1 g/dL (32.0-36.0); Mean Corpuscular Hemoglobin 31.1 pg (27.0-31.0); Mean Corpuscular Volume 100.2 fl (78.0-98.0); Mean Platelet Volume 10.3 fL (7.4-10.4); Platelet Count 224 10x3/uL (130-400); RBC Distribution Width 12.2 % (11.5-14.5); Red Blood Cell (RBC) Count 4.37 mill/uL (4.20-5.40)
[2023-10-16] MEDS: Benztropine 1 MG TAB PO SCH ×2 (11:06→20:35)
[2023-10-16] MEDS: ALPRAZolam 0.25 MG TAB PO PRN ×2 (11:06→20:35)
[2023-10-16] MEDS: Insulin Glargine 30 UNITS/0.3 ML VIAL SC SCH (11:07)
[2023-10-16] MEDS: Promethazine 25 MG TAB PO PRN ×2 (11:07→22:26)
[2023-10-16] MEDS: Atorvastatin Calcium 20 MG TAB PO SCH (11:07)
[2023-10-16] MEDS: Gabapentin 400 MG CAP PO SCH ×4 (11:07→20:35)
[2023-10-16] MEDS: Lurasidone 20 MG TABLET PO SCH (11:08)
[2023-10-16] MEDS ORDERED: Regadenoson 0.4 MG/5 ML SYRINGE ONE (11:42)
[2023-10-16] MEDS ORDERED: Metoprolol Tartrate 25 MG TAB PO SCH (12:15)
[2023-10-16] MEDS ORDERED: Promethazine HCl 25 MG in Sodium Chloride 0.9% 50 ML IVPB SCH (15:45)
[2023-10-16 18:04] LABS: ALT (SGPT) 12 U/L (8-55); AST (SGOT) 17 U/L (5-34); Albumin 3.8 g/dL (3.5-5.0); Alkaline Phosphatase 128 U/L (40-110); Anion Gap 20 mmol/L (10-20); BUN (Urea Nitrogen) 17 mg/dL (9.8-20.1); Bilirubin, Direct 0.1 mg/dL (0.1-0.3); Bilirubin, Total 0.4 mg/dL (0.2-1.2); Calc. Creatinine Clearance 116 mL/min (70-130); Calcium 10.2 mg/dL (7.8-10.44); Carbon Dioxide 20 mmol/L (22-29); Chloride 104 mmol/L (98-107); Estimated GFR 73; Globulin 3.4 g/dL (2.4-3.5); Glucose 251 mg/dL (70-105); Lipase 27 U/L (8-78); Magnesium 1.7 mg/dL (1.6-2.6); Potassium 5.4 mmol/L (3.5-5.1); Protein, Total 7.2 g/dL (6.0-8.3); Sodium 139 mmol/L (136-145)
[2023-10-16] MEDS ORDERED: Magnesium 2 GM/50 ML(in water) 2 GM in Premix 1 BAG IVPB SCH (18:45)
[2023-10-16 20:33] LABS: Bacteria/HPF 4+ HPF (None Seen); Bilirubin Negative (Negative); Blood, Urine Negative (Negative); CAUTI Indications for Culture Pelvic or flank pain; Clarity Turbid (Clear); Glucose, Urine (Dipstick) Normal (Negative); Ketone, Urine Negative (Negative); Leukocyte Negative Leu/uL (Negative); Nitrite Negative (Negative); Protein, Urine (Dipstick) Negative (Neg-Trace); RBC/HPF 0-3 HPF (0-3); Specific Gravity, Urine 1.017 (1.002-1.036); Squamous Epithelial 0-3 HPF (0-3); Urobilinogen Normal mg/dL (Less than 2); pH, Urine 6.5 (5.0-9.0)
[2023-10-16 20:36] LABS: Urine Culture Reflex No No
[2023-10-16] MEDS: HYDROcodone/Acetaminophen 10/325 mg Tablet PO PRN (20:44)
[2023-10-16] MEDS: Zolpidem Tartrate 5 MG TAB PO PRN (21:46)
[2023-10-16 22:39] LABS: Anion Gap 16 mmol/L (10-20); BUN (Urea Nitrogen) 17 mg/dL (9.8-20.1); Calc. Creatinine Clearance 100 mL/min (70-130); Calcium 9.7 mg/dL (7.8-10.44); Carbon Dioxide 24 mmol/L (22-29); Chloride 102 mmol/L (98-107); Estimated GFR 61; Glucose 253 mg/dL (70-105); Potassium 4.1 mmol/L (3.5-5.1); Sodium 138 mmol/L (136-145)
[2023-10-17] MEDS: HYDROcodone/Acetaminophen 10/325 mg Tablet PO PRN ×3 (03:13→18:20)
[2023-10-17] MEDS: Promethazine 25 MG TAB PO PRN ×2 (03:14→18:21)
[2023-10-17 05:01] LABS: #Eosinphils 0.4 thou/uL (0.0-0.7); #Monocytes 0.4 thou/uL (0.11-0.59); #Neutrophils 3.8 thou/uL (1.40-6.50); %Basophils 0.5 % (0.0-1.0); %Eosinophils 4.2 % (0.0-10.0); %Lymphocytes 43.2 % (21.0-51.0); %Monocytes 5.1 % (0.0-10.0); %Neutrophils 46.2 % (42.0-75.0); Hematocrit 40.9 % (36.0-47.0); Hemoglobin 13.9 g/dL (12.0-16.0); Mean Corpuscular Hemoglobin 31.7 pg (27.0-31.0); Mean Platelet Volume 10.8 fL (7.4-10.4); Platelet Count 201 10x3/uL (130-400); Red Blood Cell (RBC) Count 4.38 mill/uL (4.20-5.40); White Blood Cell (WBC) Count 8.3 10x3/uL (4.8-10.8)
[2023-10-17 05:02] LABS: ALT (SGPT) 12 U/L (8-55); AST (SGOT) 10 U/L (5-34); Albumin 3.5 g/dL (3.5-5.0); Alkaline Phosphatase 160 U/L (40-110); Anion Gap 16 mmol/L (10-20); BUN (Urea Nitrogen) 17 mg/dL (9.8-20.1); Bilirubin, Total 0.3 mg/dL (0.2-1.2); Calc. Creatinine Clearance 121 mL/min (70-130); Calcium 9.5 mg/dL (7.8-10.44); Carbon Dioxide 22 mmol/L (22-29); Chloride 101 mmol/L (98-107); Estimated GFR 76; Globulin 3.3 g/dL (2.4-3.5); Glucose 347 mg/dL (70-105); Magnesium 1.9 mg/dL (1.6-2.6); Potassium 4.7 mmol/L (3.5-5.1); Protein, Total 6.8 g/dL (6.0-8.3); Sodium 134 mmol/L (136-145)
[2023-10-17 05:06] LABS: Mean Corpuscular Volume 93.4 fl (78.0-98.0)
[2023-10-17] MEDS: HumaLOG 300 UNITS/3 ML VIAL SC PRN ×2 (06:12→21:55)
[2023-10-17] MEDS: Insulin Glargine 30 UNITS/0.3 ML VIAL SC SCH (07:39)
[2023-10-17] MEDS ORDERED: Magnesium 2 GM/50 ML(in water) 2 GM in Premix 1 BAG IVPB SCH (08:00)
[2023-10-17] MEDS ORDERED: Metoprolol Tartrate 25 MG TAB PO SCH (09:00)
[2023-10-17] MEDS ORDERED: HumaLOG 300 UNITS/3 ML VIAL SC PRN ×2 (11:03→18:48)
[2023-10-17] MEDS: Gabapentin 400 MG CAP PO SCH ×4 (11:48→21:34)
[2023-10-17] MEDS: Atorvastatin Calcium 20 MG TAB PO SCH (11:48)
[2023-10-17] MEDS: Benztropine 1 MG TAB PO SCH ×2 (11:48→21:34)
[2023-10-17] MEDS: Lurasidone 20 MG TABLET PO SCH (11:54)
[2023-10-17] MEDS: ALPRAZolam 0.25 MG TAB PO PRN (16:33)
[2023-10-17] MEDS ORDERED: FLU VACC QS2023-24(6MOS UP)/PF 60 MCG/0.5 ML SYRINGE IM ONE (18:00)
[2023-10-17] MEDS: Zolpidem Tartrate 5 MG TAB PO PRN (21:33)
[2023-10-18] MEDS: HYDROcodone/Acetaminophen 10/325 mg Tablet PO PRN ×2 (00:40→06:46)
[2023-10-18 05:20] LABS: ALT (SGPT) 15 U/L (8-55); AST (SGOT) 17 U/L (5-34); Albumin 3.7 g/dL (3.5-5.0); Alkaline Phosphatase 158 U/L (40-110); Anion Gap 19 mmol/L (10-20); BUN (Urea Nitrogen) 17 mg/dL (9.8-20.1); Bilirubin, Total 0.4 mg/dL (0.2-1.2); Calc. Creatinine Clearance 91 mL/min (70-130); Calcium 9.4 mg/dL (7.8-10.44); Carbon Dioxide 20 mmol/L (22-29); Chloride 100 mmol/L (98-107); Estimated GFR 54; Globulin 3.3 g/dL (2.4-3.5); Magnesium 1.7 mg/dL (1.6-2.6); Sodium 134 mmol/L (136-145)
[2023-10-18 05:24] LABS: Glucose 464 mg/dL (70-105)
[2023-10-18] MEDS ORDERED: HumaLOG 300 UNITS/3 ML VIAL SC PRN (07:30)
[2023-10-18] MEDS ORDERED: Magnesium 2 GM/50 ML(in water) 2 GM in Premix 1 BAG IVPB SCH (08:00)
[2023-10-18] MEDS: Benztropine 1 MG TAB PO SCH (08:55)
[2023-10-18] MEDS: Gabapentin 400 MG CAP PO SCH (08:55)
[2023-10-18] MEDS: Atorvastatin Calcium 20 MG TAB PO SCH (08:55)
[2023-10-18] MEDS: Insulin Glargine 30 UNITS/0.3 ML VIAL SC SCH (08:56)
[2023-10-18] MEDS: Lurasidone 20 MG TABLET PO SCH (08:57)
[2023-10-18 09:50] VITALS: BP 110/70; TEMP 97.8
== END 2023-10-18 11:15 | disposition home or self-care (01) | DRG 918 ==
LOC: ERS 23:13 → ERHOLD 10-14 03:28 → 2NO 10-14 16:09
PROVIDERS: ADMIT Student in an Organized Health Care Education/Training Program; ATTEND Family Medicine
DX: T38.3X1A Poisoning by insulin and oral hypoglycemic [antidiabetic] drugs, accidental (unintentional), initial encounter (principal); E78.5 Hyperlipidemia, unspecified; E03.9 Hypothyroidism, unspecified; K58.9 Irritable bowel syndrome, unspecified; E11.649 Type 2 diabetes mellitus with hypoglycemia without coma; E87.6 Hypokalemia; G47.33 Obstructive sleep apnea (adult) (pediatric); I95.9 Hypotension, unspecified; F31.9 Bipolar disorder, unspecified; F41.9 Anxiety disorder, unspecified; M54.30 Sciatica, unspecified side; E87.5 Hyperkalemia; E83.42 Hypomagnesemia; R00.0 Tachycardia, unspecified; Z77.22 Contact with and (suspected) exposure to environmental tobacco smoke (acute) (chronic); Z79.899 Other long term (current) drug therapy; Z88.8 Allergy status to other drugs, medicaments and biological substances; Z88.5 Allergy status to narcotic agent; Z79.4 Long term (current) use of insulin; Z90.49 Acquired absence of other specified parts of digestive tract; Z90.710 Acquired absence of both cervix and uterus; Z98.890 Other specified postprocedural states; Z71.6 Tobacco abuse counseling
CPT/HCPCS: 36415; 36416; 78452; 80048; 80053; 81001; 82248; 83036; 83690; 83735; 85025; 93005; 93010; 93017; 93306; 96361; 96365; 96366; A9502; J1611; J1815; J2550; J2785; J3475; J7050; Q0169

== ENCOUNTER 2023-11-14 17:44 | Emergency (ER) | payer OTHER ==
[2023-11-14 19:13] LABS: SARS-CoV-2 NAA Rapid Test Not Detected (NotDetected)
[2023-11-14 19:35] LABS: ALT (SGPT) 17 U/L (8-55); AST (SGOT) 17 U/L (5-34); Albumin 3.7 g/dL (3.5-5.0); Alkaline Phosphatase 134 U/L (40-110); Anion Gap 14 mmol/L (10-20); BUN (Urea Nitrogen) 14 mg/dL (9.8-20.1); Bilirubin, Total 0.2 mg/dL (0.2-1.2); Calc. Creatinine Clearance 0 mL/min (70-130); Calcium 8.9 mg/dL (7.8-10.44); Carbon Dioxide 20 mmol/L (22-29); Chloride 107 mmol/L (98-107); Estimated GFR 70; Globulin 3.6 g/dL (2.4-3.5); Glucose 146 mg/dL (70-105); Lipase 12 U/L (8-78); Magnesium 1.5 mg/dL (1.6-2.6); Potassium 3.7 mmol/L (3.5-5.1); Protein, Total 7.3 g/dL (6.0-8.3); Sodium 137 mmol/L (136-145)
[2023-11-14 19:42] LABS: #Eosinphils 0.4 thou/uL (0.0-0.7); #Monocytes 0.6 thou/uL (0.11-0.59); #Neutrophils 3.8 thou/uL (1.40-6.50); %Basophils 0.5 % (0.0-1.0); %Eosinophils 6.6 % (0.0-10.0); %Lymphocytes 24.4 % (21.0-51.0); %Monocytes 9.1 % (0.0-10.0); %Neutrophils 58.9 % (42.0-75.0); Hematocrit 43.2 % (36.0-47.0); Hemoglobin 13.8 g/dL (12.0-16.0); Mean Corpuscular HGB CONC 31.9 g/dL (32.0-36.0); Mean Corpuscular Hemoglobin 31.4 pg (27.0-31.0); Mean Corpuscular Volume 98.4 fl (78.0-98.0); Mean Platelet Volume 9.5 fL (7.4-10.4); Platelet Count 250 10x3/uL (130-400); RBC Distribution Width 12.6 % (11.5-14.5); Red Blood Cell (RBC) Count 4.39 mill/uL (4.20-5.40); White Blood Cell (WBC) Count 6.5 10x3/uL (4.8-10.8)
== END 2023-11-14 20:12 | disposition home or self-care (01) ==
LOC: ERS 17:44
DX: E11.649 Type 2 diabetes mellitus with hypoglycemia without coma (principal); Z77.22 Contact with and (suspected) exposure to environmental tobacco smoke (acute) (chronic)
CPT/HCPCS: 36415; 36416; 71046; 80053; 83690; 83735; 85025

== ENCOUNTER 2024-01-04 15:59 | Emergency (ER) | payer OTHER ==
[~2024-01-04 15:59] MED LIST changes: -Iopamidol 370 76% 100 ML VIAL ONE; +Iopamidol-370 76% 500 ML MDV (1 ML CHARGE) ONE
[2024-01-04 18:17] LABS: Bacteria/HPF None Seen HPF (None Seen); Bilirubin Negative (Negative); Blood, Urine Negative (Negative); CAUTI Indications for Culture Dysuria,urgency,freq; Clarity Clear (Clear); Glucose, Urine (Dipstick) Greater than 1000 mg/dL (Negative); Ketone, Urine Negative (Negative); Leukocyte Negative Leu/uL (Negative); Nitrite Negative (Negative); Protein, Urine (Dipstick) Negative (Neg-Trace); RBC/HPF 0-3 HPF (0-3); Specific Gravity, Urine 1.025 (1.002-1.036); Squamous Epithelial 0-3 HPF (0-3); Urobilinogen Normal mg/dL (Less than 2); WBC/HPF 0-3 HPF (0-3); pH, Urine 6.5 (5.0-9.0)
[2024-01-04 18:18] LABS: Urine Culture Reflex No No
[2024-01-04] MEDS ORDERED: Sodium Chloride 0.9% 250 ML 250 ML ONE (19:27)
[2024-01-04] MEDS ORDERED: Vancomycin 1 GM/200 ML (FROZEN) BAG ONE (19:27)
[2024-01-04] MEDS ORDERED: cefTRIAXone (ROCEPHIN) 1 GM VIAL ONE (19:27)
[2024-01-04 19:28] LABS: #Eosinphils 0.4 thou/uL (0.0-0.7); #Monocytes 0.4 thou/uL (0.11-0.59); #Neutrophils 4.2 thou/uL (1.40-6.50); %Basophils 0.3 % (0.0-1.0); %Eosinophils 4.7 % (0.0-10.0); %Lymphocytes 45.1 % (21.0-51.0); %Monocytes 4.2 % (0.0-10.0); %Neutrophils 45.4 % (42.0-75.0); Hematocrit 38.2 % (36.0-47.0); Hemoglobin 12.7 g/dL (12.0-16.0); Mean Corpuscular HGB CONC 33.2 g/dL (32.0-36.0); Mean Corpuscular Hemoglobin 31.7 pg (27.0-31.0); Mean Corpuscular Volume 95.3 fl (78.0-98.0); Mean Platelet Volume 10.1 fL (7.4-10.4); Platelet Count 251 10x3/uL (130-400); RBC Distribution Width 12.5 % (11.5-14.5); Red Blood Cell (RBC) Count 4.01 mill/uL (4.20-5.40); White Blood Cell (WBC) Count 9.1 10x3/uL (4.8-10.8)
[2024-01-04] MEDS ORDERED: Sodium Chloride 0.9% 100 ML ONE ×2 (19:28→19:42)
[2024-01-04] MEDS ORDERED: Cefepime 2 GM VIAL ONE (19:40)
[2024-01-04 20:00] LABS: Troponin I Less than 0.010 ng/mL (< 0.028)
[2024-01-04] MEDS ORDERED: LevoFLOXacin 750 mg/D5W 750 MG in Premix 1 BAG IVPB SCH (20:00)
[2024-01-04 20:02] LABS: ALT (SGPT) 34 U/L (8-55); AST (SGOT) 13 U/L (5-34); Albumin 3.8 g/dL (3.5-5.0); Alkaline Phosphatase 181 U/L (40-110); Anion Gap 13 mmol/L (10-20); BUN (Urea Nitrogen) 14 mg/dL (9.8-20.1); Bilirubin, Total 0.3 mg/dL (0.2-1.2); Calc. Creatinine Clearance 0 mL/min (70-130); Carbon Dioxide 25 mmol/L (22-29); Chloride 102 mmol/L (98-107); Estimated GFR 68; Globulin 3.1 g/dL (2.4-3.5); Lipase 38 U/L (8-78); Potassium 4.8 mmol/L (3.5-5.1); Protein, Total 6.9 g/dL (6.0-8.3); Sodium 135 mmol/L (136-145)
[2024-01-04 20:15] LABS: Glucose 469 mg/dL (70-105)
[2024-01-04] MEDS ORDERED: HumaLOG 300 UNITS/3 ML VIAL ONE (21:07)
== END 2024-01-04 21:58 | disposition home or self-care (01) ==
LOC: ERS 15:59
DX: E11.65 Type 2 diabetes mellitus with hyperglycemia (principal); K20.90 Esophagitis, unspecified without bleeding; E11.649 Type 2 diabetes mellitus with hypoglycemia without coma; Z77.22 Contact with and (suspected) exposure to environmental tobacco smoke (acute) (chronic)
CPT/HCPCS: 36415; 36416; 71046; 71275; 80053; 81001; 82010; 83605; 83690; 83880; 84484; 85025; 85379; 87040; J0692; J0696; J1815; J1956; J3370-JW; J3490; J7050; Q9967

== ENCOUNTER 2024-04-08 21:24 | Emergency (ER) | payer OTHER ==
[2024-04-08 23:23] LABS: Bacteria/HPF 2+ HPF (None Seen); Bilirubin Negative (Negative); Blood, Urine 2+ (Negative); CAUTI Indications for Culture Dysuria,urgency,freq; Clarity Extra Turbid (Clear); Glucose, Urine (Dipstick) Normal (Negative); Ketone, Urine Trace mg/dL (Negative); Leukocyte 500 Leu/uL (Negative); Nitrite Negative (Negative); Protein, Urine (Dipstick) 200 mg/dL (Neg-Trace); RBC/HPF 21-50 HPF (0-3); Specific Gravity, Urine 1.038 (1.002-1.036); WBC/HPF Greater than 50 HPF (0-3)
[2024-04-08 23:24] LABS: Urine Culture Reflex Yes Yes
== END 2024-04-09 00:42 | disposition left against medical advice (07) ==
LOC: ERS 21:24
DX: Z53.21 Procedure and treatment not carried out due to patient leaving prior to being seen by health care provider (principal)
CPT/HCPCS: 81001; 87086

== ENCOUNTER 2024-04-10 17:41 | Emergency (ER) | payer OTHER ==
[2024-04-10 18:20] LABS: Clarity Hazy (Clear)
[2024-04-10 18:21] LABS: Specific Gravity, Urine 1.043 (1.002-1.036)
[2024-04-10 18:22] LABS: Leukocyte Unable to Interpret Leu/uL (Negative); Nitrite Unable to Interpret (Negative)
[2024-04-10 18:23] LABS: Protein, Urine (Dipstick) 300 mg/dL (Neg-Trace)
[2024-04-10 18:26] LABS: Bilirubin Unable to Interpret (Negative); Glucose, Urine (Dipstick) 100 mg/dL (Negative); Ketone, Urine Unable to Interpret mg/dL (Negative); Urobilinogen UNABLE TO INTERPRET mg/dL (Less than 2)
[2024-04-10 18:27] LABS: Blood, Urine Negative (Negative)
[2024-04-10 18:28] LABS: CAUTI Indications for Culture Acute Hematuria
[2024-04-10 18:39] LABS: RBC/HPF 0-3 HPF (0-3)
[2024-04-10 18:40] LABS: Bacteria/HPF 3+ HPF (None Seen); WBC/HPF 21-50 HPF (0-3)
[2024-04-10 18:41] LABS: Urine Culture Reflex Yes Yes
[2024-04-10 21:00] LABS: #Basophils Less than 0.03 10x3/uL (0.0-0.2); %Basophils 0.2 % (0.0-1.0); %Eosinophils 5.6 % (0.0-10.0); %Lymphocytes 47.3 % (21.0-51.0); %Monocytes 4.8 % (0.0-10.0); %Neutrophils 41.9 % (42.0-75.0); Hematocrit 37.7 % (36.0-47.0); Hemoglobin 12.1 g/dL (12.0-16.0); Mean Corpuscular HGB CONC 32.1 g/dL (32.0-36.0); Mean Corpuscular Hemoglobin 30.9 pg (27.0-31.0); Mean Corpuscular Volume 96.4 fL (78.0-98.0); Mean Platelet Volume 9.9 fL (7.4-10.4); Platelet Count 319 10x3/uL (130-400); RBC Distribution Width 12.5 % (11.5-14.5); Red Blood Cell (RBC) Count 3.91 mill/uL (4.20-5.40)
[2024-04-10 21:17] LABS: ALT (SGPT) 296 U/L (8-55); AST (SGOT) 417 U/L (5-34); Albumin 3.4 g/dL (3.5-5.0); Alkaline Phosphatase 175 U/L (40-110); Anion Gap 18 mmol/L (10-20); BUN (Urea Nitrogen) 15 mg/dL (9.8-20.1); Bilirubin, Total 0.6 mg/dL (0.2-1.2); Calc. Creatinine Clearance 0 mL/min (70-130); Calcium 9.2 mg/dL (7.8-10.44); Carbon Dioxide 23 mmol/L (22-29); Chloride 102 mmol/L (98-107); Estimated GFR 53; Globulin 4.1 g/dL (2.4-3.5); Glucose 308 mg/dL (70-105); Potassium 3.7 mmol/L (3.5-5.1); Protein, Total 7.5 g/dL (6.0-8.3); Sodium 139 mmol/L (136-145)
== END 2024-04-10 23:03 | disposition home or self-care (01) ==
LOC: ERS 17:41
DX: N39.0 Urinary tract infection, site not specified (principal); I10 Essential (primary) hypertension; E11.9 Type 2 diabetes mellitus without complications; Z55.6 Problems related to health literacy
CPT/HCPCS: 36415; 74176; 80053; 81001; 83605; 85025; 87040; 87086

== ENCOUNTER 2025-09-17 13:29 | Emergency (ER) | payer OTHER ==
[2025-09-17] MEDS ORDERED: Dexamethasone 10 MG/ML VIAL ONE (15:27)
[2025-09-17 15:41] LABS: CAUTI Indications for Culture Pelvic or flank pain; Glucose, Urine (Dipstick) Normal (Negative); Leukocyte 25 Leu/uL (Negative); Protein, Urine (Dipstick) 50 mg/dL (Neg-Trace); RBC/HPF None Seen HPF (0-3)
[2025-09-17 15:47] LABS: Bacteria/HPF 1+ HPF (None Seen); Specific Gravity, Urine Greater than 1.050 (1.002-1.036)
[2025-09-17 15:49] LABS: Urine Culture Reflex Yes Yes
== END 2025-09-17 16:10 | disposition home or self-care (01) ==
LOC: ERS 13:29
DX: S39.012A Strain of muscle, fascia and tendon of lower back, initial encounter (principal); E11.43 Type 2 diabetes mellitus with diabetic autonomic (poly)neuropathy; K31.84 Gastroparesis; X58.XXXA Exposure to other specified factors, initial encounter
CPT/HCPCS: 72100; 81001; 87086; 96372; 99283; J1100; J2060; J2270

== ENCOUNTER 2025-09-30 15:06 | Observation (INO) | payer OTHER ==
[2025-09-30 17:27] LABS: #Basophils 0.03 10x3/uL (0.0-0.2); #Eosinophils 0.14 10x3/uL (0.0-0.7); #Monocytes 0.30 10x3/uL (0.11-0.59); #Neutrophils 2.62 10x3/uL (1.40-6.50); %Basophils 0.4 % (0.0-1.0); %Eosinophils 2.1 % (0.0-10.0); %Lymphocytes 53.9 % (21.0-51.0); %Monocytes 4.5 % (0.0-10.0); %Neutrophils 39.0 % (42.0-75.0); Hematocrit 42.0 % (36.0-47.0); Hemoglobin 13.8 g/dL (12.0-16.0); Mean Corpuscular Hemoglobin 32.2 pg (27.0-31.0); Mean Corpuscular Volume 97.9 fL (78.0-98.0); Platelet Count 291 10x3/uL (130-400); Red Blood Cell (RBC) Count 4.29 mill/uL (4.20-5.40); White Blood Cell (WBC) Count 6.72 10x3/uL (4.8-10.8)
[2025-09-30 17:39] LABS: INR-International Normal Ratio 1.1; PTT 28.2 sec (22.9-36.1); Prothrombin Time 14.2 sec (12.0-14.7)
[2025-09-30 17:45] LABS: ALT (SGPT) 33 U/L (Less than 34); AST (SGOT) 38 U/L (11-34); Albumin 3.5 g/dL (3.1-4.5); Alkaline Phosphatase 156 U/L (40-110); Anion Gap 13 mmol/L (10-20); BUN (Urea Nitrogen) 12 mg/dL (9.8-20.1); Bilirubin, Total 0.6 mg/dL (0.3-1.2); Calc. Creatinine Clearance 0 mL/min (70-130); Calcium 9.1 mg/dL (7.8-10.44); Carbon Dioxide 28 mmol/L (22-29); Chloride 104 mmol/L (98-107); Globulin 3.3 g/dL (2.4-3.5); Glucose 154 mg/dL (70-105); Magnesium 1.3 mg/dL (1.6-2.6); Potassium 2.9 mmol/L (3.5-5.1); Sodium 142 mmol/L (136-145)
[2025-09-30] MEDS ORDERED: Magnesium 2 GM/50 ML BAG (IN WATER) ONE (17:56)
[2025-09-30] MEDS ORDERED: NS 0.9% w/ 20 MEQ KCL 1,000 ML ONE (18:22)
[2025-09-30] MEDS ORDERED: Calcium Carbonate 500 MG ChewTAB PO PRN (20:01)
[2025-09-30] MEDS ORDERED: Acetaminophen 325 MG TAB PO PRN (20:01)
[2025-09-30] MEDS ORDERED: Senokot S 8.6-50 MG TAB PO PRN (20:01)
[2025-09-30] MEDS ORDERED: hydrALAZINE 20 MG/ML VIAL SLOW IVP PRN (20:04)
[2025-09-30] MEDS ORDERED: Dextrose 50% Abboject 50 ML SYRINGE SLOW IVP PRN (20:10)
[2025-09-30] MEDS ORDERED: Glucagon 1 MG/ML KIT IM PRN (20:10)
[2025-09-30] MEDS ORDERED: Pantoprazole 40 MG DR.TAB PO SCH (21:00)
[2025-09-30 21:03] VITALS: BMI 26.2
[2025-09-30] MEDS: Magnesium 2 GM/50 ML(in water) 2 GM in Premix 1 BAG IVPB SCH (21:29)
[2025-09-30] MEDS: Heparin 5,000 UNITS/ML VIAL SC SCH (21:31)
[2025-09-30] MEDS: HYDROcodone/Acetaminophen 10/325 mg Tablet PO PRN (21:59)
[2025-09-30] MEDS: NS 0.9% w/ 40 MEQ KCL 1,000 ML IV SCH (23:18)
[2025-10-01] MEDS: Cyclobenzaprine 10 MG TAB PO PRN (04:00)
[2025-10-01 04:04] LABS: #Basophils Less than 0.03 10x3/uL (0.0-0.2); #Eosinophils 0.19 10x3/uL (0.0-0.7); #Monocytes 0.28 10x3/uL (0.11-0.59); #Neutrophils 2.84 10x3/uL (1.40-6.50); %Basophils 0.3 % (0.0-1.0); %Eosinophils 3.0 % (0.0-10.0); %Lymphocytes 47.1 % (21.0-51.0); %Monocytes 4.4 % (0.0-10.0); %Neutrophils 44.9 % (42.0-75.0); Hematocrit 36.8 % (36.0-47.0); Hemoglobin 11.7 g/dL (12.0-16.0); Mean Corpuscular Hemoglobin 32.4 pg (27.0-31.0); Mean Corpuscular Volume 101.9 fL (78.0-98.0); Platelet Count 225 10x3/uL (130-400); Red Blood Cell (RBC) Count 3.61 mill/uL (4.20-5.40); White Blood Cell (WBC) Count 6.33 10x3/uL (4.8-10.8)
[2025-10-01 04:29] LABS: ALT (SGPT) 23 U/L (Less than 34); AST (SGOT) 35 U/L (11-34); Albumin 2.8 g/dL (3.1-4.5); Alkaline Phosphatase 128 U/L (40-110); Anion Gap 14 mmol/L (10-20); BUN (Urea Nitrogen) 12 mg/dL (9.8-20.1); Bilirubin, Total 0.5 mg/dL (0.3-1.2); Calc. Creatinine Clearance 110 mL/min (70-130); Calcium 8.2 mg/dL (7.8-10.44); Carbon Dioxide 19 mmol/L (22-29); Cardiac Risk 2.6 (Less than 4.5); Chloride 113 mmol/L (98-107); Cholesterol 66 mg/dl (< 200 Desired); Globulin 2.7 g/dL (2.4-3.5); Glucose 143 mg/dL (70-105); HDL Cholesterol 25 mg/dL (>60 Neg Risk); LDL Cholesterol, Calculated 29 mg/dL; Magnesium 2.1 mg/dL (1.6-2.6); Potassium 4.1 mmol/L (3.5-5.1); Sodium 142 mmol/L (136-145); Triglycerides 58 mg/dL (Less than 150)
[2025-10-01] MEDS: Pantoprazole 40 MG DR.TAB PO SCH (09:42)
[2025-10-01 15:08] VITALS: BP 113/73; TEMP 98.1
== END 2025-10-01 15:16 | disposition home or self-care (01) ==
LOC: ERS 15:06 → 2SE 19:13
PROVIDERS: ADMIT Internal Medicine; ATTEND Internal Medicine
DX: R42 Dizziness and giddiness (principal); E87.6 Hypokalemia; E83.42 Hypomagnesemia; E11.9 Type 2 diabetes mellitus without complications; E78.5 Hyperlipidemia, unspecified; K21.9 Gastro-esophageal reflux disease without esophagitis; F41.9 Anxiety disorder, unspecified; Z90.49 Acquired absence of other specified parts of digestive tract; Z90.710 Acquired absence of both cervix and uterus; Z79.899 Other long term (current) drug therapy; Z79.84 Long term (current) use of oral hypoglycemic drugs; N39.0 Urinary tract infection, site not specified; Z88.1 Allergy status to other antibiotic agents; Z88.6 Allergy status to analgesic agent; Z88.8 Allergy status to other drugs, medicaments and biological substances; Z88.5 Allergy status to narcotic agent
CPT/HCPCS: 36415; 36416; 70496; 70498; 70551; 71045; 80053; 80061; 83735; 84100; 84443; 84484; 85025; 85610; 85730; 93005; 93010; 93306; 96365; 96366; 96367; 96372; G0378; J1644; J1815; J3475; J3480; J7120; Q0169; Q9967

== ENCOUNTER 2025-10-10 16:29 | Emergency (ER) | payer OTHER, SELFPAY | END 2025-10-10 17:25 | disposition home or self-care (01) | LOC: ERS 16:29 | DX: E11.649 Type 2 diabetes mellitus with hypoglycemia without coma (principal); E78.00 Pure hypercholesterolemia, unspecified; K21.9 Gastro-esophageal reflux disease without esophagitis; E11.43 Type 2 diabetes mellitus with diabetic autonomic (poly)neuropathy; K31.84 Gastroparesis; M79.4 Hypertrophy of (infrapatellar) fat pad; Z79.899 Other long term (current) drug therapy; Z77.22 Contact with and (suspected) exposure to environmental tobacco smoke (acute) (chronic) | CPT/HCPCS: 36416; 99285 ==